=== PATIENT | female | born 1940 | race Caucasian/White ===

== ENCOUNTER 2016-11-09 00:07 | Inpatient (IN) | payer OTHER, BC ==
[2016-11-09] VITALS (7 sets, daily range): BP systolic 127–188; BP diastolic 44–70
[~2016-11-09] VITALS: Ht 154.9 cm; Wt 54.4 kg
[~2016-11-09 00:07] MED LIST: BACTRIM 400 MG-1 TA1 PO; BAYER ASPIRIN R81 MG PO; COREG3.125 MG PO; FERROUS SULFAT325 M1 PO; HYDRALAZINE HY100 M1 PO; HYDRALAZINE50 MG PO; ISORDIL10 M1 PO; LACTINEX1 TAB.CHEW PO; LANTUS INS100 UNITS/ SUBQ; LASIX20 MG PO; LEVAQUIN250 MG PO; NEURONTIN300 MG PO; NOVOLOG100 U/ML SUBQ; PHOSLO667 M1 PO; PRAVACHOL40 MG PO; PRILOSEC40 MG PO; ROCALTROL0.25 MCG PO; SIMVASTATIN10 MG PO; SYNTHROID0.088 MG PO; VITAMIN C500 M8 PO
--- NOTE | 2016-11-09 00:07 | NUR ---
76Y F BIBA C/O LOW BLOOD SUGAR OF 48 BEFORE EMS ARRIVED ON SCENE, EMS GAVE 25G D10, RECHECKED BS AND WAS 219 BEFORE ARRIVING AT [facility], ONCE PT ARRIVED WE RECHECKED BS AND IT WENT DOWN TO 98. PT DAUGHTER STATES STATES SHE WAS CONFUSED AND WEAK BEFORE EMS ARRIVED . PT DENIES N/V/D; SKIN IS PINK/WARM/DRY; AAOX2 ; LUNGS CLEAR BL; HR EVEN AND REGULAR; PT DENIES ANY FEVER, CP, SOB, OR COUGH AT THIS TIME; PATIENT STATES PAIN OF 0/10 AT THIS TIME; VSS; PATIENT POSITIONED FOR COMFORT; HOB ELEVATED; BEDRAILS UP X2; BED DOWN. ER MD MADE AWARE OF PT STATUS.
--- NOTE | 2016-11-09 00:07 | NUR ---
BIBA TO ER BED 3
--- NOTE | 2016-11-09 00:25 | NUR ---
Patient being evaluated by physician at bedside.
[2016-11-09] MEDS ORDERED: DEXTROSE 50% 50 ML SYR IVP ONE (00:40)
--- NOTE | 2016-11-09 00:48 | NUR ---
BS 48 BEFORE GIVING D50
[2016-11-09] MEDS ORDERED: DEXTROSE 10% 1,000 ML IV SCH (01:55)
[2016-11-09] MEDS ORDERED: ONDANSETRON 4 MG/2 ML VIAL IVP PRN (02:10)
[2016-11-09] MEDS ORDERED: MORPHINE SULFATE 2 MG/ML SYR IVP PRN (02:10)
[2016-11-09] MEDS ORDERED: DEXT 5% /NACL 0.9% 1,000 ML IV SCH (02:10)
[2016-11-09] MEDS ORDERED: LORazepam 2 MG/ML VIAL IVP PRN (02:10)
[2016-11-09] MEDS ORDERED: DEXTROSE 50% 50 ML SYR IVP PRN (02:10)
[2016-11-09] MEDS ORDERED: hydrALAZINE 20 MG/ML VIAL IVP PRN (02:15)
--- NOTE | 2016-11-09 02:18 | NUR ---
MED ORDER RECEIVED, CALLED HOUSE SUPER TO BRING FROM PHARMACY. BS AT LAST CHECK 99.
[2016-11-09] MEDS ORDERED: DEXTROSE 10% 1,000 ML IV ONE (02:21)
--- NOTE | 2016-11-09 02:29 | NUR ---
IVF STARTED, INFUSING WITHOUT PROBLEMS. BS AFTER START OF IVF 104.
--- NOTE | 2016-11-09 02:52 | NUR ---
Patient will be admitted to care of DR ALLEN. Admited to TELE 109B. Will go to room 109B. Belongings list completed. Report to EDINSON PETERSON.
--- NOTE | 2016-11-09 03:00 | NUR ---
PATIENT TRANSFERRED FROM ER VIA GURNEY. PATIENT ACCOMPANIED BY DAUGHTER. NO RESPIRATORY DISTRESS, SOB, OR DISCOMFORT. PATIENT IS A 76-YEAR-OLD, FEMALE, DIAGNOSIS: HYPOGLYCEMIA. INITIAL ASSESSMENT AND BODY CHECK DONE. PATIENT IS AOX3, FORGETFUL, IV ACCESS TO RIGHT WRIST 22G, PATENT. DIALYSIS ACCESS TO LEFT UPPER ARM. DISCUSSED PLAN OF CARE, MEDICATION REGIMENT, AND PAIN MANAGEMENT WITH FAMILY MEMBER AND PATIENT. PLACED PATIENT ON SAFETY/FALL PRECAUTIONS. CALL LIGHT LEFT WITHIN REACH, WILL CONTINUE TO MONITOR.
--- NOTE | 2016-11-09 06:09 | NUR ---
PATIENT IN BED, SLEEPING. NO RESPIRATORY DISTRESS, SOB, OR DISCOMFORT. CALL LIGHT LEFT WITHIN REACH, WILL CONTINUE TO MONITOR.
[2016-11-09] MEDS: BLOOD GLUCOSE MONITORING 1 DEV DEV FS SCH ×4 (06:31→21:56)
[2016-11-09] MEDS: INSULIN ASPART SLIDING SCALE 100 UNITS/ML VIAL SUBQ PRN ×3 (06:31→17:48)
--- NOTE | 2016-11-09 07:18 | NUR ---
REPORT GIVEN TO DAY NURSEMARCOS. PATIENT RESTING IN BED, STABLE. NO RESPIRATORY DISTRESS, SOB, OR DISCOMFORT. ALL NEEDS ATTENDED TO DURING SHIFT, CALL LIGHT LEFT WITHIN REACH.
--- NOTE | 2016-11-09 07:18 | NUR ---
RECEIVED REPORT FROM NIGHT NURSE, PT IS AAOX4 CZECH SPEAKING, IV TO RIGHT WRIST 22G INFUSING WELL, LEFT UPPER ARM AV SHUNT, SKIN INTACT, INITIAL ASSESSMENT COMPLETED, PLAN OF CARE REVIEWED WITH PT, PT VERBALIZED UNDERSTANDING. ALL SAFETY/ FALL PRECAUTIONS MET. ORIENTED PT TO ROOM AND ENVIRONMENT. CALL LIGHT WITHIN REACH. WILL CONTINUE TO MONITOR.
[2016-11-09] MEDS ORDERED: DEXT 5% / NACL 0.9% 500 ML IV SCH (08:00)
--- NOTE | 2016-11-09 08:12 | NUR ---
PATIENT HAS BEEN SCREENED AND CATEGORIZED HIGH NUTRITION RISK. PATIENT WILL BE SEEN WITHIN 1-2 DAYS OF ADMISSION. 11/09/16-11/10/[address]
[2016-11-09] MEDS: ASCORBIC ACID 500 MG TAB PO SCH (08:40)
[2016-11-09] MEDS: ISOSORBIDE DINITRATE 10 MG TAB PO SCH ×2 (08:41→21:00)
[2016-11-09] MEDS: FERROUS SULFATE 325 MG TABEC PO SCH ×2 (08:41→16:44)
[2016-11-09] MEDS: LEVOTHYROXINE 0.088 MG TAB PO SCH (08:41)
[2016-11-09] MEDS: PANTOPRAZOLE 40 MG TABEC PO SCH (08:41)
[2016-11-09] MEDS: CALCITRIOL 0.25 MCG CAPLF PO SCH (08:41)
[2016-11-09] MEDS: ECOTRIN 81 MG TABEC PO SCH (08:42)
[2016-11-09] MEDS: ATORVASTATIN 20 MG TAB PO SCH (08:42)
[2016-11-09] MEDS: FUROSEMIDE 20 MG TAB PO SCH (08:43)
[2016-11-09] MEDS: CALCIUM ACETATE 667 MG TAB PO SCH ×3 (08:49→16:44)
[2016-11-09] MEDS: hydrALAZINE 25 MG TAB PO SCH ×2 (08:49→21:00)
--- NOTE | 2016-11-09 08:50 | NUR ---
DUE MEDICATIONS GIVEN, PT TOLERATED WELL. PT CURRENTLY EATING BREAKFAST. CALL LIGHT WITH IN REACH. WILL CONTINUE TO MONITOR.
[2016-11-09] MEDS ORDERED: PANTOPRAZOLE 40 MG INJ VIAL IVP SCH (09:00)
--- NOTE | 2016-11-09 10:45 | NUR ---
CHECKED IN ON PT, PT CURRENTLY AWAKE RESTING IN BED, DAUGHTER AT BEDSIDE. CALL LIGHT WITHIN REACH.
[2016-11-09] MEDS ORDERED: ESCITALOPRAM 20 MG TAB PO SCH (12:00)
[2016-11-09] MEDS ORDERED: DONEPEZIL 10 MG TAB PO SCH (12:00)
--- NOTE | 2016-11-09 12:30 | NUR ---
DR VASQUEZ IN TO SEE PT
[2016-11-09] MEDS: DEXT 5% /NACL 0.9% 1,000 ML IV SCH (12:37)
--- NOTE | 2016-11-09 14:05 | NUR ---
CHECKED IN ON PT, PT CURRENTLY SLEEPING. CALL LIGHT WITHIN REACH.
[2016-11-09] MEDS ORDERED: CARVEDILOL6.25 MG PO (16:22)
[2016-11-09] MEDS ORDERED: ARICEPT5 MG PO (16:24)
[2016-11-09] MEDS ORDERED: LEXAPRO10 MG PO (16:25)
[2016-11-09] MEDS ORDERED: VITAMIN C500 M8 PO (16:25)
[2016-11-09] MEDS ORDERED: COMBIGAN 0.2%-0.5 ML BOTH EYES (16:30)
--- NOTE | 2016-11-09 16:44 | NUR ---
DUE MEDICATIONS GIVEN. PT TOLERATED WELL, DAUGHTER AT BED SIDE. CALL LIGHT WITHIN REACH.
--- NOTE | 2016-11-09 17:45 | NUR ---
HEMODIALYSIS NURSE NOTIFIED.
--- NOTE | 2016-11-09 18:15 | NUR ---
PT CURRENTLY VISITING WITH DAUGHTER. NO S/S OF DISTRESS OR DISCOMFORT NOTED. CALL LIGHT WITHIN REACH. WILL CONTINUE TO MONITOR.
--- NOTE | 2016-11-09 19:16 | NUR ---
ENDORSED PLAN OF CARE TO NIGHT NURSE, PT IN STABLE CONDITION.
--- NOTE | 2016-11-09 19:20 | NUR ---
RECEIVED PT FROM NAGA PETERSON PT IS AAOX4 MOROCCAN SPEAKER AMBULATORY ON TELEMETRY SR, ON SECOND UNITS OF BLOOD TRANSFUSION WILL BE MONITORING Addendum: 11/10/16 at 0036 by Margot Dow RN WRONG DOCUMENTATION PT IS NOT ON BLOOD TRANSFUSION
--- NOTE | 2016-11-09 19:25 | NUR ---
RECEIVED PT FROM MARCOS PETERSON PT IS MACEDONIAN SPEAKER AAOX4 AMBULATES WITH ANNUAL GIVING DIRECTOR, ON TELEMETRY SR, DIALYSIS ACCESS ON LEFT ARM IV ON RT WRIST INFUSING WELL, RELATIVES AT BED SIDE INITIAL ASSESSMENT DONE
[2016-11-09] MEDS: CARVEDILOL 6.25 MG TAB PO SCH (21:00)
[2016-11-09] MEDS: [UNRECOGNIZED DRUG - OTHER] OP SCH (21:00)
[2016-11-09] MEDS ORDERED: TIMOLOL BOTH EYES SCH (21:00)
[2016-11-09] MEDS ORDERED: SIMVASTATIN 10 MG TAB PO SCH (21:00)
[2016-11-09] MEDS: COMBIGAN OP SCH (21:00)
[2016-11-09] MEDS ORDERED: BRIMONIDINE TARTRATE BOTH EYES SCH (21:00)
--- NOTE | 2016-11-09 21:30 | NUR ---
ON BLOOD TRANSFUSION NOT DISTRESS NOTED ON TELEMETRY SR. Addendum: 11/09/16 at 2330 by Margot Dow RN WRONG DOCUMENTATION PT IS NOT ON BLOOD TRANSFUSION
--- NOTE | 2016-11-09 21:31 | NUR ---
BLOOD SUGAR TEST 119 NOT COVERAGE PT EATING HER HS SNACK
[2016-11-10] VITALS: BP 115/51
--- NOTE | 2016-11-10 | NUR ---
PT SLEEPING WELL NOT DISTRESS NOTED ON TELEMETRY SR
[2016-11-10 04:00] VITALS: BP 156/54
[2016-11-10] MEDS: DEXT 5% /NACL 0.9% 1,000 ML IV SCH (04:38)
[2016-11-10] MEDS: INSULIN ASPART SLIDING SCALE 100 UNITS/ML VIAL SUBQ PRN ×4 (06:12→21:15)
[2016-11-10] MEDS: BLOOD GLUCOSE MONITORING 1 DEV DEV FS SCH ×4 (06:20→21:14)
--- NOTE | 2016-11-10 07:15 | NUR ---
RECEIVED REPORT FROM THE PAIRER INSPECTOR NURSE AT BEDSIDE. PT IS A 76F, BELARUSIAN SPEAKING. SHE IS AWAKE AND ALERT. I INTRODUCED MYSELF AND UPDATED THE BOARD. NO COMPLAINTS AT THIS TIME. NOTED PT HAS A R WRIST 22G, D5NS INFUSING AT 40ML/HR. NOTED THE TELE BOX FOR MONITORING. SHE ALSO HAS AN AV SHUNT IN HER L ARM. SHE IS TO HAVE HD TODAY. WILL FOLLOW UP ON WHAT TIME THEY ARE COMING. SHE HAS SCD'S BUT NOT WEARING THEM. ALL SAFETY MEASURES MET. WILL CONTINUE TO MONITOR PT.
--- NOTE | 2016-11-10 07:55 | NUR ---
PT'S V/S ARE WITHIN NORMAL LIMITS. PT IS RESTING IN BED. BREAKFAST IS SERVED. WILL CONTINUE TO MONITOR PT.
[2016-11-10 08:00] VITALS: BP 148/56
[2016-11-10] MEDS: ASCORBIC ACID 500 MG TAB PO SCH (08:55)
[2016-11-10] MEDS: CALCITRIOL 0.25 MCG CAPLF PO SCH (08:55)
[2016-11-10] MEDS: FERROUS SULFATE 325 MG TABEC PO SCH ×2 (08:55→16:09)
[2016-11-10] MEDS: LEVOTHYROXINE 0.088 MG TAB PO SCH (08:55)
[2016-11-10] MEDS: ATORVASTATIN 20 MG TAB PO SCH (08:57)
[2016-11-10] MEDS: DONEPEZIL 10 MG TAB PO SCH (08:57)
[2016-11-10] MEDS: CALCIUM ACETATE 667 MG TAB PO SCH ×3 (08:58→16:09)
[2016-11-10] MEDS: PANTOPRAZOLE 40 MG TABEC PO SCH (08:58)
[2016-11-10] MEDS: ECOTRIN 81 MG TABEC PO SCH (08:58)
[2016-11-10] MEDS: FUROSEMIDE 20 MG TAB PO SCH (08:59)
[2016-11-10] MEDS: CARVEDILOL 6.25 MG TAB PO SCH ×2 (09:00→21:14)
[2016-11-10] MEDS: amLODIPine 5 MG TAB PO SCH (09:00)
[2016-11-10] MEDS: ESCITALOPRAM 20 MG TAB PO SCH (09:00)
[2016-11-10] MEDS: ISOSORBIDE DINITRATE 10 MG TAB PO SCH ×2 (09:00→21:13)
[2016-11-10] MEDS: hydrALAZINE 25 MG TAB PO SCH ×2 (09:00→21:14)
[2016-11-10] MEDS: [UNRECOGNIZED DRUG - OTHER] OP SCH ×2 (09:08→21:13)
[2016-11-10] MEDS: COMBIGAN OP SCH ×2 (09:08→21:13)
--- NOTE | 2016-11-10 09:10 | NUR ---
ADMINISTERED MORNING MEDS. HELD ALL BP MEDS (5) D/T PT HAVING DIALYSIS LATER, PER MARKETING ASSISTANT RETAIL DIVISION. PT TOLERATED ALL HER MORNING MEDS. NOTED THAT NO CONSENT FOR DIALYSIS WAS SIGNED. PRINTED ONE UP AND HAD PT SIGN. PRINTED THE LABS, AND ORDERS OF DIALYSIS NURSE. WILL GIVE TO HER WHEN SHE ARRIVES. PT REQUESTS A BED BATH. LET THE GREENSKEEPER KNOW. WILL CONTINUE TO MONITOR PT.
--- NOTE | 2016-11-10 10:20 | NUR ---
PT RESTING WITH DAUGHTER AT BEDSIDE. PT HAS NO COMPLAINTS. PT IS WAITING FOR HD TODAY. DIALYSIS NURSE NOT HERE YET. WILL CONTINUE TO MONITOR PT.
[2016-11-10 12:00] VITALS: BP 157/63
--- NOTE | 2016-11-10 12:00 | NUR ---
PT RESTING WITH DAUGHTER AT BEDSIDE. BROUGHT IN HER LUNCH TRAY. PLACED ON BEDSIDE TABLE. PT HAS NO COMPLAINTS. READY TO EAT. WILL CONTINUE TO MONITOR PT.
--- NOTE | 2016-11-10 12:25 | NUR ---
THE DIALYSIS NURSE IS HERE. SHE IS SETTING UP FOR DIALYSIS FOR PT. DAUGHTER AT BEDSIDE. DAUGHTER WILL LEAVE DURING DIALYSIS AND WILL COME BACK AFTER WARDS. WILL CONTINUE TO MONITOR PT.
--- NOTE | 2016-11-10 12:41 | NUR ---
11/10/16 RD INITIAL ASSESSMENT COMPLETED PLEASE REFER TO NUTRITION ASSESSMENT UNDER CARE ACTIVITY FOR ESTIMATED NUTRITIONAL NEEDS. RD RECOMMENDATIONS: 1. CONTINUE CCHO 60G TOLERATED 2. RECOMMEND ADD RENAL DIET TO DIET ORDER 3. PT MEETING >75% OF ESTIMATED PROTEIN AND KCAL NEEDS 4. RD WILL F/U 3-5 DAYS; MODERATE RISK. BRYAN GARG, RD
--- NOTE | 2016-11-10 13:51 | NUR ---
PT AMBULATED TO THE BATHROOM. PT TOLERATED WELL. PT HAS NO COMPLAINTS. WILL CONTINUE TO MONITOR. Addendum: 11/10/16 at 1636 by Britni Banuelos RN WRONG PT. .
--- NOTE | 2016-11-10 15:25 | NUR ---
PT COMPLETED THE DIALYSIS. PT TOLERATED WELL. PER DIALYSIS NURSE, HER LAST V/S WAS 105/41. REMOVED 2L. DAUGHTER AT BEDSIDE. WILL CONTINUE TO MONITOR.
[2016-11-10 16:00] VITALS: BP 145/96
--- NOTE | 2016-11-10 16:00 | NUR ---
V/S IS 98.3F, 145/96, 58, 98%. BP HIGH. PROBABLY WILL NEED TO RESUME BP MEDS IN THE EVENING. WILL NOTIFY THE ONCOMING NIGHT NURSE. WILL CONTINUE TO MONITOR.
--- NOTE | 2016-11-10 18:01 | NUR ---
PT ATE HER DINNER. 80%. PT APPETITE IS GOOD. NO URINE SAMPLE YET. THE DAUGHTER WILL LET ME KNOW OR THE ADMITTING COUNSELOR NURSE KNOW. WILL CONTINUE TO MONITOR PT.
--- NOTE | 2016-11-10 19:05 | NUR ---
ENDORSED PT TO THE COOK CANDY NURSE AT BEDSIDE FOR CONTINUITY OF CARE. PT IS RESTING COMFORTABLY W/ DAUGHTER AT BEDSIDE. STILL NO URINE.
--- NOTE | 2016-11-10 19:15 | NUR ---
RECEIVED REPORT FROM DAY NURSEODETTE. PATIENT RESTING IN BED, WATCHING TELEVISION, FAMILY MEMBER AT BEDSIDE. NO RESPIRATORY DISTRESS, SOB, OR DISCOMFORT. INITIAL ASSESSMENT AND BODY CHECK DONE. PATIENT IS AOX4, SKIN IS INTACT, IV ACCESS TO RIGHT WRIST 22G PATENT. PATIENT HAS DIALYSIS TO LEFT UPPER ARM. DISCUSSED PLAN OF CARE, MEDICATION REGIMENT, AND PAIN MANAGEMENT WITH PATIENT AND FAMILY MEMBER. PATIENT VERBALIZED UNDERSTANDING. PLACED PATIENT ON SAFETY/FALL PRECAUTIONS. CALL LIGHT LEFT WITHIN REACH, WILL CONTINUE TO MONITOR.
[2016-11-10 20:00] VITALS: BP 133/56
--- NOTE | 2016-11-10 20:20 | NUR ---
PATIENT TAKEN OFF UNIT VIA WHEELCHAIR FOR CT SCAN.
--- NOTE | 2016-11-10 20:36 | NUR ---
PATIENT RETURNED FROM CT VIA GURNEY. PATIENT TOLERATED WELL. NO RESPIRATORY DISTRESS, SOB, OR DISCOMFORT. CALL LIGHT LEFT WITHIN REACH, WILL CONTINUE TO MONITOR.
--- NOTE | 2016-11-10 22:06 | NUR ---
PATIENT IN BED, SLEEPING. NO RESPIRATORY DISTRESS, SOB, OR DISCOMFORT. CALL LIGHT LEFT WITHIN REACH, WILL CONTINUE TO MONITOR.
[2016-11-11] VITALS: BP 132/64
--- NOTE | 2016-11-11 00:56 | NUR ---
PATIENT ASLEEP. NO RESPIRATORY DISTRESS, SOB, OR DISCOMFORT. CALL LIGHT LEFT WITHIN REACH, WILL CONTINUE TO MONITOR.
--- NOTE | 2016-11-11 03:03 | NUR ---
PATIENT SLEEPING. NO RESPIRATORY DISTRESS, SOB, OR DISCOMFORT. CALL LIGHT LEFT WITHIN REACH, WILL CONTINUE TO MONITOR.
[2016-11-11 04:00] VITALS: BP 138/56
--- NOTE | 2016-11-11 06:06 | NUR ---
PATIENT IN BED, ASLEEP. NO RESPIRATORY DISTRESS, SOB, OR DISCOMFORT. CALL LIGHT LEFT WITHIN REACH, WILL CONTINUE TO MONITOR.
[2016-11-11] MEDS: BLOOD GLUCOSE MONITORING 1 DEV DEV FS SCH ×2 (06:18→11:46)
[2016-11-11] MEDS: INSULIN ASPART SLIDING SCALE 100 UNITS/ML VIAL SUBQ PRN ×2 (06:20→12:36)
--- NOTE | 2016-11-11 07:12 | NUR ---
REPORT GIVEN TO DAY NURSE, GERARD (FARAZ) AND MARIA ESTHER. PATIENT RESTING IN BED, STABLE. NO RESPIRATORY DISTRESS, SOB, OR DISCOMFORT. ALL NEEDS ATTENDED TO DURING SHIFT, CALL LIGHT LEFT WITHIN REACH.
--- NOTE | 2016-11-11 07:14 | NUR ---
RECEIVED PT FROM Estefany NEVES RN AWAKE LYING ON BED, AAOX4, NO S/S OF RESPIRATORY DISTRESS R DISCOMFORT. WITH IV ACCESS ON R WRIST 22G ON SALINE LOCK, PATENT AND INTACT. WITH DIALYSIS ACCESS ON LEFT UPPER ARM PATENT WITH BRUIT AND THRILLS. SKIN IS INTACT. DISCUSSED PLAN OF CARE, PT VERBALIZED UNDERSTANDING. CALL LIGHT WITHIN REACH,. WILL CONTINUE TO MONITOR.
[2016-11-11 08:00] VITALS: BP 141/53
[2016-11-11] MEDS: ISOSORBIDE DINITRATE 10 MG TAB PO SCH (08:24)
[2016-11-11] MEDS: LEVOTHYROXINE 0.088 MG TAB PO SCH (08:24)
[2016-11-11] MEDS: ATORVASTATIN 20 MG TAB PO SCH (08:24)
[2016-11-11] MEDS: hydrALAZINE 25 MG TAB PO SCH (08:24)
[2016-11-11] MEDS: FUROSEMIDE 20 MG TAB PO SCH (08:24)
[2016-11-11] MEDS: ECOTRIN 81 MG TABEC PO SCH (08:25)
[2016-11-11] MEDS: DONEPEZIL 10 MG TAB PO SCH (08:25)
[2016-11-11] MEDS: FERROUS SULFATE 325 MG TABEC PO SCH (08:25)
[2016-11-11] MEDS: ESCITALOPRAM 20 MG TAB PO SCH (08:25)
[2016-11-11] MEDS: CARVEDILOL 6.25 MG TAB PO SCH (08:25)
[2016-11-11] MEDS: PANTOPRAZOLE 40 MG TABEC PO SCH (08:25)
[2016-11-11] MEDS: ASCORBIC ACID 500 MG TAB PO SCH (08:25)
[2016-11-11] MEDS: CALCIUM ACETATE 667 MG TAB PO SCH ×2 (08:26→11:44)
[2016-11-11] MEDS: CALCITRIOL 0.25 MCG CAPLF PO SCH (08:26)
[2016-11-11] MEDS: amLODIPine 5 MG TAB PO SCH (08:26)
[2016-11-11] MEDS: [UNRECOGNIZED DRUG - OTHER] OP SCH (08:27)
[2016-11-11] MEDS: COMBIGAN OP SCH (08:27)
--- NOTE | 2016-11-11 08:30 | NUR ---
DUE MEDS GIVEN, PT TOLERATED WELL. NO S/S OF RESPIRATORY DISTRESS OR DISCOMFORT. ALL NEEDS MET AT THIS TIME. CALL LIGHT WITHIN REACH, WILL CONTINUE TO MONITOR.
[2016-11-11 12:00] VITALS: BP 125/44
--- NOTE | 2016-11-11 12:10 | NUR ---
LUNCH SERVED, PT HAS GOOD APPETITE. WITH RELATIVE AT BEDSIDE. DUE MED GIVEN, TOLERATED WELL. CALL LIGHT WITHIN REACH, WILL CONTINUE TO MONITOR.
--- NOTE | 2016-11-11 14:00 | NUR ---
DISCHARGE TEACHING GIVEN, PT VERBALIZED UNDERSTANDING. HOME MEDICATION (COMBIGAN) GIVEN. NO S/S OF RESPIRATORY DISTRESS OR DISCOMFORT. REMOVED ID WRISTBAND, TELE AND IV ACCESS, CATHETER TIP INTACT. LEFT THE UNIT ON A WHEELCHAIR ACCOMPANIED BY DAUGHTER IN STABLE CONDITION.
== END 2016-11-11 14:00 | disposition home or self-care (01) | DRG 637 ==
LOC: MED 00:07 → MTU 02:36
PROVIDERS: ADMIT Family Medicine; ATTEND Family Medicine
PROC: 5A1D00Z (ICD-10-PCS; principal; 2016-11-10)
DX: E11.649 Type 2 diabetes mellitus with hypoglycemia without coma (principal); G93.41 Metabolic encephalopathy; E43 Unspecified severe protein-calorie malnutrition; I50.43 Acute on chronic combined systolic (congestive) and diastolic (congestive) heart failure; I13.2 Hypertensive heart and chronic kidney disease with heart failure and with stage 5 chronic kidney disease, or end stage renal disease; D68.69 Other thrombophilia; N18.6 End stage renal disease; N17.0 Acute kidney failure with tubular necrosis; E11.65 Type 2 diabetes mellitus with hyperglycemia; E11.22 Type 2 diabetes mellitus with diabetic chronic kidney disease; E11.51 Type 2 diabetes mellitus with diabetic peripheral angiopathy without gangrene; E78.5 Hyperlipidemia, unspecified; D53.9 Nutritional anemia, unspecified; E03.9 Hypothyroidism, unspecified; F32.9 Major depressive disorder, single episode, unspecified; F03.90 Unspecified dementia, unspecified severity, without behavioral disturbance, psychotic disturbance, mood disturbance, and anxiety; K21.9 Gastro-esophageal reflux disease without esophagitis; E83.51 Hypocalcemia; I25.10 Atherosclerotic heart disease of native coronary artery without angina pectoris; I16.0 Hypertensive urgency; D63.8 Anemia in other chronic diseases classified elsewhere; G20 Parkinson's disease; Z99.2 Dependence on renal dialysis; Z68.22 Body mass index [BMI] 22.0-22.9, adult; Z79.899 Other long term (current) drug therapy; Z79.4 Long term (current) use of insulin; Z86.718 Personal history of other venous thrombosis and embolism; Z83.3 Family history of diabetes mellitus

== ENCOUNTER 2016-11-17 11:30 | Emergency (ER) | payer OTHER, BC ==
[~2016-11-17] VITALS: Ht 154.9 cm; Wt 54.4 kg
[~2016-11-17 11:30] MED LIST changes: +ARICEPT5 MG PO; +CARVEDILOL6.25 MG PO; +COMBIGAN 0.2%-0.5 ML BOTH EYES; +LEXAPRO10 MG PO
[2016-11-17 11:37] VITALS: BP 161/81
--- NOTE | 2016-11-17 11:44 | NUR ---
PT AMBULATED WITH ASSISTANCE TO BED 2 AT THIS TIME.
--- NOTE | 2016-11-17 11:54 | NUR ---
PATIENT PRESENTS TO ED WITH DIARRHEA X3 DAYS WITH GEN WEAKNESS. PT DAUGHTER STATES PATIENT WAS FEELING FATIGUED TO GO TO HD TODAY, HX: DM, HTN, HD MWF WITH SHERRY SHUNT HAS BRUIT AND THRILL, HIGH CHOLESTEROL, HYPOTHYROID, AND POSSIBLE CHF. DENIES N/V; SKIN IS PINK/WARM/DRY; AAOX4 WITH EVEN AND STEADY GAIT; LUNGS CLEAR BL; HR EVEN AND REGULAR; PT DENIES ANY FEVER, CP, SOB, OR COUGH AT THIS TIME; PATIENT STATES PAIN OF 0/10 AT THIS TIME; VSS; PATIENT POSITIONED FOR COMFORT; HOB ELEVATED; BEDRAILS UP X2; BED DOWN. ER MD MADE AWARE OF PT STATUS.
[2016-11-17] MEDS ORDERED: NACL 0.9% 1,000 ML IV SCH (11:56)
[2016-11-17 13:57] VITALS: BP 161/81
== END 2016-11-17 13:45 | disposition home or self-care (01) ==
LOC: MED 11:30
DX: E11.65 Type 2 diabetes mellitus with hyperglycemia (principal); R19.7 Diarrhea, unspecified; K21.9 Gastro-esophageal reflux disease without esophagitis; I12.0 Hypertensive chronic kidney disease with stage 5 chronic kidney disease or end stage renal disease; E11.22 Type 2 diabetes mellitus with diabetic chronic kidney disease; N18.6 End stage renal disease; Z79.82 Long term (current) use of aspirin; Z99.2 Dependence on renal dialysis; Z79.4 Long term (current) use of insulin
CPT/HCPCS: 36415; 80053; 83690; 85025; 96360; 99284; J7030

== ENCOUNTER 2017-07-13 20:09 | Emergency (ER) | payer OTHER, BC ==
[~2017-07-13] VITALS: Ht 154.9 cm; Wt 54.4 kg
[2017-07-13 20:18] VITALS: BP 145/71
[2017-07-13] MEDS ORDERED: NOVOLIN R100 UNITS/ SUBQ (20:39)
[2017-07-13] MEDS ORDERED: TOUJEO300 U/ML SC (20:43)
[2017-07-13] MEDS ORDERED: COREG3.125 MG PO (20:44)
[2017-07-13] MEDS ORDERED: MYSOLINE250 MG PO (20:44)
--- NOTE | 2017-07-13 22:11 | NUR ---
PATIENT LEFT WITHOUT BEING SEEN BY DR. franco. NO FURTHER CARE PROVIDED FOR PATIENT.
== END 2017-07-13 22:11 | disposition left against medical advice (07) ==
LOC: MED 20:09
DX: R73.9 Hyperglycemia, unspecified (principal); Z53.21 Procedure and treatment not carried out due to patient leaving prior to being seen by health care provider

== ENCOUNTER 2017-11-13 19:59 | Inpatient (IN) | payer OTHER, BC ==
[~2017-11-13] VITALS: Ht 160 cm; Wt 65.3 kg
[~2017-11-13 19:59] MED LIST changes: -ARICEPT5 MG PO; +ASCO500T45 PO; +ASPI81EC30 PO; -BACTRIM 400 MG-1 TA1 PO; -BAYER ASPIRIN R81 MG PO; +BRIM5SOL2 BOTH EYES; +CARV3.12 PO; -CARVEDILOL6.25 MG PO; -COMBIGAN 0.2%-0.5 ML BOTH EYES; -COREG3.125 MG PO; +DONE5TAB6 PO; +ESCI10TA PO; +FERR-193 PO; -FERROUS SULFAT325 M1 PO; -HYDRALAZINE HY100 M1 PO; -HYDRALAZINE50 MG PO; +INSU100S45 SUBQ; +INSU300S SC; -ISORDIL10 M1 PO; +ISOS10TA9 PO; -LACTINEX1 TAB.CHEW PO; -LANTUS INS100 UNITS/ SUBQ; +LANTUS SUBQ; -LASIX20 MG PO; -LEVAQUIN250 MG PO; +LEVO0.083 PO; -LEXAPRO10 MG PO; -NEURONTIN300 MG PO; -NOVOLOG100 U/ML SUBQ; +OMEP40EC1 PO; +PHO667 PO; -PHOSLO667 M1 PO; +PRAV40TA1 PO; -PRAVACHOL40 MG PO; -PRILOSEC40 MG PO; +PRIM250T70 PO; -ROCALTROL0.25 MCG PO; -SIMVASTATIN10 MG PO; +SLIDE SUBQ; -SYNTHROID0.088 MG PO; -VITAMIN C500 M8 PO
[2017-11-13 20:01] VITALS: BP 153/58
--- NOTE | 2017-11-13 20:07 | NUR ---
77/F BIBA W C/O CONFUSION. EMS REPORTS FAMILY STATES PT HAS BEEN CONFUSED WITH LETHARGY X 1900 TODAY. DAUGHTER REPORTS PT WAS DROWSY, N/V X1, DENIES SOB/CP/COUGH, DENIES ANY PAIN AT THIS TIME. PT PLACED ON ELECTRON BEAM PHOTO MASK MAKER. ACCUCHECK 79, DTR REPORTS PT TOOK INSULIN BEFORE 1830 TODAY, BUT REFUSED TO EAT. GCS 15, AOX4, NO ACUTE DISTRESS NOTED AT THIS TIME. 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
--- NOTE | 2017-11-13 20:07 | NUR ---
BIBA TO ER BED 4
[2017-11-13] MEDS ORDERED: NACL 0.9% 250 ML IV ONE (21:05)
[2017-11-13] MEDS ORDERED: ONDANSETRON 4 MG/2 ML VIAL IVP ONE (21:05)
--- NOTE | 2017-11-13 22:00 | NUR ---
Patient appears to be resting comfortably in bed. Vital Signs within normal limits. Respirations even and unlabored.
[2017-11-13 22:39] LABS: HEMATOCRIT 39.6 % (36-48); HEMOGLOBIN 13.2 g/dL (12.0-16.0); MEAN CORPUSCULAR HEMOGLOBIN 32 pg (27-31); MEAN CORPUSCULAR HGB CONC 33 g/dL (33-37); MEAN CORPUSCULAR VOLUME 96 fL (80-94); PLATELET COUNT (AUTO) 152 K/uL (140-450); RED BLOOD CELL COUNT(AUTO) 4.12 MIL/uL (4.20-5.40); RED CELL DISTRIBUTION WIDTH 14.9 % (11.6-13.7); WHITE BLOOD COUNT (AUTO) 11.9 K/uL (4.8-10.8)
[2017-11-13 22:52] LABS: ALBUMIN 3.9 g/dL (3.4-5.0); ANION GAP 16.1 (8-16); ASPARTATE AMINOTRANSFERASE 21 U/L (15-37); CARBON DIOXIDE 31.4 mmol/L (21-32); CHLORIDE 91 mmol/L (98-107); GLUCOSE 97 mg/dL (74-106); POTASSIUM 5.5 mmol/L (3.5-5.1); SODIUM SERUM 133 mmol/L (136-145); TOTAL BILIRUBIN 0.5 mg/dL (0.0-1.0); UREA NITROGEN, BLOOD 53 mg/dL (7-18)
[2017-11-13 22:54] LABS: APPEARANCE,URINE CLEAR (CLEAR); BILIRUBIN,URINE NEGATIVE (NEGATIVE); BLOOD, URINE NEGATIVE (NEGATIVE); COLOR,URINE YELLOW (YELLOW); LEUKOCYTE ESTERASE ,URINE NEGATIVE (NEGATIVE); NITRITE, URINE NEGATIVE (NEGATIVE); UGLUCOSE NEGATIVE (NEGATIVE)
--- NOTE | 2017-11-13 22:56 | NUR ---
REPORT GIVEN TO NICHOLAS JEFFERSON ON ABNORMAL CREATINE LABS.
[2017-11-13 22:58] LABS: CREATININE 5.2 mg/dL (0.6-1.3)
[2017-11-13 23:06] LABS: EOSINOPHILS % (MANUAL) 2 % (0-4); LYMPHOCYTES % (MANUAL) 18 % (20-46); MONOCYTES % (MANUAL) 2 % (5-12)
[2017-11-13 23:23] LABS: HYALINE CASTS, URINE 0-10 /LPF (None Seen); RBC,URINE 0-5 (RARE) /HPF (0-5); WBC,URINE 0-5 (RARE) /HPF (0-5)
--- NOTE | 2017-11-13 23:33 | NUR ---
Patient will be admitted to care of GARRETT. Admited to TELE. Will go to room 107A. Belongings list completed. BEDSIDE Report to NENA ARMAS.IV SL AND PATENT
[2017-11-13] MEDS ORDERED: HYDROcodone/APAP 7.5/325 MG 1 TAB PO PRN (23:50)
[2017-11-13] MEDS ORDERED: ONDANSETRON 4 MG/2 ML VIAL IVP PRN (23:50)
[2017-11-13] MEDS ORDERED: ACETAMINOPHEN 325 MG TAB PO PRN (23:50)
[2017-11-14 00:20] VITALS: BP 158/72
--- NOTE | 2017-11-14 00:20 | NUR ---
PATIENT IS AWAKE ALERT ORIENTED WITH PERIODS OF FORGETFULNESS SPEAKS GIBRALTARIAN IS ACCOMPANIED BY DAUGHTER BLUE ADMIT DX WEAKNESS.PATIENT COMPLAINS OF ABDOMINAL PAIN FOR 2 DAYS WITH NAUSEA AND VOMITING PATIENT STATES," I LAST VOMITED YESTERDAY." PATIENT DENIES ANY EPISODE OF N/V TODAY OR DIARRHEA PATIENT STATES SHE FEELS WEAK. PATIENT AND DAUGHTER BLUE INFORMED ME THAT PATIENT HAS FALLEN IN THE PAST AND PATIENT USES A WALKER OR A CANE AT HOME AND NEEDS ASSISTANCE TO WALK. SKIN CHECK DONE UPON ADMISSION AND PATIENT SKIN IS CURRENTLY INTACT. VITALS SIGNS TAKEN AND PATIENT HAS NO COMPLAINS OF PAIN AT THIS TIME PATIENT STATES,"ONLY IF I TOUCH MY STOMACH I FEEL THE PAIN." PATIENT AND DAUGHTER BLUE WERE ORIENTED HOW TO USE THE CALL LIGHT AND ORIENTED TO ROOM AND VISITING HOURS. PLAN OF CARE DISCUSSED WITH THE PATIENT AND DAUGHTER MEDICAL INFORMATION OBTAINED ALSO BY DAUGHTER.WILL CONTINUE TO MONITOR.
[2017-11-14] MEDS ORDERED: LEVOFLOXACIN 750 MG/D5W PREMIX 150 ML IV SCH (00:30)
--- NOTE | 2017-11-14 00:30 | NUR ---
Patient's Plan of Care was discussed and reviewed with PAWEL: ASHISH
[2017-11-14 00:38] LABS: CHOL/HDL RATIO 3.2 (1-4.5); FREE T4 (FREE THYROXINE) 1.17 ng/dL (0.76-1.46); MAGNESIUM 2.6 mg/dL (1.8-2.4); PHOSPHORUS 5.6 mg/dL (2.5-4.9); THYROID STIMULATING HORMONE 3.85 uIU/mL (0.34-3.74)
--- NOTE | 2017-11-14 01:00 | NUR ---
I CALLED DAUGHTER BLUE AND SHE WAS ABLE TO TELL ME PATIENT'S BARRATTE OPERATOR NAME MD DIGGS AND SHE ALSO TOLD ME THAT PATIENT GETS DIALYZED AT THE [facility] ON Tue,TUE, AND TUE. MD GAY WAS INFORMED.
[2017-11-14] MEDS: NACL 0.9% 1,000 ML IV SCH ×2 (01:15→23:48)
--- NOTE | 2017-11-14 01:25 | NUR ---
PATIENT SLEEPING ANTIBIOTIC LEVAQUIN IV CURRENTLY INFUSING WELL.WILL CONTINUE TO MONITOR THE PATIENT.
[2017-11-14] MEDS ORDERED: PRIMIDONE 250 MG TAB PO PRN (01:30)
--- NOTE | 2017-11-14 01:30 | NUR ---
MRSA HAS BEEN COLLECTED AND SEND TO THE LAB. FORKLIFT MATERIAL HANDLER DEVON BROUGHT SOME SCD'S FOR THE PATIENT PATIENT EDUCATION DONE ON THE IMPORTANCE OF WEARING SCD'S TO DVT PROPHALAXIS PATIENT VERBALIZES UNDERSTANDING WILL CONTINUE TO MONITOR.PATIENT HAS BEEN SEEN BY MD GAY.
[2017-11-14 01:47] LABS: PROTHROMBIN TIME 10.3 secs (10.8-13.4)
--- NOTE | 2017-11-14 03:30 | NUR ---
PATIENT SLEEPING WELL IN NO DISTRESS WILL CONTINUE TO MONITOR.
[2017-11-14 04:00] VITALS: BP 145/65
[2017-11-14] MEDS: metroNIDAZOLE 500 MG/NS PREMIX 100 ML IV SCH ×3 (04:32→21:35)
[2017-11-14] MEDS ORDERED: metroNIDAZOLE 500 MG/NS PREMIX 100 ML IV SCH (05:00)
--- NOTE | 2017-11-14 05:52 | NUR ---
PATIENT IS CURRENTLY RESTING IN BED SLEEPING. I ASKED MDM SR DEVON IF SHE COULD GET SYNTHROID MED FOR THIS MORNING ITS NOT AVAILABLE IN TELE OR MEDSURG. RN DEVON SAID SHE WILL ASK PHARMACY THIS MORNING WHEN THEY COME IN.
[2017-11-14] MEDS: BLOOD GLUCOSE MONITORING 1 DEV DEV FS SCH ×4 (06:23→21:35)
--- NOTE | 2017-11-14 06:24 | NUR ---
PATIENT ACCUCHECK DONE BLOOD SUGAR 167 NO INSULIN GIVEN PATIENT IS NPO AT THIS TIME AND PATIENT STATES." MY BLOOD SUGAR WILL DROP FAST IF YOU GIVE ME INSULIN AND I DON'T EAT." I WILL ENDORSE TO AM SHIFT FOR NOW PATIENT IS RESTING COMFORTABLY IN BED.CALL LIGHT WITHIN REACH WILL CONTINUE TO MONITOR.
--- NOTE | 2017-11-14 07:22 | NUR ---
PATIENT IS CURRENTLY SLEEPING REPORT ENDORSED AT BEDSIDE TO RN SHANE.
--- NOTE | 2017-11-14 07:25 | NUR ---
RECEIVED REPORT FROM UTILITY TECHNICIAN NURSE. PT IS SLEEPING IN BED BUT EASILY AWAKEN, PT IS AAOX4, AMBULATES WITH ASSIST, SKIN IS INTACT, IV IS ON THE RT AC, PATENT, INTACT, FLUSHING WELL, NO S/S OF RESPIRATORY DISTRESS OR DISCOMFORT NOTED, DISCUSSED PLAN OF CARE WITH PT, PT VERBALIZED UNDERSTANDING, SAFETY/FALL PRECAUTIONS ARE IN PLACE, CALL LIGHT IS WITHIN REACH, WILL CONTINUE TO MONITOR.
[2017-11-14 08:00] VITALS: BP 151/51
[2017-11-14] MEDS: ECOTRIN 81 MG TABEC PO SCH (08:31)
[2017-11-14] MEDS: LEVOTHYROXINE 0.088 MG TAB PO SCH (08:31)
[2017-11-14] MEDS: ESCITALOPRAM 20 MG TAB PO SCH (08:32)
[2017-11-14] MEDS: CALCIUM ACETATE 667 MG TAB PO SCH ×3 (08:33→17:30)
[2017-11-14] MEDS: PANTOPRAZOLE 40 MG TABEC PO SCH (08:33)
[2017-11-14] MEDS: DOCUSATE SODIUM 100 MG GELCAP PO SCH ×2 (08:34→21:35)
[2017-11-14] MEDS: LACTOBACILLUS RHAMNOSUS GG 1 EACH CAP PO SCH (08:34)
[2017-11-14] MEDS: FERROUS SULFATE 325 MG TABEC PO SCH ×2 (08:34→17:30)
--- NOTE | 2017-11-14 08:34 | NUR ---
DUE MEDICATIONS GIVEN, PT TOLERATED WELL, CALL LIGHT IS WITHIN REACH.
[2017-11-14] MEDS: DONEPEZIL 10 MG TAB PO SCH (08:35)
[2017-11-14] MEDS: ASCORBIC ACID 500 MG TAB PO SCH (08:36)
[2017-11-14] MEDS: CARVEDILOL 3.125 MG TAB PO SCH ×2 (08:37→21:34)
[2017-11-14] MEDS: ISOSORBIDE DINITRATE 10 MG TAB PO SCH ×2 (08:37→21:35)
[2017-11-14] MEDS ORDERED: METOCLOPRAMIDE 10 MG TAB PO PRN (08:50)
[2017-11-14] MEDS ORDERED: NON-FORMULARY ITEM (Pravastatin Sodium* (Pravachol*) 40 MG) PO SCH (09:00)
[2017-11-14] MEDS ORDERED: TIMOLOL BOTH EYES SCH (09:00)
[2017-11-14] MEDS ORDERED: BRIMONIDINE TARTRATE BOTH EYES SCH (09:00)
--- NOTE | 2017-11-14 09:02 | NUR ---
PATIENT HAS BEEN SCREENED AND CATEGORIZED MODERATE NUTRITION RISK. PATIENT WILL BE SEEN WITHIN 3-5 DAYS OF ADMISSION. 11/16/17-11/18/[address]
[2017-11-14] MEDS: SIMVASTATIN 20 MG TAB PO SCH (10:28)
--- NOTE | 2017-11-14 10:56 | NUR ---
ASSISTED PT TO RESTROOM AND BACK INTO BED, PATIENT'S DAUGHTER IS AT BEDSIDE.
[2017-11-14 12:00] VITALS: BP 144/55
--- NOTE | 2017-11-14 12:06 | NUR ---
PT TAKEN OFF UNIT AND TAKEN TO RADIOLOGY FOR CT SCAN. PT LEFT IN STABLE CONDITION.
--- NOTE | 2017-11-14 12:27 | NUR ---
NOTIFIED DIALYSIS NURSE PARKER. PT IS IN NEED OF DIALYSIS TODAY.
--- NOTE | 2017-11-14 13:05 | NUR ---
PT HAS RETURNED TO HER ROOM. PT DAUGHTER AT BEDSIDE. PT HAD A LOOSE BM THAT REQUIRED ASSISTANCE TO THE TOILET BY THE NURSE. PT WAS CLEANED UP, NEW YELLOW GOWN AND YELLOW SOCKS WERE PUT ON. PT NOW IN BED RESTING. NO S/S OF DISTRESS. IV WAS CONNECTED. MEDICATIONS ADMINISTERED AND WELL TOLERATED. CALL LIGHT WITHIN REACH. WILL CONTINUE TO MONITOR.
--- NOTE | 2017-11-14 15:51 | NUR ---
PT IN BED RESTING. DAUGHTER IN ROOM WITH HER. WAITING FOR DIALYSIS NURSE TO START. SPOKE WITH DIALYSIS NURSE AND SHE ESTIMATES BEGINNING DIALYSIS AT 1800. NO S/S OF RESPIRATORY DISTRESS OR DISCOMFORT. CALL LIGHT WITHIN REACH. BED IN LOWEST POSITION. WILL CONTINUE TO MONITOR.
[2017-11-14 16:00] VITALS: BP 140/45
--- NOTE | 2017-11-14 17:23 | NUR ---
ENDORSED TO NICHOLAS NEVES. PT STABLE AT THIS TIME.
--- NOTE | 2017-11-14 19:26 | NUR ---
PATIENT REPORT GIVEN AT BEDSIDE. PATIENT ENDORSED IN STABLE CONDITION. HEMODIALYSIS IN PROGRESS
--- NOTE | 2017-11-14 19:27 | NUR ---
RECEIVED REPORT FROM DAY SHIFT NURSE. HEMODIALYSIS ON GOING, AV FISTULA TO LEFT UPPER ARM. NO DISTRESS NOTED. DIALYSIS NURSE AT BEDSIDE. IV TO RIGHT AC #20G, NS AT 20 ML/HR. SAFETY PRECAUTION IN PLACE. CALL LIGHT WITHIN REACH. WILL CONTINUE TO MONITOR.
--- NOTE | 2017-11-14 21:10 | NUR ---
HEMODIALYSIS DONE. OUTPUT 1600 ML. V/S WITHIN NORMAL LIMITS. WILL CONTINUE TO MONITOR.
[2017-11-14] MEDS: INSULIN LISPRO SLIDING SCALE 100 UNITS/ML VIAL SUBQ PRN (21:26)
[2017-11-14] MEDS: INSULIN LANTUS 100 UNITS/ML 10 ML VIAL SUBQ SCH (21:34)
--- NOTE | 2017-11-14 21:36 | NUR ---
V/S TAKEN. BP 127/50, HR 60. DR. BURGER MADE AWARE OF V/S AND SAID IT'S OKAY TO GIVE BP MEDS.
--- NOTE | 2017-11-14 22:00 | NUR ---
PT IN BED, AWAKE. NO C/O PAIN. AV FISTULA DRESSING CLEAN DRY AND INTACT. PT KEPT CLEAN, DRY AND COMFORTABLE. SAFETY PRECAUTION IN PLACE. CALL LIGHT WITHIN REACH.
[2017-11-15] VITALS: BP 122/53
--- NOTE | 2017-11-15 00:20 | NUR ---
PT SLEEPING BUT EASILY AROUSABLE. NO DISTRESS NOTED. SAFETY PRECAUTION IN PLACE. CALL LIGHT WITHIN REACH.
--- NOTE | 2017-11-15 03:05 | NUR ---
PT SLEEPING BUT WAKES EASILY. NO S/S OF PAIN OR DISCOMFORT. CALL LIGHT WITHIN REACH.
[2017-11-15] MEDS: metroNIDAZOLE 500 MG/NS PREMIX 100 ML IV SCH ×3 (05:38→21:00)
[2017-11-15] MEDS: LEVOTHYROXINE 0.088 MG TAB PO SCH (05:39)
--- NOTE | 2017-11-15 06:00 | NUR ---
BS CHECKED 53. DEXTROSE 50% ABBOJECT IVP ADMINISTERED ORDERED. WILL CONTINUE TO MONITOR.
[2017-11-15] MEDS: DEXTROSE 50% 50 ML SYR IVP PRN ×2 (06:15→21:23)
--- NOTE | 2017-11-15 07:00 | NUR ---
RECHECKED BLOOD SUGAR 184. NO DISTRESS NOTED. CALL LIGHT WITHIN REACH.
[2017-11-15 07:09] LABS: BASOPHILS # (AUTO) 0.1 K/uL (0.00-0.22); BASOPHILS % (AUTO) 0.8 % (0.0-2.0); EOSINOPHILS # (AUTO) 0.1 K/uL (0-0.4); HEMATOCRIT 35.1 % (36-48); HEMOGLOBIN 11.7 g/dL (12.0-16.0); LYMPHOCYTES # (AUTO) 0.6 K/uL (2.5-16.5); LYMPHOCYTES % (AUTO) 8.9 % (20.5-51.1); MEAN CORPUSCULAR HEMOGLOBIN 32 pg (27-31); MEAN CORPUSCULAR HGB CONC 33 g/dL (33-37); MEAN CORPUSCULAR VOLUME 96 fL (80-94); MONOCYTES # (AUTO) 0.6 K/uL (0.8-1.0); MONOCYTES % (AUTO) 8.8 % (1.7-9.3); NEUTROPHILS # (AUTO) 4.9 K/uL (1.8-7.7); NEUTROPHILS % (AUTO) 79.5 % (42.2-75.2); PLATELET COUNT (AUTO) 157 K/uL (140-450); RED BLOOD CELL COUNT(AUTO) 3.67 MIL/uL (4.20-5.40); RED CELL DISTRIBUTION WIDTH 15.3 % (11.6-13.7); WHITE BLOOD COUNT (AUTO) 6.3 K/uL (4.8-10.8)
--- NOTE | 2017-11-15 07:15 | NUR ---
ENDORSED PT TO DAY SHIFT NURSE. PT IN STABLE CONDITION.
--- NOTE | 2017-11-15 07:20 | NUR ---
RECEIVED REPORT FROM EQUIPMENT RECORDS SUPERVISOR NURSE, PT IS SLEEPING IN BED AT THIS TIME BUT EASILY AWAKEN, PT IS AAOX4, FORGETFUL, AMBULATES WITH ASSIST, IV IS ON THE RIGHT AC, PATENT, INTACT, FLUSHING WELL, NO S/S OF RESPIRATORY DISTRESS OR DISCOMFORT NOTED, DISCUSSED PLAN OF CARE WITH PT, PT VERBALIZED UNDERSTANDING, SAFETY/FALL PRECAUTIONS ARE IN PLACE, CALL LIGHT IS WITHIN REACH, WILL CONTINUE TO MONITOR.
[2017-11-15 07:23] LABS: PHOSPHORUS 4.7 mg/dL (2.5-4.9)
[2017-11-15 07:25] LABS: ANION GAP 13.1 (8-16); CARBON DIOXIDE 29.7 mmol/L (21-32); CHLORIDE 101 mmol/L (98-107); CREATININE 3.3 mg/dL (0.6-1.3); GLUCOSE 64 mg/dL (74-106); POTASSIUM 3.8 mmol/L (3.5-5.1); SODIUM SERUM 140 mmol/L (136-145); UREA NITROGEN, BLOOD 22 mg/dL (7-18)
[2017-11-15 08:00] VITALS: BP 180/63
[2017-11-15] MEDS: DOCUSATE SODIUM 100 MG GELCAP PO SCH ×2 (08:13→21:09)
[2017-11-15] MEDS: BLOOD GLUCOSE MONITORING 1 DEV DEV FS SCH ×4 (08:23→21:13)
[2017-11-15] MEDS: CALCIUM ACETATE 667 MG TAB PO SCH ×3 (08:50→17:14)
[2017-11-15] MEDS: ISOSORBIDE DINITRATE 10 MG TAB PO SCH ×2 (08:52→21:10)
[2017-11-15] MEDS: ECOTRIN 81 MG TABEC PO SCH (08:52)
[2017-11-15] MEDS: ESCITALOPRAM 20 MG TAB PO SCH (08:53)
[2017-11-15] MEDS: PANTOPRAZOLE 40 MG TABEC PO SCH (08:54)
[2017-11-15] MEDS: SIMVASTATIN 20 MG TAB PO SCH (08:54)
[2017-11-15] MEDS: LACTOBACILLUS RHAMNOSUS GG 1 EACH CAP PO SCH (08:54)
[2017-11-15] MEDS: DONEPEZIL 10 MG TAB PO SCH (08:54)
[2017-11-15] MEDS: ASCORBIC ACID 500 MG TAB PO SCH (08:55)
[2017-11-15] MEDS: FERROUS SULFATE 325 MG TABEC PO SCH ×2 (08:55→17:14)
[2017-11-15] MEDS: CARVEDILOL 3.125 MG TAB PO SCH ×2 (08:55→21:09)
--- NOTE | 2017-11-15 09:44 | NUR ---
PATIENT HAS BEEN SCREENED AND CATEGORIZED MODERATE NUTRITION RISK. PATIENT WILL BE SEEN WITHIN 3-5 DAYS OF ADMISSION. 11/16/17-11/18/[address]
[2017-11-15] MEDS: INSULIN LISPRO SLIDING SCALE 100 UNITS/ML VIAL SUBQ PRN ×2 (12:09→17:58)
--- NOTE | 2017-11-15 14:30 | NUR ---
CALLED THE PATIENT'S DAUGHTER BULE AT [phone], I LET HER KNOW DR. MOLINA, THE GI SPECIALIST HAD CAME IN TO SEE THE PATIENT AND WAS RECOMMENDING AN EGD AND COLONOSCOPY TO BE DONE. BLUE ASKED ME TO CALL HER SISTER FERNANDA AT [phone] BECAUSE SHE WAS OUT OF TOWN TODAY.
[2017-11-15] MEDS ORDERED: MAGNESIUM CITRATE 300 ML BTL PO SCH (15:36)
[2017-11-15 16:00] VITALS: BP 156/65
--- NOTE | 2017-11-15 17:00 | NUR ---
I CALLED THE PATIENT'S DAUGHTER FERNANDA AT [phone], I LET HER KNOW THE DR. MOLINA WAS RECOMMENDING AN EGD AND COLONOSCOPY. FERNANDA SAID SHE WOULD BE COMING IN TODAY TO SEE THE PATIENT AND SIGN THE CONSENT.
[2017-11-15] MEDS: SENNA 8.6 MG TAB PO SCH (17:14)
--- NOTE | 2017-11-15 18:37 | NUR ---
CALLED DIALYSIS NURSE TO LET HER KNOW THERE WAS DIALYSIS ORDERED FOR THE PATIENT. PARKER SAID SHE WOULD BE HERE EARLY TOMORROW MORNING.
--- NOTE | 2017-11-15 19:20 | NUR ---
PT STABLE AT THIS TIME. ENDORSED PT TO MARINE CARGO SURVEYOR NURSE FOR CONTINUITY OF CARE.
--- NOTE | 2017-11-15 19:21 | NUR ---
RECD. RESTING IN BED, AWAKE A/OX3, WITH FORGETFULNESS, RESPIRATION EVEN AND UNLABORED. IV OF NS AT 20 ML/HR INFUSING, RIGHT WRIST G22. AV SHUNT AT THE LEFT ARM WITH BRUIT AND THRILL. CONVERSING WITH FAMILY AT THE BEDSIDE. PLAN OF CARE FOR THE SHIFT DISCUSSED. INSTRUCTED TO CALL NURSE BEFORE GETTING OUT OF BED. VERBALIZED UNDERSTANDING. SAFETY MEASURES ENFORCED. DENIES PAIN 0/10.
--- NOTE | 2017-11-15 19:30 | NUR ---
Patient's Plan of Care was discussed and reviewed with LINE DECORATOR: HEIDI
[2017-11-15] MEDS: INSULIN LANTUS 100 UNITS/ML 10 ML VIAL SUBQ SCH (21:00)
[2017-11-15] MEDS ORDERED: LEVOFLOXACIN 750 MG/D5W PREMIX 150 ML IV SCH (21:00)
[2017-11-15] MEDS: LACTULOSE 20 GM/30 ML UDC PO SCH (21:09)
--- NOTE | 2017-11-15 21:23 | NUR ---
BS - 42, MEDICATED WITH D50 IVP BY CHARGE NURSE CHARLES.
[2017-11-15] MEDS ORDERED: DEXT 5% / NACL 0.45% 1,000 ML IV SCH (21:40)
--- NOTE | 2017-11-15 23:00 | NUR ---
INSTRUCTED NPO PAST MIDNIGHT FOR EGD/COLONOSCOPY TOMORROW. VERBALIZED UNDERSTANDING.
[2017-11-16] VITALS: BP 142/61
--- NOTE | 2017-11-16 00:30 | NUR ---
HAD LOOSE BM IN BED, BROWNISH COLORED, MODERATE AMOUNT, NOT YET CLEAR. CLEANSED AND MADE COMFORTABLE IN BED.
--- NOTE | 2017-11-16 04:00 | NUR ---
SITTING ON THE BSC, HAVING BM. ASSISTED BACK TO BED, SAFETY MAINTAINED.
[2017-11-16] MEDS: metroNIDAZOLE 500 MG/NS PREMIX 100 ML IV SCH ×2 (06:31→12:20)
[2017-11-16] MEDS: BLOOD GLUCOSE MONITORING 1 DEV DEV FS SCH ×4 (06:49→20:38)
[2017-11-16] MEDS: LEVOTHYROXINE 0.088 MG TAB PO SCH (06:49)
[2017-11-16 06:53] LABS: BASOPHILS # (AUTO) 0.1 K/uL (0.00-0.22); BASOPHILS % (AUTO) 1.4 % (0.0-2.0); EOSINOPHILS # (AUTO) 0.1 K/uL (0-0.4); EOSINOPHILS % (AUTO) 2.5 % (0.0-4.0); HEMATOCRIT 33.3 % (36-48); HEMOGLOBIN 10.9 g/dL (12.0-16.0); LYMPHOCYTES # (AUTO) 0.7 K/uL (2.5-16.5); LYMPHOCYTES % (AUTO) 11.6 % (20.5-51.1); MEAN CORPUSCULAR HEMOGLOBIN 31 pg (27-31); MEAN CORPUSCULAR HGB CONC 33 g/dL (33-37); MEAN CORPUSCULAR VOLUME 95 fL (80-94); MONOCYTES # (AUTO) 0.6 K/uL (0.8-1.0); MONOCYTES % (AUTO) 10.3 % (1.7-9.3); NEUTROPHILS # (AUTO) 4.2 K/uL (1.8-7.7); NEUTROPHILS % (AUTO) 74.2 % (42.2-75.2); PLATELET COUNT (AUTO) 152 K/uL (140-450); RED CELL DISTRIBUTION WIDTH 15.1 % (11.6-13.7); WHITE BLOOD COUNT (AUTO) 5.7 K/uL (4.8-10.8)
[2017-11-16 07:10] LABS: ANION GAP 14.1 (8-16); CHLORIDE 98 mmol/L (98-107); GLUCOSE 180 mg/dL (74-106); POTASSIUM 4.1 mmol/L (3.5-5.1); SODIUM SERUM 135 mmol/L (136-145); UREA NITROGEN, BLOOD 36 mg/dL (7-18)
[2017-11-16 07:17] LABS: CREATININE 4.7 mg/dL (0.6-1.3)
--- NOTE | 2017-11-16 07:20 | NUR ---
CONDITION REMAIN STABLE. DIALYSIS NURSE AT THE BEDSIDE. ENDORSED TO NICHOLAS KNOTT FOR CONTINUITY OF CARE.
[2017-11-16 07:22] LABS: MAGNESIUM 2.4 mg/dL (1.8-2.4); PHOSPHORUS 4.6 mg/dL (2.5-4.9)
--- NOTE | 2017-11-16 07:50 | NUR ---
PT NOTE 730 UNABLE TO SEE Pt FOR TX DUE TO ONGOING DIALYSIS; WILL FOLLOW UP W/Pt TOMORROW.
--- NOTE | 2017-11-16 07:55 | NUR ---
CALLED PT'S DAUGHTER BLUE TO GET CONSENT FOR EGD AND COLONOSCOPY. ALSO WITNESSED BY CHARGE NURSE MICHAEL.
[2017-11-16 08:00] VITALS: BP 160/67
[2017-11-16] MEDS: CALCIUM ACETATE 667 MG TAB PO SCH ×4 (08:00→17:37)
[2017-11-16] MEDS: FERROUS SULFATE 325 MG TABEC PO SCH (08:00)
[2017-11-16] MEDS: DONEPEZIL 10 MG TAB PO SCH ×2 (08:09→09:00)
[2017-11-16] MEDS: ISOSORBIDE DINITRATE 10 MG TAB PO SCH ×2 (08:10→20:43)
--- NOTE | 2017-11-16 08:10 | NUR ---
MEDICATIONS WERE HOLD BECAUSE PT IS GETTING DIALYSIS AT THIS TIME AND WILL GO FOR EGD AND COLONOSCOPY PROCEDURE LATER. CONFIRMED HOLDING MEDICATIONS WITH CHARGE NURSE MICHAEL AND DIALYSIS NURSE KEI
[2017-11-16] MEDS: ECOTRIN 81 MG TABEC PO SCH (08:11)
[2017-11-16] MEDS: CARVEDILOL 3.125 MG TAB PO SCH ×3 (08:11→20:42)
[2017-11-16] MEDS: LACTULOSE 20 GM/30 ML UDC PO SCH ×2 (08:15→11:27)
[2017-11-16] MEDS: SENNA 8.6 MG TAB PO SCH ×2 (08:16→11:27)
[2017-11-16] MEDS: LACTOBACILLUS RHAMNOSUS GG 1 EACH CAP PO SCH (08:16)
[2017-11-16] MEDS: DOCUSATE SODIUM 100 MG GELCAP PO SCH (08:16)
[2017-11-16] MEDS: PANTOPRAZOLE 40 MG TABEC PO SCH (08:16)
[2017-11-16] MEDS: ESCITALOPRAM 20 MG TAB PO SCH (08:16)
[2017-11-16] MEDS: SIMVASTATIN 20 MG TAB PO SCH (08:17)
[2017-11-16] MEDS: ASCORBIC ACID 500 MG TAB PO SCH (08:17)
--- NOTE | 2017-11-16 11:20 | NUR ---
DIALYSIS WERE FINISHED, 1.8L TAKEN OUT. PT LAST BP WAS 165/53. BLOOD PRESSURE MED COREG GIVEN.
[2017-11-16 12:30] VITALS: BP 145/77
[2017-11-16] MEDS: INSULIN LISPRO SLIDING SCALE 100 UNITS/ML VIAL SUBQ PRN ×3 (12:40→20:39)
[2017-11-16] MEDS ORDERED: MIDAZOLAM 2 MG/2 ML VIAL ONE (14:29)
[2017-11-16] MEDS ORDERED: diphenhydrAMINE 50 MG/ML VIAL ONE (14:29)
[2017-11-16] MEDS ORDERED: fentaNYL 0.05 MG/ML VIAL ONE (14:29)
--- NOTE | 2017-11-16 14:30 | NUR ---
PT TAKEN TO OR FOR EGD AND COLONOSCOPY. TICKET TO RIDE PROVIDED. PT IS IN STABLE CONDITION.
--- NOTE | 2017-11-16 15:20 | NUR ---
PT IS BACK TO THE UNIT, VITALS TAKEN AND DOCUMENTED. NO S/S OF DISTRESS NOTED.
[2017-11-16 15:30] VITALS: BP 109/55
[2017-11-16] MEDS ORDERED: fentaNYL 0.05 MG/ML VIAL IVP ONE (15:35)
[2017-11-16] MEDS ORDERED: MIDAZOLAM 2 MG/2 ML VIAL IVP ONE (15:35)
--- NOTE | 2017-11-16 16:10 | NUR ---
CALLED DAUGHTER BLUE TO GIVE UPDATE ON THE PT. PER BLUE, SHE IS NOT AVAILABLE TOMORROW, SO SHE LEFT PHONE NUMBERS OF THE OTHER DAUGHTER AND SON IN LAW, IN CASE PT GETS DISCHARGED TOMORROW.
[2017-11-16] MEDS: NACL 0.9% 1,000 ML IV SCH (16:15)
--- NOTE | 2017-11-16 18:00 | NUR ---
PUT SCD BACK ON, PT EATING DINNER, NO S/S OF ACUTE DISTRESS.
--- NOTE | 2017-11-16 19:22 | NUR ---
ENDORSED PT TO MANAGER STAR NURSE. PT IS AWAKE AND IN STABLE CONDITION.
--- NOTE | 2017-11-16 19:23 | NUR ---
RECEIVED REPORT FROM DAY SHIFT NURSE. PT IS A/OX2, CONFUSED, [place] SPEAKING. ON ROOM AIR. LEFT AV FISTULA FOR DIALYSIS AND 22G IV TO RIGHT WRIST. PT AMBULATES WITH ASSIST, BUT OVERESTIMATES ABILITY, BED ALARM ON. PT SKIN IS INTACT. VS WNL. PT IN STABLE CPNDITION, NO SIGNS OF DISTRESS NOTED. BED IN LOWEST POSITION, CALL LIGHT WITHIN REACH. WILL CONTINUE TO MONITOR.
[2017-11-16] MEDS: INSULIN LANTUS 100 UNITS/ML 10 ML VIAL SUBQ SCH (20:38)
--- NOTE | 2017-11-16 20:45 | NUR ---
ADMINISTERED SCHEDULED MEDICATIONS, PT TOLERATED WELL. PT BLOOD SUGAR 184, COVERED WITH 2 UNITS SLIDING SCALE HUMALOG INSULIN. PT IN STABLE CONDITION, NO SIGNS OF DISTRESS NOTED. BED IN LOWEST POSITION, CALL LIGHT WITHIN REACH. WILL CONTINUE TO MONITOR.
--- NOTE | 2017-11-16 22:35 | NUR ---
PT CONFUSED, DOESN'T KNOW WHERE SHE IS OR WHAT DAY IT IS. ORIENTED PT TO SITUATION, PLACE, AND DATE/TIME. PT VERBALIZED UNDERSTANDING AND REPEATED INFORMATION BACK.
[2017-11-17] VITALS: BP_SYST 115; BP_SYST 143; BP_DIAS 58; BP_DIAS 72
--- NOTE | 2017-11-17 | NUR ---
VITAL SIGNS WNL. PT IN STABLE CONDITION, NO SIGNS OF DISTRESS NOTED. BED IN LOWEST POSITION, CALL LIGHT WITHIN REACH. WILL CONTINUE TO MONITOR.
--- NOTE | 2017-11-17 03:35 | NUR ---
PT IN STABLE CONDITION, NO SIGNS OF DISTRESS NOTED. BED IN LOWEST POSITION, CALL LIGHT WITHIN REACH. WILL CONTINUE TO MONITOR.
[2017-11-17] MEDS: BLOOD GLUCOSE MONITORING 1 DEV DEV FS SCH ×3 (06:30→16:42)
[2017-11-17 06:33] LABS: BASOPHILS # (AUTO) 0.1 K/uL (0.00-0.22); BASOPHILS % (AUTO) 1.1 % (0.0-2.0); EOSINOPHILS # (AUTO) 0.1 K/uL (0-0.4); EOSINOPHILS % (AUTO) 0.9 % (0.0-4.0); HEMATOCRIT 35.8 % (36-48); HEMOGLOBIN 12.1 g/dL (12.0-16.0); LYMPHOCYTES # (AUTO) 0.6 K/uL (2.5-16.5); LYMPHOCYTES % (AUTO) 7.1 % (20.5-51.1); MEAN CORPUSCULAR HEMOGLOBIN 32 pg (27-31); MEAN CORPUSCULAR HGB CONC 34 g/dL (33-37); MEAN CORPUSCULAR VOLUME 95 fL (80-94); MONOCYTES # (AUTO) 0.4 K/uL (0.8-1.0); MONOCYTES % (AUTO) 5.3 % (1.7-9.3); NEUTROPHILS # (AUTO) 6.7 K/uL (1.8-7.7); NEUTROPHILS % (AUTO) 85.6 % (42.2-75.2); PLATELET COUNT (AUTO) 144 K/uL (140-450); RED BLOOD CELL COUNT(AUTO) 3.77 MIL/uL (4.20-5.40); RED CELL DISTRIBUTION WIDTH 15.4 % (11.6-13.7); WHITE BLOOD COUNT (AUTO) 7.9 K/uL (4.8-10.8)
[2017-11-17] MEDS: LEVOTHYROXINE 0.088 MG TAB PO SCH (06:43)
--- NOTE | 2017-11-17 06:45 | NUR ---
ADMINISTERED SCHEDULED MEDICATION, PT TOLERATED WELL. PT IN STABLE CONDITION, NO SIGNS OF DISTRESS NOTED. BED IN LOWEST POSITION, CALL LIGHT WITHIN REACH. WILL CONTINUE TO MONITOR.
--- NOTE | 2017-11-17 07:20 | NUR ---
ENDORSED PT TO DAY SHIFT RN IN STABLE CONDITION FOR CONTINUITY OF CARE.
--- NOTE | 2017-11-17 07:25 | NUR ---
RECEIVED REPORT FROM NICHOLAS MCARTHUR, PT IS SLEEPING IN BED AT THIS TIME BUT EASILY AWAKEN, PT IS AAOX4, EPISODES OF FORGETFULNESS, PT HAS IV ON HER WRIST WRIST, PATENT, INTACT, FLUSHING WELL, NO S/S OF RESPIRATORY DISTRESS OR DISCOMFORT NOTED, DISCUSSED PLAN OF CARE WITH PT, PT VERBALIZED UNDERSTANDING, SAFETY/FALL PRECAUTIONS ARE IN PLACE, CALL LIGHT IS WITHIN REACH, WILL CONTINUE TO MONITOR.
[2017-11-17 07:27] LABS: ANION GAP 15.7 (8-16); CARBON DIOXIDE 26.4 mmol/L (21-32); CHLORIDE 100 mmol/L (98-107); GLUCOSE 114 mg/dL (74-106); POTASSIUM 4.1 mmol/L (3.5-5.1); SODIUM SERUM 138 mmol/L (136-145); UREA NITROGEN, BLOOD 22 mg/dL (7-18)
[2017-11-17 07:29] LABS: CREATININE 4.1 mg/dL (0.6-1.3)
[2017-11-17 08:00] VITALS: BP 157/71
[2017-11-17] MEDS: CALCIUM ACETATE 667 MG TAB PO SCH ×2 (08:12→12:14)
[2017-11-17] MEDS: SIMVASTATIN 20 MG TAB PO SCH (08:12)
[2017-11-17] MEDS: ISOSORBIDE DINITRATE 10 MG TAB PO SCH (08:12)
[2017-11-17] MEDS: LACTOBACILLUS RHAMNOSUS GG 1 EACH CAP PO SCH (08:12)
[2017-11-17] MEDS: ASCORBIC ACID 500 MG TAB PO SCH (08:13)
[2017-11-17] MEDS: CARVEDILOL 3.125 MG TAB PO SCH (08:13)
[2017-11-17] MEDS: ECOTRIN 81 MG TABEC PO SCH (08:13)
[2017-11-17] MEDS: ESCITALOPRAM 20 MG TAB PO SCH (08:13)
--- NOTE | 2017-11-17 08:13 | NUR ---
DUE MEDICATION GIVEN, PT TOLERATED WELL, CALL LIGHT WITHIN REACH, SAFETY/FALL PRECAUTIONS ARE IN PLACE.
[2017-11-17] MEDS: DONEPEZIL 10 MG TAB PO SCH (08:14)
[2017-11-17] MEDS ORDERED: LACTULOSE 20 GM/30 ML UDC PO SCH (09:00)
--- NOTE | 2017-11-17 10:00 | NUR ---
PATIENT AMBULATING AROUND THE NURSES STATION WITH PHYSICAL THERAPY.
[2017-11-17] MEDS ORDERED: PRAV40TA1 PO (10:31)
[2017-11-17] MEDS ORDERED: PHO667 PO (10:31)
[2017-11-17] MEDS ORDERED: CARV3.12 PO (10:31)
[2017-11-17] MEDS ORDERED: INSU100S45 SUBQ (10:31)
[2017-11-17] MEDS ORDERED: PRIM250T70 PO (10:31)
[2017-11-17] MEDS ORDERED: INSU300S SQ (10:31)
[2017-11-17] MEDS ORDERED: BRIM5SOL2 BOTH EYES (10:31)
[2017-11-17] MEDS ORDERED: DONE5TAB6 PO (10:31)
[2017-11-17] MEDS ORDERED: LEVO0.083 PO (10:31)
[2017-11-17] MEDS ORDERED: ASCO500T45 PO (10:31)
[2017-11-17] MEDS ORDERED: ASPI81EC30 PO (10:31)
[2017-11-17] MEDS ORDERED: SLIDE SUBQ (10:31)
[2017-11-17] MEDS ORDERED: ISOS10TA9 PO (10:31)
[2017-11-17] MEDS ORDERED: LANTUS SUBQ (10:31)
[2017-11-17] MEDS ORDERED: FERR-193 PO (10:31)
[2017-11-17] MEDS ORDERED: ESCI10TA PO (10:31)
[2017-11-17] MEDS: INSULIN LISPRO SLIDING SCALE 100 UNITS/ML VIAL SUBQ PRN (12:16)
--- NOTE | 2017-11-17 12:27 | NUR ---
I CALLED THE PATIENT'S DAUGHTER FERNANDA AT [phone], I LET HER KNOW I HAD RECEIVED A PHONE CALL FROM HER SISTER BLUE TODAY AND BLUE ASKED ME TO NOTIFY HER WHEN SHE WAS READY TO BE DISCHARGED. FERNANDA SAID SHE WOULD COME AND PICK HER UP AROUND 1630, ONCE SHE GOT OFF WORK.
--- NOTE | 2017-11-17 13:37 | NUR ---
PT SITTING UP IN BED, HIGH FOWLERS POSITION, WATCHING TV AND EATING LUNCH. CALL LIGHT WITHIN REACH.
--- NOTE | 2017-11-17 15:09 | NUR ---
CALLED THE PATIENT'S DAUGHTER, FERNANDA, I LET HER KNOW THE PATIENT DID NOT HAVE ANY CLOTHES WITH HER. FERNANDA SAID SHE WOULD HAVE HER DROP CLOTHES OFF OR SHE WOULD BRING THEM WITH HER ONCE SHE PICKED UP THE PATIENT.
[2017-11-17 16:00] VITALS: BP 145/69
[2017-11-17] MEDS: NACL 0.9% 1,000 ML IV SCH (16:15)
--- NOTE | 2017-11-17 16:44 | NUR ---
PT SITTING ON CHAIR AT BEDSIDE WATCHING TV, CALL LIGHT WITHIN REACH.
--- NOTE | 2017-11-17 17:31 | NUR ---
DISCHARGE INSTRUCTIONS GIVEN TO PATIENT AND PATIENT'S DAUGHTER FERNANDA. IV REMOVED, CATHETER TIP INTACT, ID WRIST BAND REMOVED, PT STABLE UPON DISCHARGE, ACCOMPANIED BY HER DAUGHTER.
== END 2017-11-17 17:33 | disposition home or self-care (01) | DRG 438 ==
LOC: MED 20:43 → MTU 23:58
PROVIDERS: ADMIT Family Medicine; ATTEND Family Medicine
PROC: 5A1D70Z Performance of Urinary Filtration, Intermittent, Less than 6 Hours Per Day (ICD-10-PCS; principal; 2017-11-14)
PROC: 0DBG8ZZ Excision of Left Large Intestine, Via Natural or Artificial Opening Endoscopic (ICD-10-PCS; 2017-11-16)
PROC: 5A1D70Z Performance of Urinary Filtration, Intermittent, Less than 6 Hours Per Day (ICD-10-PCS; 2017-11-16)
PROC: 0DB68ZX Excision of Stomach, Via Natural or Artificial Opening Endoscopic, Diagnostic (ICD-10-PCS; 2017-11-16 14:00)
DX: K86.2 Cyst of pancreas (principal); I50.43 Acute on chronic combined systolic (congestive) and diastolic (congestive) heart failure; N17.0 Acute kidney failure with tubular necrosis; G93.41 Metabolic encephalopathy; I13.2 Hypertensive heart and chronic kidney disease with heart failure and with stage 5 chronic kidney disease, or end stage renal disease; K31.84 Gastroparesis; D68.59 Other primary thrombophilia; E11.22 Type 2 diabetes mellitus with diabetic chronic kidney disease; E11.43 Type 2 diabetes mellitus with diabetic autonomic (poly)neuropathy; N18.6 End stage renal disease; E11.51 Type 2 diabetes mellitus with diabetic peripheral angiopathy without gangrene; F02.81 Dementia in other diseases classified elsewhere, unspecified severity, with behavioral disturbance; E87.1 Hypo-osmolality and hyponatremia; E11.65 Type 2 diabetes mellitus with hyperglycemia; K57.90 Diverticulosis of intestine, part unspecified, without perforation or abscess without bleeding; E83.39 Other disorders of phosphorus metabolism; E83.41 Hypermagnesemia; G30.9 Alzheimer's disease, unspecified; E87.5 Hyperkalemia; E03.9 Hypothyroidism, unspecified; Z96.642 Presence of left artificial hip joint; K21.9 Gastro-esophageal reflux disease without esophagitis; K63.5 Polyp of colon; E87.8 Other disorders of electrolyte and fluid balance, not elsewhere classified; E78.2 Mixed hyperlipidemia; F32.9 Major depressive disorder, single episode, unspecified; D63.8 Anemia in other chronic diseases classified elsewhere; K44.9 Diaphragmatic hernia without obstruction or gangrene; K29.70 Gastritis, unspecified, without bleeding; K59.00 Constipation, unspecified; Z99.2 Dependence on renal dialysis; Z79.4 Long term (current) use of insulin; Z79.899 Other long term (current) drug therapy; Z90.710 Acquired absence of both cervix and uterus; Z79.82 Long term (current) use of aspirin; Z83.3 Family history of diabetes mellitus; Z82.49 Family history of ischemic heart disease and other diseases of the circulatory system; Z84.1 Family history of disorders of kidney and ureter
CPT/HCPCS: 36415; 71045; 76770; 80048; 80053; 81001; 82150; 82948; 83036; 83605; 83690; 83735; 83880; 84100; 84439; 84443; 84484; 85025; 85610; 85730; 86301; 86677; 87040; 87081; 87086; 88305; 90935; 93925; 93970; 96361; 96374; 97110; 97116; 97140; 97530; 99285; C1758; J1200; J1815; J1956; J2250; J2405; J3010; J3490; J7030; Q0092; Q9967

== ENCOUNTER 2018-01-09 20:48 | Emergency (ER) | payer OTHER, BC ==
[~2018-01-09] VITALS: Ht 154.9 cm; Wt 51.7 kg
[~2018-01-09 20:48] MED LIST changes: +FERR-15 PO; -FERR-193 PO; -INSU300S SC; +INSU300S SQ
[2018-01-09 21:05] VITALS: BP 122/60
--- NOTE | 2018-01-09 21:11 | NUR ---
to lobby a/w bed, amb, stable , ermd noted
--- NOTE | 2018-01-09 22:04 | NUR ---
PT W/C ASSISTED TO BED 3
--- NOTE | 2018-01-09 22:07 | NUR ---
77 y/o f bib daughter w/c/o lower back pain x 3 days. pt denies any n/v, pain/frequent urination. or fever. med hx on chronic renal failure, htn, high cholesterol, and dementia. denies any chest pain or sob. states took tramadol 50 mg at 1700 today. no other s/s of distress noted. er md made aware.
--- NOTE | 2018-01-09 23:07 | NUR ---
X-Ray at bedside.
[2018-01-09 23:28] LABS: BASOPHILS # (AUTO) 0.1 K/uL (0.00-0.22); BASOPHILS % (AUTO) 1.7 % (0.0-2.0); EOSINOPHILS # (AUTO) 0.2 K/uL (0-0.4); HEMATOCRIT 35.1 % (36-48); HEMOGLOBIN 11.4 g/dL (12.0-16.0); LYMPHOCYTES # (AUTO) 0.8 K/uL (2.5-16.5); LYMPHOCYTES % (AUTO) 15.3 % (20.5-51.1); MEAN CORPUSCULAR HEMOGLOBIN 31 pg (27-31); MEAN CORPUSCULAR HGB CONC 33 g/dL (33-37); MEAN CORPUSCULAR VOLUME 96.3 fL (80-94); MONOCYTES # (AUTO) 0.6 K/uL (0.8-1.0); MONOCYTES % (AUTO) 10.7 % (1.7-9.3); NEUTROPHILS # (AUTO) 3.6 K/uL (1.8-7.7); NEUTROPHILS % (AUTO) 69.3 % (42.2-75.2); PLATELET COUNT (AUTO) 174 K/uL (140-450); RED BLOOD CELL COUNT(AUTO) 3.65 MIL/uL (4.20-5.40); RED CELL DISTRIBUTION WIDTH 14.3 % (11.6-13.7); WHITE BLOOD COUNT (AUTO) 5.3 K/uL (4.8-10.8)
[2018-01-09 23:34] LABS: CARBON DIOXIDE 37.2 mmol/L (21-32); CHLORIDE 98 mmol/L (98-107); CREATININE 3.2 mg/dL (0.6-1.3); GLUCOSE 174 mg/dL (74-106); POTASSIUM 4.2 mmol/L (3.5-5.1); SODIUM SERUM 142 mmol/L (136-145); UREA NITROGEN, BLOOD 32 mg/dL (7-18)
--- NOTE | 2018-01-09 23:35 | NUR ---
Pelvic exam performed by DR NO with ME at bedside for entire examination. Patient tolerated procedure WELL. Patient assisted to position of comfort after examination.
[2018-01-09 23:37] LABS: LIPASE 206 U/L (73-393)
[2018-01-09] MEDS ORDERED: MORPHINE SULFATE 4 MG/ML SYR IVP ONE (23:40)
[2018-01-09 23:44] LABS: APPEARANCE,URINE CLEAR (CLEAR); BILIRUBIN,URINE NEGATIVE (NEGATIVE); BLOOD, URINE NEGATIVE (NEGATIVE); COLOR,URINE YELLOW (YELLOW); LEUKOCYTE ESTERASE ,URINE NEGATIVE (NEGATIVE); NITRITE, URINE NEGATIVE (NEGATIVE); PH,URINE 7.5 (5.0-9.0); UGLUCOSE NEGATIVE (NEGATIVE)
[2018-01-09 23:45] LABS: PROTHROMBIN TIME 11.3 secs (10.8-13.4)
[2018-01-09 23:47] LABS: ALBUMIN 3.3 g/dL (3.4-5.0); ASPARTATE AMINOTRANSFERASE 13 U/L (15-37); TOTAL BILIRUBIN 0.3 mg/dL (0.0-1.0)
[2018-01-10] MEDS ORDERED: POTASSIUM CHLORIDE 10 MEQ TABER PO ONE (00:25)
[2018-01-10 01:29] LABS: RBC,URINE 0-5 (RARE) /HPF (0-5); WBC,URINE 0-5 (RARE) /HPF (0-5)
--- NOTE | 2018-01-10 02:15 | NUR ---
PT TAKEN TO CT
--- NOTE | 2018-01-10 02:56 | NUR ---
PT RESTING IN BED, DAUGHTER REMAINS AT BEDSIDE. VSS, STATES HER PAIN IS COMING BACK. ER MD MADE AWARE.
[2018-01-10 04:41] VITALS: BP 153/99
--- NOTE | 2018-01-11 15:08 | NUR ---
URINE CLULTURE RESULTS RETURNED NEGATIVE NO FURTHER FOLLOW UP NEEDED.
== END 2018-01-10 04:41 | disposition home or self-care (01) ==
LOC: MED 20:58
DX: S32.059A Unspecified fracture of fifth lumbar vertebra, initial encounter for closed fracture (principal); E11.9 Type 2 diabetes mellitus without complications; K21.9 Gastro-esophageal reflux disease without esophagitis; I10 Essential (primary) hypertension; F03.90 Unspecified dementia, unspecified severity, without behavioral disturbance, psychotic disturbance, mood disturbance, and anxiety; R94.31 Abnormal electrocardiogram [ECG] [EKG]; Z79.4 Long term (current) use of insulin; Z79.899 Other long term (current) drug therapy; W19.XXXA Unspecified fall, initial encounter; Y93.89 Activity, other specified; Y92.89 Other specified places as the place of occurrence of the external cause; Y99.8 Other external cause status
CPT/HCPCS: 36415; 71045; 71250; 74176; 80053; 81001; 82550; 83605; 83690; 83880; 84484; 85025; 85610; 85730; 87040; 87086; 93005; 96374; 99285; C1758; J2270; 82553

== ENCOUNTER 2018-04-09 12:35 | Emergency (ER) | payer OTHER, BC ==
[~2018-04-09] VITALS: Ht 152.4 cm; Wt 59.0 kg
[2018-04-09 12:39] VITALS: BP 156/50
[2018-04-09] MEDS ORDERED: ALBUTEROL SULFATE/IPRATROPIU 3 ML SOL IH ONE (13:15)
[2018-04-09] MEDS ORDERED: FUROSEMIDE 20 MG/2 ML VIAL IVP ONE (13:15)
[2018-04-09 14:01] LABS: BASOPHILS % (AUTO) 0.3 % (0.0-2.0); EOSINOPHILS # (AUTO) 0.1 K/uL (0-0.4); EOSINOPHILS % (AUTO) 1.6 % (0.0-4.0); HEMATOCRIT 30.4 % (36-48); LYMPHOCYTES # (AUTO) 0.4 K/uL (2.5-16.5); LYMPHOCYTES % (AUTO) 5.3 % (20.5-51.1); MEAN CORPUSCULAR HEMOGLOBIN 31 pg (27-31); MEAN CORPUSCULAR HGB CONC 33 g/dL (33-37); MEAN CORPUSCULAR VOLUME 94.6 fL (80-94); MONOCYTES # (AUTO) 0.5 K/uL (0.8-1.0); MONOCYTES % (AUTO) 6.9 % (1.7-9.3); NEUTROPHILS # (AUTO) 6.8 K/uL (1.8-7.7); NEUTROPHILS % (AUTO) 85.9 % (42.2-75.2); PLATELET COUNT (AUTO) 124 K/uL (140-450); RED BLOOD CELL COUNT(AUTO) 3.22 MIL/uL (4.20-5.40); RED CELL DISTRIBUTION WIDTH 17.6 % (11.6-13.7)
[2018-04-09 14:24] LABS: PROTHROMBIN TIME 11.6 secs (10.8-13.4)
[2018-04-09 14:29] LABS: ANION GAP 11.1 (8-16); CARBON DIOXIDE 30.8 mmol/L (21-32); CHLORIDE 95 mmol/L (98-107); GLUCOSE 304 mg/dL (74-106); POTASSIUM 3.9 mmol/L (3.5-5.1); SODIUM SERUM 133 mmol/L (136-145); UREA NITROGEN, BLOOD 36 mg/dL (7-18)
[2018-04-09 14:34] LABS: ASPARTATE AMINOTRANSFERASE 6 U/L (15-37); TOTAL BILIRUBIN 0.5 mg/dL (0.0-1.0)
[2018-04-09 14:35] LABS: CREATININE 5.2 mg/dL (0.6-1.3)
[2018-04-09 15:47] VITALS: BP 159/61
== END 2018-04-09 15:48 | disposition home or self-care (01) ==
LOC: MED 12:35
DX: R07.89 Other chest pain (principal); J90 Pleural effusion, not elsewhere classified; K21.9 Gastro-esophageal reflux disease without esophagitis; I50.9 Heart failure, unspecified; E11.9 Type 2 diabetes mellitus without complications; F03.90 Unspecified dementia, unspecified severity, without behavioral disturbance, psychotic disturbance, mood disturbance, and anxiety; I10 Essential (primary) hypertension; Z99.2 Dependence on renal dialysis; Z79.899 Other long term (current) drug therapy
CPT/HCPCS: 36415; 71045; 80053; 83880; 84484; 85025; 85610; 85730; 93005; 94640; 94760; 96374; 99285; J1940; J7620

== ENCOUNTER 2018-07-04 12:56 | Inpatient (IN) | payer OTHER, BC ==
[~2018-07-04] VITALS: Ht 160 cm; Wt 51.7 kg
[2018-07-04 12:59] VITALS: BP 142/71
[2018-07-04] MEDS ORDERED: LORazepam 2 MG/ML VIAL IVP ONE (13:50)
[2018-07-04 14:19] LABS: BASOPHILS # (AUTO) 0.1 K/uL (0.00-0.22); BASOPHILS % (AUTO) 0.8 % (0.0-2.0); EOSINOPHILS # (AUTO) 0.1 K/uL (0-0.4); EOSINOPHILS % (AUTO) 1.8 % (0.0-4.0); HEMATOCRIT 37.7 % (36-48); HEMOGLOBIN 12.4 g/dL (12.0-16.0); LYMPHOCYTES # (AUTO) 0.9 K/uL (2.5-16.5); LYMPHOCYTES % (AUTO) 11.8 % (20.5-51.1); MEAN CORPUSCULAR HEMOGLOBIN 30 pg (27-31); MEAN CORPUSCULAR HGB CONC 33 g/dL (33-37); MEAN CORPUSCULAR VOLUME 92.5 fL (80-94); MONOCYTES # (AUTO) 0.6 K/uL (0.8-1.0); MONOCYTES % (AUTO) 8.8 % (1.7-9.3); NEUTROPHILS # (AUTO) 5.6 K/uL (1.8-7.7); NEUTROPHILS % (AUTO) 76.8 % (42.2-75.2); PLATELET COUNT (AUTO) 176 K/uL (140-450); RED BLOOD CELL COUNT(AUTO) 4.08 MIL/uL (4.20-5.40); RED CELL DISTRIBUTION WIDTH 16.3 % (11.6-13.7); WHITE BLOOD COUNT (AUTO) 7.4 K/uL (4.8-10.8)
[2018-07-04 14:31] LABS: PROTHROMBIN TIME 10.5 secs (10.8-13.4)
[2018-07-04 14:32] LABS: ANION GAP 8.3 (8-16); CARBON DIOXIDE 35.3 mmol/L (21-32); CHLORIDE 101 mmol/L (98-107); CREATININE 2.8 mg/dL (0.6-1.3); GLUCOSE 97 mg/dL (74-106); POTASSIUM 3.6 mmol/L (3.5-5.1); SODIUM SERUM 141 mmol/L (136-145); UREA NITROGEN, BLOOD 17 mg/dL (7-18)
[2018-07-04 14:36] LABS: ALBUMIN 3.6 g/dL (3.4-5.0); ASPARTATE AMINOTRANSFERASE 10 U/L (15-37); TOTAL BILIRUBIN 0.7 mg/dL (0.0-1.0)
[2018-07-04 15:44] LABS: BILIRUBIN,URINE NEGATIVE (NEGATIVE); BLOOD, URINE NEGATIVE (NEGATIVE); COLOR,URINE YELLOW (YELLOW); LEUKOCYTE ESTERASE ,URINE NEGATIVE (NEGATIVE); NITRITE, URINE NEGATIVE (NEGATIVE); PH,URINE 8.5 (5.0-9.0); UGLUCOSE NEGATIVE (NEGATIVE)
[2018-07-04 15:45] LABS: APPEARANCE,URINE HAZY (CLEAR)
[2018-07-04 16:05] LABS: RBC,URINE 3-10 (FEW) /HPF (0-5); URINE AMORPHOUS URATE 1+ /HPF (None Seen); WBC,URINE 6-15 (FEW) /HPF (0-5)
[2018-07-04] MEDS ORDERED: cefTRIAXone 1,000 MG VIAL ONE (16:46)
[2018-07-04] MEDS ORDERED: DEXTROSE 50% 50 ML SYR IVP ONE (16:55)
[2018-07-04] MEDS ORDERED: traMADol 50 MG TAB PO PRN (17:25)
[2018-07-04] MEDS ORDERED: DOCUSATE SODIUM 100 MG GELCAP PO PRN (17:25)
[2018-07-04] MEDS ORDERED: ONDANSETRON 4 MG/2 ML VIAL IM/IVP PRN (17:25)
[2018-07-04] MEDS ORDERED: BISACODYL 5 MG TABEC PO PRN (17:25)
[2018-07-04] MEDS ORDERED: LORazepam 2 MG/ML VIAL IM/IVP PRN (17:25)
[2018-07-04] MEDS ORDERED: ACETAMINOPHEN 325 MG TAB PO PRN (17:25)
[2018-07-04] MEDS ORDERED: ZOLPIDEM 5 MG TAB PO PRN (17:25)
[2018-07-04 17:35] VITALS: BP 165/76
[2018-07-04] MEDS ORDERED: DEXTROSE 50% 50 ML SYR IVP PRN (17:35)
[2018-07-04] MEDS ORDERED: hydrALAZINE 20 MG/ML VIAL IVP PRN (17:35)
[2018-07-04] MEDS ORDERED: PRIMIDONE 250 MG TAB PO PRN (17:35)
[2018-07-04] MEDS ORDERED: AMLO-27 PO (17:37)
[2018-07-04 18:05] LABS: CHOL/HDL RATIO 3.6 (1-4.5); MAGNESIUM 1.9 mg/dL (1.8-2.4); PHOSPHORUS 1.9 mg/dL (2.5-4.9); THYROID STIMULATING HORMONE 2.24 uIU/mL (0.34-3.74)
[2018-07-04 20:00] VITALS: BP 169/74
[2018-07-04] MEDS ORDERED: TIMOLOL BOTH EYES SCH (21:00)
[2018-07-04] MEDS ORDERED: BRIMONIDINE TARTRATE BOTH EYES SCH (21:00)
[2018-07-04] MEDS: BLOOD GLUCOSE MONITORING 1 DEV DEV FS SCH (21:22)
[2018-07-04] MEDS: ISOSORBIDE DINITRATE 10 MG TAB PO SCH (21:24)
[2018-07-05] VITALS: BP 150/61
[2018-07-05] MEDS ORDERED: BLOOD GLUCOSE MONITORING 1 DEV DEV FS SCH ×2 (00:20→07:30)
[2018-07-05 04:00] VITALS: BP 160/52
[2018-07-05] MEDS: PANTOPRAZOLE 40 MG TABEC PO SCH (06:54)
[2018-07-05] MEDS: LEVOTHYROXINE 0.088 MG TAB PO SCH (06:54)
[2018-07-05] MEDS: BLOOD GLUCOSE MONITORING 1 DEV DEV FS SCH ×4 (06:56→19:57)
[2018-07-05] MEDS: FERROUS SULFATE 325 MG TABEC PO SCH ×2 (07:55→08:39)
[2018-07-05 07:57] LABS: ANION GAP 8.8 (8-16); CARBON DIOXIDE 33.7 mmol/L (21-32); CHLORIDE 102 mmol/L (98-107); CREATININE 3.6 mg/dL (0.6-1.3); GLUCOSE 86 mg/dL (74-106); POTASSIUM 3.5 mmol/L (3.5-5.1); SODIUM SERUM 141 mmol/L (136-145); UREA NITROGEN, BLOOD 24 mg/dL (7-18)
[2018-07-05 08:00] VITALS: BP 144/61
[2018-07-05] MEDS ORDERED: CALCIUM ACETATE 667 MG TAB PO SCH (08:00)
[2018-07-05 08:02] LABS: PHOSPHORUS 3.1 mg/dL (2.5-4.9)
[2018-07-05 08:03] LABS: BASOPHILS % (AUTO) 0.4 % (0.0-2.0); EOSINOPHILS # (AUTO) 0.1 K/uL (0-0.4); EOSINOPHILS % (AUTO) 1.9 % (0.0-4.0); HEMATOCRIT 35.7 % (36-48); HEMOGLOBIN 11.6 g/dL (12.0-16.0); LYMPHOCYTES # (AUTO) 0.8 K/uL (2.5-16.5); LYMPHOCYTES % (AUTO) 14.9 % (20.5-51.1); MEAN CORPUSCULAR HEMOGLOBIN 30 pg (27-31); MEAN CORPUSCULAR HGB CONC 32 g/dL (33-37); MEAN CORPUSCULAR VOLUME 93.3 fL (80-94); MONOCYTES # (AUTO) 0.6 K/uL (0.8-1.0); MONOCYTES % (AUTO) 10.6 % (1.7-9.3); NEUTROPHILS # (AUTO) 4.1 K/uL (1.8-7.7); NEUTROPHILS % (AUTO) 72.2 % (42.2-75.2); PLATELET COUNT (AUTO) 152 K/uL (140-450); RED BLOOD CELL COUNT(AUTO) 3.83 MIL/uL (4.20-5.40); RED CELL DISTRIBUTION WIDTH 16.3 % (11.6-13.7); WHITE BLOOD COUNT (AUTO) 5.7 K/uL (4.8-10.8)
[2018-07-05] MEDS: DONEPEZIL 10 MG TAB PO SCH (08:39)
[2018-07-05] MEDS: LACTOBACILLUS RHAMNOSUS GG 1 EACH CAP PO SCH (08:39)
[2018-07-05] MEDS: PRIMIDONE 50 MG TAB PO SCH (08:40)
[2018-07-05] MEDS: ISOSORBIDE DINITRATE 10 MG TAB PO SCH ×3 (08:40→20:22)
[2018-07-05] MEDS: VIT-B COMP/VIT-C/FOLIC ACID 1 TAB PO SCH (08:40)
[2018-07-05] MEDS: amLODIPine 5 MG TAB PO SCH (08:41)
[2018-07-05] MEDS: ASPIRIN 81 MG TAB.CHEW PO SCH (08:41)
[2018-07-05] MEDS: ASCORBIC ACID 500 MG TAB PO SCH (08:41)
[2018-07-05] MEDS: ATORVASTATIN 20 MG TAB PO SCH (08:41)
[2018-07-05] MEDS: ESCITALOPRAM 20 MG TAB PO SCH (08:41)
[2018-07-05] MEDS: BRIMONIDINE TARTRATE 0.2% OP 5 ML BTL BOTH EYES SCH ×2 (10:04→20:14)
[2018-07-05] MEDS: TIMOLOL OP 0.5% 5 ML BTL BOTH EYES SCH ×2 (10:04→20:14)
[2018-07-05] MEDS: INSULIN LISPRO SLIDING SCALE 100 UNITS/ML VIAL SUBQ PRN ×3 (11:51→20:15)
[2018-07-05 12:00] VITALS: BP 125/68
[2018-07-05] MEDS ORDERED: HEPARIN PER PHARMACY MC PRN (13:30)
[2018-07-05] MEDS ORDERED: hePARIN / DEXT 5% PREMIX 250 ML IV SCH (13:30)
[2018-07-05] MEDS: hePARIN / DEXT 5% PREMIX 250 ML IV SCH (15:27)
[2018-07-05 16:00] VITALS: BP 125/57
[2018-07-05 20:00] VITALS: BP 111/42
[2018-07-06] VITALS (7 sets, daily range): BP systolic 117–139; BP diastolic 34–54
[2018-07-06] MEDS: hePARIN / DEXT 5% PREMIX 250 ML IV SCH ×2 (00:45→09:43)
[2018-07-06] MEDS: LEVOTHYROXINE 0.088 MG TAB PO SCH (05:44)
[2018-07-06] MEDS: BLOOD GLUCOSE MONITORING 1 DEV DEV FS SCH ×4 (05:46→20:33)
[2018-07-06] MEDS: PANTOPRAZOLE 40 MG TABEC PO SCH (06:46)
[2018-07-06 07:29] LABS: BASOPHILS # (AUTO) 0.1 K/uL (0.00-0.22); BASOPHILS % (AUTO) 0.9 % (0.0-2.0); EOSINOPHILS # (AUTO) 0.1 K/uL (0-0.4); EOSINOPHILS % (AUTO) 2.5 % (0.0-4.0); HEMATOCRIT 36.7 % (36-48); HEMOGLOBIN 11.9 g/dL (12.0-16.0); LYMPHOCYTES % (AUTO) 18.5 % (20.5-51.1); MEAN CORPUSCULAR HEMOGLOBIN 30 pg (27-31); MEAN CORPUSCULAR HGB CONC 32 g/dL (33-37); MEAN CORPUSCULAR VOLUME 93.5 fL (80-94); MONOCYTES # (AUTO) 0.4 K/uL (0.8-1.0); MONOCYTES % (AUTO) 7.3 % (1.7-9.3); NEUTROPHILS % (AUTO) 70.8 % (42.2-75.2); PLATELET COUNT (AUTO) 180 K/uL (140-450); RED BLOOD CELL COUNT(AUTO) 3.92 MIL/uL (4.20-5.40); RED CELL DISTRIBUTION WIDTH 16.2 % (11.6-13.7); WHITE BLOOD COUNT (AUTO) 5.6 K/uL (4.8-10.8)
[2018-07-06 07:48] LABS: ANION GAP 10.8 (8-16); CARBON DIOXIDE 31.6 mmol/L (21-32); CHLORIDE 95 mmol/L (98-107); GLUCOSE 145 mg/dL (74-106); POTASSIUM 4.4 mmol/L (3.5-5.1); SODIUM SERUM 133 mmol/L (136-145); UREA NITROGEN, BLOOD 36 mg/dL (7-18)
[2018-07-06 07:54] LABS: CREATININE 4.8 mg/dL (0.6-1.3)
[2018-07-06 08:03] LABS: PHOSPHORUS 4.2 mg/dL (2.5-4.9)
[2018-07-06] MEDS: FERROUS SULFATE 325 MG TABEC PO SCH ×2 (08:51→17:20)
[2018-07-06] MEDS: BRIMONIDINE TARTRATE 0.2% OP 5 ML BTL BOTH EYES SCH ×2 (08:51→20:21)
[2018-07-06] MEDS: TIMOLOL OP 0.5% 5 ML BTL BOTH EYES SCH ×2 (08:51→20:21)
[2018-07-06] MEDS: VIT-B COMP/VIT-C/FOLIC ACID 1 TAB PO SCH (08:52)
[2018-07-06] MEDS: PRIMIDONE 50 MG TAB PO SCH (08:52)
[2018-07-06] MEDS: DONEPEZIL 10 MG TAB PO SCH (08:53)
[2018-07-06] MEDS: ASCORBIC ACID 500 MG TAB PO SCH (08:54)
[2018-07-06] MEDS: LACTOBACILLUS RHAMNOSUS GG 1 EACH CAP PO SCH (08:54)
[2018-07-06] MEDS: ATORVASTATIN 20 MG TAB PO SCH (08:54)
[2018-07-06] MEDS: ESCITALOPRAM 20 MG TAB PO SCH (08:54)
[2018-07-06] MEDS: amLODIPine 5 MG TAB PO SCH (08:55)
[2018-07-06] MEDS: ISOSORBIDE DINITRATE 10 MG TAB PO SCH ×2 (08:55→20:29)
[2018-07-06] MEDS: ASPIRIN 81 MG TAB.CHEW PO SCH (08:55)
[2018-07-06] MEDS: INSULIN LANTUS 100 UNITS/ML 10 ML VIAL SUBQ SCH (08:56)
[2018-07-06] MEDS: INSULIN LISPRO SLIDING SCALE 100 UNITS/ML VIAL SUBQ PRN ×3 (11:48→20:28)
[2018-07-07] VITALS: BP 131/40
[2018-07-07 04:00] VITALS: BP 136/50
[2018-07-07] MEDS: LEVOTHYROXINE 0.088 MG TAB PO SCH (05:42)
[2018-07-07] MEDS: PANTOPRAZOLE 40 MG TABEC PO SCH (06:37)
[2018-07-07] MEDS: BLOOD GLUCOSE MONITORING 1 DEV DEV FS SCH ×4 (06:39→21:33)
[2018-07-07 07:26] LABS: BASOPHILS # (AUTO) 0.1 K/uL (0.00-0.22); EOSINOPHILS # (AUTO) 0.2 K/uL (0-0.4); EOSINOPHILS % (AUTO) 3.6 % (0.0-4.0); HEMATOCRIT 30.9 % (36-48); LYMPHOCYTES # (AUTO) 0.8 K/uL (2.5-16.5); LYMPHOCYTES % (AUTO) 15.1 % (20.5-51.1); MEAN CORPUSCULAR HEMOGLOBIN 31 pg (27-31); MEAN CORPUSCULAR HGB CONC 32 g/dL (33-37); MEAN CORPUSCULAR VOLUME 93.9 fL (80-94); MONOCYTES # (AUTO) 0.6 K/uL (0.8-1.0); MONOCYTES % (AUTO) 11.1 % (1.7-9.3); NEUTROPHILS # (AUTO) 3.7 K/uL (1.8-7.7); NEUTROPHILS % (AUTO) 69.2 % (42.2-75.2); PLATELET COUNT (AUTO) 154 K/uL (140-450); RED BLOOD CELL COUNT(AUTO) 3.29 MIL/uL (4.20-5.40); WHITE BLOOD COUNT (AUTO) 5.3 K/uL (4.8-10.8)
[2018-07-07 07:37] LABS: ANION GAP 10.2 (8-16); CARBON DIOXIDE 31.2 mmol/L (21-32); CHLORIDE 98 mmol/L (98-107); CREATININE 3.3 mg/dL (0.6-1.3); GLUCOSE 112 mg/dL (74-106); POTASSIUM 4.4 mmol/L (3.5-5.1); SODIUM SERUM 135 mmol/L (136-145); UREA NITROGEN, BLOOD 20 mg/dL (7-18)
[2018-07-07 07:44] LABS: MAGNESIUM 1.7 mg/dL (1.8-2.4); PHOSPHORUS 3.9 mg/dL (2.5-4.9)
[2018-07-07 08:00] VITALS: BP 151/47
[2018-07-07] MEDS: PRIMIDONE 50 MG TAB PO SCH (08:18)
[2018-07-07] MEDS: ATORVASTATIN 20 MG TAB PO SCH (08:18)
[2018-07-07] MEDS: LACTOBACILLUS RHAMNOSUS GG 1 EACH CAP PO SCH (08:18)
[2018-07-07] MEDS: FERROUS SULFATE 325 MG TABEC PO SCH ×2 (08:18→17:24)
[2018-07-07] MEDS: DONEPEZIL 10 MG TAB PO SCH (08:19)
[2018-07-07] MEDS: VIT-B COMP/VIT-C/FOLIC ACID 1 TAB PO SCH (08:19)
[2018-07-07] MEDS: ESCITALOPRAM 20 MG TAB PO SCH (08:19)
[2018-07-07] MEDS: ASCORBIC ACID 500 MG TAB PO SCH (08:19)
[2018-07-07] MEDS: BRIMONIDINE TARTRATE 0.2% OP 5 ML BTL BOTH EYES SCH ×2 (08:20→20:26)
[2018-07-07] MEDS: ASPIRIN 81 MG TAB.CHEW PO SCH (08:20)
[2018-07-07] MEDS: amLODIPine 5 MG TAB PO SCH (08:20)
[2018-07-07] MEDS: TIMOLOL OP 0.5% 5 ML BTL BOTH EYES SCH ×2 (08:21→20:30)
[2018-07-07] MEDS: ISOSORBIDE DINITRATE 10 MG TAB PO SCH ×2 (08:21→20:31)
[2018-07-07] MEDS: INSULIN LANTUS 100 UNITS/ML 10 ML VIAL SUBQ SCH (08:35)
[2018-07-07] MEDS ORDERED: METOPROLOL SUCCINATE 50 MG TABER PO SCH (09:00)
[2018-07-07] MEDS ORDERED: MAG SULF 2000 MG/WATER PREMIX 50 ML IV SCH (11:30)
[2018-07-07 12:00] VITALS: BP 129/39
[2018-07-07] MEDS: INSULIN LISPRO SLIDING SCALE 100 UNITS/ML VIAL SUBQ PRN ×3 (12:13→21:35)
[2018-07-07 16:00] VITALS: BP 138/46
[2018-07-07 20:00] VITALS: BP 139/49
[2018-07-08] VITALS: BP 142/49
[2018-07-08 04:00] VITALS: BP 137/59
[2018-07-08] MEDS: PANTOPRAZOLE 40 MG TABEC PO SCH (06:02)
[2018-07-08] MEDS: LEVOTHYROXINE 0.088 MG TAB PO SCH (06:03)
[2018-07-08] MEDS: BLOOD GLUCOSE MONITORING 1 DEV DEV FS SCH ×2 (06:13→12:26)
[2018-07-08 07:04] LABS: BASOPHILS # (AUTO) 0.1 K/uL (0.00-0.22); BASOPHILS % (AUTO) 0.9 % (0.0-2.0); EOSINOPHILS # (AUTO) 0.2 K/uL (0-0.4); HEMATOCRIT 32.3 % (36-48); HEMOGLOBIN 10.6 g/dL (12.0-16.0); LYMPHOCYTES # (AUTO) 0.8 K/uL (2.5-16.5); MEAN CORPUSCULAR HEMOGLOBIN 31 pg (27-31); MEAN CORPUSCULAR HGB CONC 33 g/dL (33-37); MEAN CORPUSCULAR VOLUME 93.2 fL (80-94); MONOCYTES # (AUTO) 0.7 K/uL (0.8-1.0); MONOCYTES % (AUTO) 10.3 % (1.7-9.3); NEUTROPHILS # (AUTO) 4.6 K/uL (1.8-7.7); NEUTROPHILS % (AUTO) 72.8 % (42.2-75.2); PLATELET COUNT (AUTO) 173 K/uL (140-450); RED BLOOD CELL COUNT(AUTO) 3.46 MIL/uL (4.20-5.40); RED CELL DISTRIBUTION WIDTH 15.8 % (11.6-13.7); WHITE BLOOD COUNT (AUTO) 6.3 K/uL (4.8-10.8)
[2018-07-08 07:25] LABS: ANION GAP 11.6 (8-16); CARBON DIOXIDE 29.2 mmol/L (21-32); CHLORIDE 92 mmol/L (98-107); GLUCOSE 110 mg/dL (74-106); POTASSIUM 4.8 mmol/L (3.5-5.1); SODIUM SERUM 128 mmol/L (136-145)
[2018-07-08 07:29] LABS: MAGNESIUM 2.3 mg/dL (1.8-2.4); PHOSPHORUS 3.4 mg/dL (2.5-4.9)
[2018-07-08 07:55] LABS: UREA NITROGEN, BLOOD 37 mg/dL (7-18)
[2018-07-08 08:00] VITALS: BP 154/70
[2018-07-08] MEDS: amLODIPine 5 MG TAB PO SCH (09:00)
[2018-07-08 09:01] LABS: CREATININE 4.2 mg/dL (0.6-1.3)
[2018-07-08] MEDS ORDERED: cefTRIAXone 1,000 MG VIAL ONE (09:01)
[2018-07-08] MEDS: VIT-B COMP/VIT-C/FOLIC ACID 1 TAB PO SCH (09:05)
[2018-07-08] MEDS: PRIMIDONE 50 MG TAB PO SCH (09:05)
[2018-07-08] MEDS: FERROUS SULFATE 325 MG TABEC PO SCH (09:06)
[2018-07-08] MEDS: ATORVASTATIN 20 MG TAB PO SCH (09:06)
[2018-07-08] MEDS: DONEPEZIL 10 MG TAB PO SCH (09:06)
[2018-07-08] MEDS: ASCORBIC ACID 500 MG TAB PO SCH (09:06)
[2018-07-08] MEDS: LACTOBACILLUS RHAMNOSUS GG 1 EACH CAP PO SCH (09:06)
[2018-07-08] MEDS: ISOSORBIDE DINITRATE 10 MG TAB PO SCH (09:07)
[2018-07-08] MEDS: ESCITALOPRAM 20 MG TAB PO SCH (09:07)
[2018-07-08] MEDS: ASPIRIN 81 MG TAB.CHEW PO SCH (09:07)
[2018-07-08] MEDS: BRIMONIDINE TARTRATE 0.2% OP 5 ML BTL BOTH EYES SCH (09:08)
[2018-07-08] MEDS: TIMOLOL OP 0.5% 5 ML BTL BOTH EYES SCH (09:08)
[2018-07-08] MEDS: INSULIN LANTUS 100 UNITS/ML 10 ML VIAL SUBQ SCH (09:28)
[2018-07-08] MEDS ORDERED: LANTUS SUBQ (11:02)
[2018-07-08] MEDS ORDERED: NEP PO (11:02)
[2018-07-08] MEDS ORDERED: SULF-58 PO (11:02)
[2018-07-08] MEDS ORDERED: LACT10CA PO (11:02)
[2018-07-08] MEDS ORDERED: NACL 0.9% 1,000 ML IV SCH (11:40)
[2018-07-08 12:00] VITALS: BP 135/40
[2018-07-08 15:37] LABS: ANION GAP 6.9 (8-16); CARBON DIOXIDE 30.9 mmol/L (21-32); CHLORIDE 99 mmol/L (98-107); CREATININE 2.4 mg/dL (0.6-1.3); GLUCOSE 151 mg/dL (74-106); POTASSIUM 3.8 mmol/L (3.5-5.1); SODIUM SERUM 133 mmol/L (136-145); UREA NITROGEN, BLOOD 14 mg/dL (7-18)
== END 2018-07-08 16:50 | disposition home or self-care (01) | DRG 280 ==
LOC: MED 12:56 → MTU 16:44
PROVIDERS: ADMIT General Practice; ATTEND General Practice
PROC: 5A1D70Z Performance of Urinary Filtration, Intermittent, Less than 6 Hours Per Day (ICD-10-PCS; principal; 2018-07-06)
PROC: 5A1D70Z Performance of Urinary Filtration, Intermittent, Less than 6 Hours Per Day (ICD-10-PCS; 2018-07-08)
DX: I21.A1 Myocardial infarction type 2 (principal); N17.0 Acute kidney failure with tubular necrosis; G93.41 Metabolic encephalopathy; I50.43 Acute on chronic combined systolic (congestive) and diastolic (congestive) heart failure; N18.6 End stage renal disease; I13.2 Hypertensive heart and chronic kidney disease with heart failure and with stage 5 chronic kidney disease, or end stage renal disease; N39.0 Urinary tract infection, site not specified; I42.2 Other hypertrophic cardiomyopathy; N25.81 Secondary hyperparathyroidism of renal origin; G30.9 Alzheimer's disease, unspecified; F02.80 Dementia in other diseases classified elsewhere, unspecified severity, without behavioral disturbance, psychotic disturbance, mood disturbance, and anxiety; E11.65 Type 2 diabetes mellitus with hyperglycemia; E78.5 Hyperlipidemia, unspecified; E03.9 Hypothyroidism, unspecified; I16.0 Hypertensive urgency; G90.9 Disorder of the autonomic nervous system, unspecified; E83.52 Hypercalcemia; Z96.642 Presence of left artificial hip joint; M80.08XD Age-related osteoporosis with current pathological fracture, vertebra(e), subsequent encounter for fracture with routine healing; K21.9 Gastro-esophageal reflux disease without esophagitis; Z99.2 Dependence on renal dialysis; Z79.899 Other long term (current) drug therapy; Z79.4 Long term (current) use of insulin; Z90.710 Acquired absence of both cervix and uterus; Z83.3 Family history of diabetes mellitus; Z82.49 Family history of ischemic heart disease and other diseases of the circulatory system; Z84.1 Family history of disorders of kidney and ureter
CPT/HCPCS: 36415; 70450; 71045; 80048; 80053; 81001; 82140; 82948; 83036; 83605; 83690; 83735; 83880; 84100; 84134; 84443; 84484; 85025; 85610; 85730; 87040; 87081; 87086; 93005; 93880; 96374; 96375; 97110; 97116; 97530; 99285; J0696; J1644; J1815; J2060; J3475; J7030; J7060; Q0092

== ENCOUNTER 2018-11-21 12:22 | Inpatient (IN) | payer OTHER, BC ==
[~2018-11-21] VITALS: Ht 157.5 cm; Wt 54.4 kg
[2018-11-21 12:22] VITALS: BP 149/74
[~2018-11-21 12:22] MED LIST changes: +AMLO10TA4 PO; -CARV3.12 PO; -INSU300S SQ; +NEP PO; -SLIDE SUBQ
--- NOTE | 2018-11-21 12:32 | NUR ---
PT PLACED IN E AT THIS TIME TO BE CLOSE TO THE NURSES STATION TO BE MONITORED UNTIL A BED IS AVAILABLE. NOTIFIED. VSS.
--- NOTE | 2018-11-21 12:57 | NUR ---
PT TO BED 5 VIA WHEELCHAIR
--- NOTE | 2018-11-21 13:13 | NUR ---
78/ F BIB FAMILY W/ C/O WEAKNESS. PT RECEIVED DIALYSIS TODAY. AAOX4 AT THIS TIME, EVEN W/ HX DEMENTIA. PT RECEIVES DIALYSIS TUES, THURS, SAT. SHERRY SHUNT. PRODUCES SMALL AMOUNTS OF URINE. INTERMITTENT INCONTINENCE/ADULT BREIFS. PERRLA. HX DM, HTN, ESRD WITH HEMODIALYSIS
[2018-11-21 14:06] LABS: BASOPHILS % (AUTO) 0.7 % (0.0-2.0); EOSINOPHILS # (AUTO) 0.1 K/uL (0-0.4); EOSINOPHILS % (AUTO) 1.8 % (0.0-4.0); HEMATOCRIT 38.8 % (36-48); HEMOGLOBIN 12.3 g/dL (12.0-16.0); LYMPHOCYTES # (AUTO) 0.8 K/uL (2.5-16.5); LYMPHOCYTES % (AUTO) 15.2 % (20.5-51.1); MEAN CORPUSCULAR HEMOGLOBIN 29 pg (27-31); MEAN CORPUSCULAR HGB CONC 32 g/dL (33-37); MEAN CORPUSCULAR VOLUME 92.6 fL (80-94); MONOCYTES # (AUTO) 0.4 K/uL (0.8-1.0); MONOCYTES % (AUTO) 8.3 % (1.7-9.3); NEUTROPHILS # (AUTO) 3.8 K/uL (1.8-7.7); PLATELET COUNT (AUTO) 141 K/uL (140-450); RED BLOOD CELL COUNT(AUTO) 4.19 MIL/uL (4.20-5.40); RED CELL DISTRIBUTION WIDTH 15.5 % (11.6-13.7); WHITE BLOOD COUNT (AUTO) 5.2 K/uL (4.8-10.8)
[2018-11-21 14:13] LABS: ANION GAP 4.7 (8-16); CARBON DIOXIDE 37.5 mmol/L (21-32); CHLORIDE 102 mmol/L (98-107); CREATININE 2.8 mg/dL (0.6-1.3); GLUCOSE 148 mg/dL (74-106); POTASSIUM 3.2 mmol/L (3.5-5.1); SODIUM SERUM 141 mmol/L (136-145); UREA NITROGEN, BLOOD 22 mg/dL (7-18)
[2018-11-21 14:21] LABS: ALBUMIN 3.2 g/dL (3.4-5.0); ASPARTATE AMINOTRANSFERASE 12 U/L (15-37); TOTAL BILIRUBIN 0.5 mg/dL (0.0-1.0)
[2018-11-21] MEDS ORDERED: ASPIRIN 81 MG TAB.CHEW PO ONE (14:40)
[2018-11-21] MEDS ORDERED: HYDROcodone/APAP 7.5/325 MG 1 TAB PO PRN (14:55)
[2018-11-21] MEDS: NACL 0.9% 1,000 ML IV SCH (14:55)
[2018-11-21] MEDS ORDERED: ACETAMINOPHEN 325 MG TAB PO PRN (14:55)
[2018-11-21] MEDS ORDERED: ONDANSETRON 4 MG/2 ML VIAL IVP PRN (14:55)
[2018-11-21] MEDS ORDERED: MECLIZINE 25 MG TAB PO PRN (15:30)
[2018-11-21] MEDS ORDERED: DEXTROSE 50% 50 ML SYR IVP PRN (15:35)
--- NOTE | 2018-11-21 15:36 | NUR ---
LAB AT BEDSIDE.
--- NOTE | 2018-11-21 15:38 | NUR ---
DAUGHTER AT BEDSIDE
[2018-11-21 15:47] LABS: CHOL/HDL RATIO 3.6 (1-4.5); FREE T4 (FREE THYROXINE) 1.15 ng/dL (0.76-1.46); MAGNESIUM 2.4 mg/dL (1.8-2.4); PHOSPHORUS 3.3 mg/dL (2.5-4.9); THYROID STIMULATING HORMONE 1.42 uIU/mL (0.34-3.74)
--- NOTE | 2018-11-21 15:55 | NUR ---
PT TAKEN TO TELE FLOOR BY NICHOLAS AVENDAÑO AND EMT TYRONE
[2018-11-21] MEDS ORDERED: POTASSIUM CHLORIDE 10 MEQ TABER PO SCH (16:02)
--- NOTE | 2018-11-21 16:07 | NUR ---
Patient will be admitted to care of DR BOWDEN. Admited to TELE. Will go to room 119A. Belongings list completed. Report to RAMA PETERSON.
[2018-11-21 16:30] VITALS: BP 149/76
[2018-11-21] MEDS: BLOOD GLUCOSE MONITORING 1 DEV DEV FS SCH ×2 (16:30→20:31)
--- NOTE | 2018-11-21 16:30 | NUR ---
PT ARRIVED FROM ER IN [facility], REPORT RECIEVED FROM SPREADING MACHINE OPERATOR, PT PLACED ON BATTERY TESTER FIELD, AWAKE, ALERT, RESP EVEN UNLABORED, SKIN WARM DRY COLOR WNL, PT ORIENTED TO ROOM AND FLOOR,, ALL SAFETY MEASURES ACTIVATED, POC REVIEWED, WILL COTNINUE TO MONITOR.
--- NOTE | 2018-11-21 17:00 | NUR ---
US AT BEDSIDE, DAUGHTER FERNANDA AT BEDSIDE.
[2018-11-21] MEDS ORDERED: KCL 20 MEQ/WATER INJ PREMIX 100 ML IV SCH (17:45)
--- NOTE | 2018-11-21 17:50 | NUR ---
PER TELE MONITOR, PT WITH DECREASED HR DOWN TO 40 WHEN AT REST WITHOUT STIMULATION, DR MO NOTIFIED.
--- NOTE | 2018-11-21 18:05 | NUR ---
DR MATHEWS AND DR MO AT BEDSIDE.
--- NOTE | 2018-11-21 18:20 | NUR ---
BEDSIDE GLUCOSE 114, NO INSULIN NEEDED PER SLIDING SCALE, PT SITTING UP EATING DINNER WITH ASSISTANCE BY DAUGHTER NURY.
--- NOTE | 2018-11-21 18:20 | NUR ---
PT C/O PAIN AT IV SITE WITH POTASSIUM INFUSION, RATE DECREASED, WILL CONTINUE TO MONITOR.
--- NOTE | 2018-11-21 19:30 | NUR ---
REPORT GIVEN TO OVERHEAD IRRIGATOR NURSE, PT INSTABLE CONDITION.
--- NOTE | 2018-11-21 19:31 | NUR ---
RECEIVED REPORT FROM NICHOLAS ONTIVEROS FOR CONTINUITY OF CARE. PT A/OX1 TO SELF ONLY, ON ROOM AIR, PALESTINIAN SPEAKING. PT IS ABLE TO MAKE NEEDS KNOWN, ABLE TO FOLLOW COMMANDS. PT AMBULATES WITH STEADY GAIT AND SKIN IS INTACT. PT HAS A 22G IV TO RIGHT HAND, ASYMPTOMATIC AND INTACT. VITAL SIGNS WITHIN NORMAL LIMITS. PT STABLE, DENIES HAVING ANY PAIN, NO SIGNS OF DISTRESS NOTED AT THIS TIME. PT POSITIONED FOR COMFORT. BED IN LOWEST POSITION, BED ALARM ON. WILL CONTINUE TO MONITOR. Addendum: 11/21/18 at 2147 by Gracie Crabtree RN DISREGARD.
--- NOTE | 2018-11-21 19:32 | NUR ---
RECEIVED REPORT FROM NICHOLAS ONTIVEROS FOR CONTINUITY OF CARE. PT A/OX1 TO SELF ONLY, ON ROOM AIR, TRISTANIAN SPEAKING. PT IS ABLE TO MAKE NEEDS KNOWN, ABLE TO FOLLOW COMMANDS. PT IS ON BEDREST AND SKIN IS INTACT. PT HAS A 22G IV TO RIGHT HAND, ASYMPTOMATIC AND INTACT. PT HAS A LEFT UPPER ARM SHUNT FOR DIALYSIS. VITAL SIGNS WITHIN NORMAL LIMITS. PT STABLE, DENIES HAVING ANY PAIN, NO SIGNS OF DISTRESS NOTED AT THIS TIME. PT POSITIONED FOR COMFORT. BED IN LOWEST POSITION, BED ALARM ON. WILL CONTINUE TO MONITOR.
[2018-11-21 19:57] LABS: BILIRUBIN,URINE NEGATIVE (NEGATIVE); BLOOD, URINE TRACE-I (NEGATIVE); COLOR,URINE YELLOW (YELLOW); LEUKOCYTE ESTERASE ,URINE NEGATIVE (NEGATIVE); NITRITE, URINE NEGATIVE (NEGATIVE); UGLUCOSE 2+ (NEGATIVE)
[2018-11-21 19:58] LABS: APPEARANCE,URINE HAZY (CLEAR)
[2018-11-21 20:00] VITALS: BP 176/61
[2018-11-21 20:03] LABS: RBC,URINE 0-5 (RARE) /HPF (0-5); WBC,URINE 16-25 (MOD) /HPF (0-5)
[2018-11-21 20:10] LABS: BARBITURATE, URINE NEG. ng/ml (NEG <=200); BENZODIAZEPINE, URINE NEG. ng/mL (NEG <=200); CANNABINOID, URINE NEG. ng/mL (NEG <=50); COCAINE, URINE NEG. ng/mL (NEG <=300); OPIATE, URINE NEG. ng/mL (NEG <=2000); PHENCYCLIDINE SCREEN,URINE NEG. ng/mL (NEG <=25)
[2018-11-21] MEDS ORDERED: AMLO10TA4 PO (20:12)
[2018-11-21] MEDS ORDERED: ISOS10TA9 PO (20:20)
[2018-11-21] MEDS: DOCUSATE SODIUM 100 MG GELCAP PO SCH (20:29)
[2018-11-21] MEDS: INSULIN LANTUS 100 UNITS/ML 10 ML VIAL SUBQ SCH (20:31)
[2018-11-21] MEDS: INSULIN LISPRO SLIDING SCALE 100 UNITS/ML VIAL SUBQ PRN (20:32)
[2018-11-21] MEDS: BRIMONIDINE TARTRATE 0.2% OP 5 ML BTL OP SCH (21:00)
[2018-11-21] MEDS ORDERED: BRIMONIDINE TARTRATE BOTH EYES SCH (21:00)
[2018-11-21] MEDS ORDERED: TIMOLOL BOTH EYES SCH (21:00)
[2018-11-21] MEDS ORDERED: ISOSORBIDE DINITRATE 10 MG TAB PO SCH (21:00)
[2018-11-21] MEDS: TIMOLOL OP 0.5% 5 ML BTL OP SCH (21:00)
[2018-11-21] MEDS: ISOSORBIDE DINITRATE 10 MG TAB PO SCH (21:08)
--- NOTE | 2018-11-21 21:10 | NUR ---
ADMINISTERED SCHEDULED MEDICATIONS, PT TOLERATED WELL. EYE DROPS NOT AVAILABLE AT THE MOMENT.
[2018-11-21] MEDS ORDERED: cefTRIAXone 1,000 MG VIAL ONE (21:13)
[2018-11-21] MEDS ORDERED: PNEUMOCOCCAL VACCINE 23 MCG/0.5 ML VIAL IMVAC PRN (23:20)
[2018-11-21] MEDS ORDERED: INFLUENZA VIRUS VACCINE QUAD 0.5 ML SYR IMVAC PRN (23:20)
[2018-11-22] VITALS: BP 167/71
--- NOTE | 2018-11-22 | NUR ---
BP IS 167/71. OTHER VITAL SIGNS WITHIN NORMAL LIMITS. PT STABLE, DENIES HAVING ANY PAIN, NO SIGNS OF DISTRESS NOTED AT THIS TIME. PT POSITIONED FOR COMFORT. BED IN LOWEST POSITION, BED ALARM ON. WILL CONTINUE TO MONITOR.
[2018-11-22] MEDS ORDERED: amLODIPine 5 MG TAB PO SCH ×2 (00:15→09:00)
--- NOTE | 2018-11-22 00:45 | NUR ---
SPOKE WITH DR WHITE ABOUT PT BP, SAID TO GIVE NEXT MORNING'S NORVASC. CALLED PHARMACY BECAUSE I WAS NOT ABLE TO GET IT OUT OF [facility]. THEY TOLD ME WE NEEDED A ONE TIME ORDER. I ASKED DR WHITE TO PLACE ORDER.
--- NOTE | 2018-11-22 01:20 | NUR ---
BP NOW 175/65. ADMINISTERED NORVASC ORDERED. PT TOLERATED WELL. WILL REASSESS BP.
--- NOTE | 2018-11-22 02:10 | NUR ---
PT BP NOW 148/49 WITH PULSE 104. WILL CONTINUE TO MONITOR PT.
[2018-11-22 04:00] VITALS: BP 111/43
--- NOTE | 2018-11-22 04:00 | NUR ---
VITAL SIGNS WITHIN NORMAL LIMITS. PT STABLE, DENIES HAVING ANY PAIN, NO SIGNS OF DISTRESS NOTED AT THIS TIME. PT POSITIONED FOR COMFORT. BED IN LOWEST POSITION, BED ALARM ON. WILL CONTINUE TO MONITOR.
[2018-11-22] MEDS: BLOOD GLUCOSE MONITORING 1 DEV DEV FS SCH ×4 (06:27→21:23)
[2018-11-22 07:09] LABS: BASOPHILS # (AUTO) 0.1 K/uL (0.00-0.22); BASOPHILS % (AUTO) 1.2 % (0.0-2.0); EOSINOPHILS # (AUTO) 0.2 K/uL (0-0.4); EOSINOPHILS % (AUTO) 2.9 % (0.0-4.0); HEMATOCRIT 38.2 % (36-48); HEMOGLOBIN 12.2 g/dL (12.0-16.0); LYMPHOCYTES # (AUTO) 1.1 K/uL (2.5-16.5); LYMPHOCYTES % (AUTO) 19.3 % (20.5-51.1); MEAN CORPUSCULAR HEMOGLOBIN 29 pg (27-31); MEAN CORPUSCULAR HGB CONC 32 g/dL (33-37); MEAN CORPUSCULAR VOLUME 92.1 fL (80-94); MONOCYTES # (AUTO) 0.5 K/uL (0.8-1.0); MONOCYTES % (AUTO) 9.5 % (1.7-9.3); NEUTROPHILS # (AUTO) 3.7 K/uL (1.8-7.7); NEUTROPHILS % (AUTO) 67.1 % (42.2-75.2); PLATELET COUNT (AUTO) 146 K/uL (140-450); RED BLOOD CELL COUNT(AUTO) 4.15 MIL/uL (4.20-5.40); RED CELL DISTRIBUTION WIDTH 15.5 % (11.6-13.7); WHITE BLOOD COUNT (AUTO) 5.6 K/uL (4.8-10.8)
--- NOTE | 2018-11-22 07:10 | NUR ---
RECEIVED BEDSIDE REPORT FROM ACOUSTICAL ENGINEER NURSE. PATIENT AAOX1. PATIENT ON ROOM AIR, NO DISTRESS NOTED. SKIN INTACT. ONE IV ON R FA 20 G SALINE LOCK, CLEAN DRY AND INTACT. R HAND 20 G CLEAN DRY AND INTACT SALINE LOCK. PATIENT ON TELE MONITOR AND STANDARD PRECAUTIONS. L AV FISTULA, WRIST BAND ON FOR NO BP/VENIPUNCTURE ON L ARM. FALL RISK PROTOCOL IN PLACE. BED IN LOW POSITION, CALL LIGHT WITHIN REACH. WILL CONTINUE TO MONITOR.
[2018-11-22 07:14] LABS: ANION GAP 8.9 (8-16); CARBON DIOXIDE 34.7 mmol/L (21-32); CHLORIDE 101 mmol/L (98-107); GLUCOSE 73 mg/dL (74-106); POTASSIUM 3.6 mmol/L (3.5-5.1); SODIUM SERUM 141 mmol/L (136-145); UREA NITROGEN, BLOOD 38 mg/dL (7-18)
[2018-11-22 07:19] LABS: MAGNESIUM 2.5 mg/dL (1.8-2.4); PHOSPHORUS 4.4 mg/dL (2.5-4.9)
--- NOTE | 2018-11-22 07:37 | NUR ---
PATIENT BACK FROM CT. PATIENT LAYING IN BED. NO DISTRESS NOTED, ON ROOM AIR.
--- NOTE | 2018-11-22 07:49 | NUR ---
ENDORSED PT TO DAY SHIFT NICHOLAS MOHAMUD FOR CONTINUITY OF CARE. PT IN STABLE CONDITION.
[2018-11-22 08:01] VITALS: BP 155/58
--- NOTE | 2018-11-22 08:21 | NUR ---
PATIENT HAS BEEN SCREENED AND CATEGORIZED HIGH NUTRITION RISK. PATIENT WILL BE SEEN WITHIN 1-2 DAYS OF ADMISSION. 11/22/18-11/23/[address]
[2018-11-22] MEDS: ISOSORBIDE DINITRATE 10 MG TAB PO SCH ×2 (08:32→21:20)
[2018-11-22] MEDS: LEVOTHYROXINE 0.088 MG TAB PO SCH (08:33)
[2018-11-22] MEDS: ATORVASTATIN 20 MG TAB PO SCH (08:34)
[2018-11-22] MEDS: ESCITALOPRAM 20 MG TAB PO SCH (08:35)
[2018-11-22] MEDS: PRIMIDONE 50 MG TAB PO SCH (08:35)
[2018-11-22] MEDS: amLODIPine 5 MG TAB PO SCH (08:36)
[2018-11-22] MEDS: DOCUSATE SODIUM 100 MG GELCAP PO SCH ×2 (08:36→21:19)
[2018-11-22] MEDS: PANTOPRAZOLE 40 MG INJ VIAL IVP SCH (08:37)
[2018-11-22] MEDS: TIMOLOL OP 0.5% 5 ML BTL OP SCH ×2 (08:38→21:21)
[2018-11-22] MEDS: BRIMONIDINE TARTRATE 0.2% OP 5 ML BTL OP SCH ×2 (08:38→21:23)
[2018-11-22] MEDS: ASPIRIN 81 MG TAB.CHEW PO SCH (08:42)
--- NOTE | 2018-11-22 08:53 | NUR ---
ADMINISTERED SCHEDULED MEDS. PATIENT TOLERATED WELL. WILL CONTINUE TO MONITOR.
--- NOTE | 2018-11-22 12:09 | NUR ---
BLOOD SUGAR 132. NO COVERAGE NEEDED. PATIENT WATCHING TV, ON ROOM AIR NO DISTRESS NOTED. PATIENT NOW OFF TELE MONITOR. WILL CONTINUE TO MONITOR.
--- NOTE | 2018-11-22 15:35 | NUR ---
11/22/18 RD INITIAL ASSESSMENT COMPLETED PLEASE REFER TO NUTRITION ASSESSMENT UNDER CARE ACTIVITY FOR ESTIMATED NUTRITIONAL NEEDS. RD RECOMMENDATIONS: 1. RECOMMEND RENAL AND CCHO 60 GM DIET TOLERATED 2. RECOMMEND NEPRO BID 3. RD PROVIDED NUTRITION EDUCATION ON ESRD AND DIABETES 4. RD TO FOLLOW-UP 2-3 DAYS, HIGH RISK SHAKA TRUJILLO RD
--- NOTE | 2018-11-22 15:39 | NUR ---
PATIENT WATCHING TV. NO DISTRESS NOTED, ON ROOM AIR. WILL CONTINUE TO MONITOR.
--- NOTE | 2018-11-22 15:55 | NUR ---
SPOKE WITH PARKER AT [facility] AND NOTIFIED HER WITH THE [facility] ORDER FOR TOMORROW 11/10/[address] CHEST/ABD/PELVIS IS DONE.
[2018-11-22 16:00] VITALS: BP 139/66
--- NOTE | 2018-11-22 16:46 | NUR ---
FAMILY AT BEDSIDE. ON ROOM AIR, NO DISTRESS NOTED. BLOOD SUGAR OF 170. WILL ADMINISTER INSULIN PER SLIDING SCALE. WILL CONTINUE TO MONITOR PATIENT.
[2018-11-22] MEDS: INSULIN LISPRO SLIDING SCALE 100 UNITS/ML VIAL SUBQ PRN (17:21)
[2018-11-22] MEDS: NACL 0.9% 1,000 ML IV SCH (17:22)
--- NOTE | 2018-11-22 17:31 | NUR ---
PATIENT WATCHING TV. OVER HAULER HELPER AND I LIFTED PATIENT UP IN BED. ON ROOM AIR, NO DISTRESS NOTED. WILL CONTINUE TO MONITOR.
--- NOTE | 2018-11-22 18:00 | NUR ---
MADE COPY OF CONSENT FOR CT W CONTRAST IN PATIENTS CHART.
--- NOTE | 2018-11-22 19:21 | NUR ---
GAVE REORT TO RIDING TEACHER NURSE JOHAN. PATIENT ENDORSED IN STABLE CONDITION.
--- NOTE | 2018-11-22 19:22 | NUR ---
RECD. RESTING IN BED, AWAKE, A/OX2. RESPIRATION EVEN AND UNLABORED. IV NS AT TKO INFUSING AT 10 ML/HR.RIGHT FOREARM G20. AV SHUNT AT THE LEFT FOREARM WITH BRUIT AND THRILL. REORIENTED TO HOSPITAL SETTING. PLAN OF CARE FOR THE SHIFT DISCUSSED. NEEDS REINFORCEMENT. PUT BED ON ALARM. DENIES PAIN 0/10.
[2018-11-22] MEDS: INSULIN LANTUS 100 UNITS/ML 10 ML VIAL SUBQ SCH (21:00)
--- NOTE | 2018-11-22 21:25 | NUR ---
DUE PO MEDICATIONS GIVEN. BS 105, LANTUS 10 UNITS NOT GIVEN, DR. ARVIZU AND DR. ROMERO AWARE. PATIENT IS NPO FOR CT OF ABD/PELVIS WITH IV CONTRAST AT 0500.
--- NOTE | 2018-11-22 21:37 | NUR ---
PT GIVEN ROCEPHIN ORDERED. PT TOLERATED IT WELL. SLEEPING AT THIS TIME. NO ADVERSE REACTIONS NOTED
--- NOTE | 2018-11-22 21:40 | NUR ---
TRYING TO GET OUT OF BED TO VOID IN THE BR. PUT BEDSIDE COMMODE FOR PATIENT TO VOID, BUT UNABLE TO PASSED URINE.
[2018-11-23] VITALS: BP 130/82
--- NOTE | 2018-11-23 | NUR ---
SLEEPING COMFORTABLY IN BED.
--- NOTE | 2018-11-23 05:30 | NUR ---
WAKEN UP, ASSISTED TO W/C TO GO TO RADIOLOGY FOR CT ACCOMPANIED BY FILOMENA.
[2018-11-23] MEDS: LEVOTHYROXINE 0.088 MG TAB PO SCH (07:05)
[2018-11-23 07:12] LABS: BASOPHILS % (AUTO) 1.2 % (0.0-2.0); EOSINOPHILS # (AUTO) 0.2 K/uL (0-0.4); EOSINOPHILS % (AUTO) 4.3 % (0.0-4.0); HEMATOCRIT 36.6 % (36-48); HEMOGLOBIN 11.6 g/dL (12.0-16.0); LYMPHOCYTES # (AUTO) 1.1 K/uL (2.5-16.5); LYMPHOCYTES % (AUTO) 26.6 % (20.5-51.1); MEAN CORPUSCULAR HEMOGLOBIN 30 pg (27-31); MEAN CORPUSCULAR HGB CONC 32 g/dL (33-37); MEAN CORPUSCULAR VOLUME 92.6 fL (80-94); MONOCYTES # (AUTO) 0.4 K/uL (0.8-1.0); MONOCYTES % (AUTO) 9.3 % (1.7-9.3); NEUTROPHILS # (AUTO) 2.4 K/uL (1.8-7.7); NEUTROPHILS % (AUTO) 58.6 % (42.2-75.2); PLATELET COUNT (AUTO) 146 K/uL (140-450); RED BLOOD CELL COUNT(AUTO) 3.95 MIL/uL (4.20-5.40); RED CELL DISTRIBUTION WIDTH 15.4 % (11.6-13.7); WHITE BLOOD COUNT (AUTO) 4.2 K/uL (4.8-10.8)
[2018-11-23] MEDS: BLOOD GLUCOSE MONITORING 1 DEV DEV FS SCH ×4 (07:15→19:59)
--- NOTE | 2018-11-23 07:15 | NUR ---
TAKEN BS BY NURSE IN CHARGE, JOHAN AND RESULT HYPOGLYCEMIA AT 55MG/DL. GIVEN D50 50 ML IV PUSH.
[2018-11-23 07:22] LABS: ANION GAP 7.3 (8-16); CARBON DIOXIDE 31.8 mmol/L (21-32); CHLORIDE 101 mmol/L (98-107); GLUCOSE 66 mg/dL (74-106); POTASSIUM 4.1 mmol/L (3.5-5.1); SODIUM SERUM 136 mmol/L (136-145); UREA NITROGEN, BLOOD 55 mg/dL (7-18)
[2018-11-23 07:28] LABS: MAGNESIUM 2.6 mg/dL (1.8-2.4); PHOSPHORUS 5.7 mg/dL (2.5-4.9)
--- NOTE | 2018-11-23 07:30 | NUR ---
ENDORSED TO AM NURSE FOR CONTINUITY OF CARE.
[2018-11-23 08:00] VITALS: BP 159/48
[2018-11-23 08:10] LABS: CREATININE 5.3 mg/dL (0.6-1.3)
--- NOTE | 2018-11-23 08:10 | NUR ---
PATIENT WAS SLEEPING COMFORTABLY, RESPONSIVE TO TOUCH. RESPIRATION EVEN, UNLABOR ON ROOM AIR. SKIN DRY AND WARM. IV PATENT AND INTACT. FLACC 0. BED AT LOW POSITION, SIDE RAILS UP. BED ALARM ACTIVE. CALL LIGHT WITHIN REACH
[2018-11-23] MEDS: amLODIPine 5 MG TAB PO SCH (09:00)
[2018-11-23] MEDS: ISOSORBIDE DINITRATE 10 MG TAB PO SCH ×2 (09:00→20:28)
[2018-11-23] MEDS: BRIMONIDINE TARTRATE 0.2% OP 5 ML BTL OP SCH ×3 (09:20→20:08)
[2018-11-23] MEDS: PRIMIDONE 50 MG TAB PO SCH (09:20)
[2018-11-23] MEDS: TIMOLOL OP 0.5% 5 ML BTL OP SCH ×2 (09:20→20:04)
[2018-11-23] MEDS: PANTOPRAZOLE 40 MG INJ VIAL IVP SCH (09:21)
[2018-11-23] MEDS: ATORVASTATIN 20 MG TAB PO SCH (09:21)
[2018-11-23] MEDS: DOCUSATE SODIUM 100 MG GELCAP PO SCH ×2 (09:21→20:27)
[2018-11-23] MEDS: ASPIRIN 81 MG TAB.CHEW PO SCH (09:21)
[2018-11-23] MEDS: ESCITALOPRAM 20 MG TAB PO SCH (09:21)
--- NOTE | 2018-11-23 09:30 | NUR ---
HEMODIALYSIS CONSENT WAS OBTAINED OVER TELEPHONE WITH DAUGHTER NURY
--- NOTE | 2018-11-23 09:45 | NUR ---
P.T. NOTES PATIENT UNABLE TO BE SEEN FOR P.T. SERVICES DUE TO SHE'S CURRENTLY UNDERGOING HEMODIALYSIS. PLAN: WE'LL CONTINUE P.T. SERVICES PER PLAN OF CARE TOMORROW IF SHE REMAINS IN THIS HOSPITAL.
--- NOTE | 2018-11-23 11:44 | NUR ---
PATIENT WAS RESTING COMFORTABLY. RESPIRATION EVEN, UNLABOR ON ROOM AIR. DIALYSIS IS AT BEDSIDE. NO DISTRESS NOTED AT THIS TIME. CALL LIGHT WITHIN REACH
[2018-11-23] MEDS: INSULIN LISPRO SLIDING SCALE 100 UNITS/ML VIAL SUBQ PRN ×2 (12:35→19:59)
--- NOTE | 2018-11-23 14:15 | NUR ---
PATIENT WAS RESTING COMFORTABLY. RESPIRATION EVEN, UNLABOR ON ROOM AIR. NO DISTRESS NOTED AT THIS TIME
[2018-11-23] MEDS: NACL 0.9% 1,000 ML IV SCH (14:55)
[2018-11-23 16:00] VITALS: BP 145/45
--- NOTE | 2018-11-23 16:10 | NUR ---
PATIENT WAS AWAKE. RESPIRATION EVEN, UNLABOR ON ROOM AIR. DENIED PAIN, DIZZINESS. FAMILY AT BEDSIDE. CALL LIGHT WITHIN REACH
--- NOTE | 2018-11-23 17:45 | NUR ---
PATIENT WAS AWAKE. RESPIRATION EVEN, UNLABOR NO ROOM AIR. IV PATENT AND INTACT. FAMILY AT BEDSIDE. NO DISTRESS NOTED AT THIS TIME. CALL LIGHT WITHIN REACH
--- NOTE | 2018-11-23 19:25 | NUR ---
ENDORSEMENT GIVEN TO DRY LUMBER GRADER NURSE. PATIENT IS STABLE AT THIS TIME.
--- NOTE | 2018-11-23 19:30 | NUR ---
RECEIVED PATIENT AWAKE LYING COMFORTABLY WITH HOB ELEVATED. RESPIRATION EVEN AND UNLABORED IN ROOM AIR. FALL PRECAUTION APPLIED.AV SHUNT AT LEFT UPPER ARM FOR HD. IVF INFUSING WELL. EXPLAINED PLAN OF CARE. EXPLAINED PLAN OF CARE. CALL LIGHT WITHIN REACH. WILL CONTINUE TO MONITOR.
[2018-11-23] MEDS: INSULIN LANTUS 100 UNITS/ML 10 ML VIAL SUBQ SCH (19:56)
--- NOTE | 2018-11-23 21:00 | NUR ---
V/S TAKEN AND RECORDED. SCHEDULE MEDICATION GIVEN TOLERATED WELL. REPOSITIONED PATIENT AND PLACE IN COMFORTABLE POSITION. CALL LIGHT WITHIN REACH. WILL CONTINUE TO MONITOR.
[2018-11-24] VITALS: BP 145/61
--- NOTE | 2018-11-24 | NUR ---
SEEN PATIENT ASLEEP COMFORTABLY ON BED BUT EASILY AROUSABLE. RESPIRATION EVEN AND UNLABORED IN ROOM AIR. PLACED PATIENT IN COMFORTABLE POSITION AND KEEP PATIENT WARM . NO SIGN OF DISTRESS NOTED. CALL LIGHT WITHIN REACH. FALL PRECAUTION IN PLACE. WILL CONTINUE TO MONITOR.
--- NOTE | 2018-11-24 02:00 | NUR ---
SEEN PATIENT ASLEEP ON BED BUT EASILY AROUSABLE. . LEFT ARM SHUNT WITH PALPABLE THRILL AND BRUIT.NO SIGN OF DISTRESS NOTED. HOURLY ROUNDING DONE. CALL LIGHT WITHIN REACH.
--- NOTE | 2018-11-24 04:30 | NUR ---
AM CARE DONE BY CONSTRUCTION WORKER. PLACED PATIENT IN COMFORTABLE AND RELAXED POSITION .MAINTAIN QUIET ENVIRONMENT AND AVOID DESTRUCTION FOR WELLNESS AND RECOVERY.SAFETY MEASURES IMPLEMENTED. ALL NEEDS ATTENDED. NO SIGN OF DISTRESS NOTED AT THIS TIME. CALL LIGHT WITHIN REACH. WILL CONTINUE TO MONITOR.
--- NOTE | 2018-11-24 06:05 | NUR ---
BS TAKEN 162 WITH COVERAGE. INSULIN GIVEN 2 UNITS PER SLIDING SCALE.
[2018-11-24] MEDS: INSULIN LISPRO SLIDING SCALE 100 UNITS/ML VIAL SUBQ PRN ×4 (06:07→20:40)
[2018-11-24] MEDS: BLOOD GLUCOSE MONITORING 1 DEV DEV FS SCH ×4 (06:07→20:23)
--- NOTE | 2018-11-24 06:17 | NUR ---
SYNTHROID NOT AVAILABLE IN [facility] BOTH TELE AND MED-SURG. FERNANDO PATTERSON.
[2018-11-24 06:48] LABS: BASOPHILS # (AUTO) 0.1 K/uL (0.00-0.22); BASOPHILS % (AUTO) 1.3 % (0.0-2.0); EOSINOPHILS # (AUTO) 0.2 K/uL (0-0.4); EOSINOPHILS % (AUTO) 3.7 % (0.0-4.0); HEMATOCRIT 34.3 % (36-48); HEMOGLOBIN 10.9 g/dL (12.0-16.0); LYMPHOCYTES % (AUTO) 20.8 % (20.5-51.1); MEAN CORPUSCULAR HEMOGLOBIN 30 pg (27-31); MEAN CORPUSCULAR HGB CONC 32 g/dL (33-37); MEAN CORPUSCULAR VOLUME 93.6 fL (80-94); MONOCYTES # (AUTO) 0.5 K/uL (0.8-1.0); MONOCYTES % (AUTO) 9.1 % (1.7-9.3); NEUTROPHILS # (AUTO) 3.2 K/uL (1.8-7.7); NEUTROPHILS % (AUTO) 65.1 % (42.2-75.2); PLATELET COUNT (AUTO) 127 K/uL (140-450); RED BLOOD CELL COUNT(AUTO) 3.67 MIL/uL (4.20-5.40); RED CELL DISTRIBUTION WIDTH 15.4 % (11.6-13.7); WHITE BLOOD COUNT (AUTO) 4.9 K/uL (4.8-10.8)
[2018-11-24 07:06] LABS: ANION GAP 10.7 (8-16); CARBON DIOXIDE 28.1 mmol/L (21-32); CHLORIDE 102 mmol/L (98-107); GLUCOSE 159 mg/dL (74-106); POTASSIUM 4.8 mmol/L (3.5-5.1); SODIUM SERUM 136 mmol/L (136-145); UREA NITROGEN, BLOOD 34 mg/dL (7-18)
[2018-11-24 07:08] LABS: MAGNESIUM 2.2 mg/dL (1.8-2.4); PHOSPHORUS 4.6 mg/dL (2.5-4.9)
--- NOTE | 2018-11-24 07:08 | NUR ---
ENDORSEMENT GIVEN TO AM SHIFT RN AT BEDSIDE FOR CONTINUITY OF CARE. CALL LIGHT WITHIN REACH. ALL NEEDS ATTENDED. PATIENT IN STABLE CONDITION.
--- NOTE | 2018-11-24 07:45 | NUR ---
PATIENT WAS SLEEPING COMFORTABLY, ABLE TO FOLLOW COMMAND. RESPIRATION EVEN, UNLABOR ON ROOM AIR. SKIN DRY AND WARM. IVS PATENT AND INTACT. FLACC 0. PLAN OF CARE WAS DISCUSSED WITH PATIENT. BED AT LOW POSITION, SIDE RAILS WITHIN REACH. BED ALARM ACTIVE
[2018-11-24 08:00] VITALS: BP 138/45
[2018-11-24] MEDS: TIMOLOL OP 0.5% 5 ML BTL OP SCH ×2 (08:39→20:34)
[2018-11-24] MEDS: BRIMONIDINE TARTRATE 0.2% OP 5 ML BTL OP SCH ×2 (08:39→20:35)
[2018-11-24] MEDS: LEVOTHYROXINE 0.088 MG TAB PO SCH (08:40)
[2018-11-24] MEDS: PANTOPRAZOLE 40 MG INJ VIAL IVP SCH (08:40)
[2018-11-24] MEDS: ATORVASTATIN 20 MG TAB PO SCH (08:40)
[2018-11-24] MEDS: amLODIPine 5 MG TAB PO SCH (08:40)
[2018-11-24] MEDS: ESCITALOPRAM 20 MG TAB PO SCH (08:40)
[2018-11-24] MEDS: ASPIRIN 81 MG TAB.CHEW PO SCH (08:41)
[2018-11-24] MEDS: DOCUSATE SODIUM 100 MG GELCAP PO SCH ×2 (08:41→20:35)
[2018-11-24] MEDS: ISOSORBIDE DINITRATE 10 MG TAB PO SCH ×2 (08:41→20:35)
[2018-11-24] MEDS: PRIMIDONE 50 MG TAB PO SCH (08:41)
--- NOTE | 2018-11-24 10:30 | NUR ---
CT ABDOMEN CONSENT WAS OBTAINED WITH DAUGHTER NURY VIA TELEPHONE
--- NOTE | 2018-11-24 10:40 | NUR ---
Carbon Brusher Assembler Note: Note for 11/22/18: I called and spoke with patient's daughter Joleen, patient lives with her and her Celio. Joleen stated her sister Bianca and Celio assist patient with ADLs at home. She reported she is in the process of hiring a private caregiver to assist patient with ADLs on Mondays, Wednesdays, and Fridays. She requested information on community resources for home care at no cost. I provided her with education on community resources for home care ([facility], [facility] [phone], and [facility] [phone]. I will leave printed community resources in patient's room. Marsha told me she and her sister Bianca are patient's health care decision makers. She reported they don't have any difficulty filling patient's prescriptions. Jacquard Lace Weaver and/or Labor Relations Analyst will follow up as needed.
--- NOTE | 2018-11-24 10:53 | NUR ---
11/24/18 RD FOLLOW UP COMPLETED PLEASE REFER TO NUTRITION ASSESSMENT UNDER CARE ACTIVITY FOR ESTIMATED NUTRITIONAL NEEDS. RD RECOMMENDATIONS: 1. RECOMMEND ADDING RENAL DIET TO CCHO 60 GM DIET TOLERATED 2. CONTINUE NEPRO BID 3. RECOMMEND NEPROVITE QD 4. RD TO FOLLOW-UP 2-3 DAYS, HIGH RISK SHAKA TRUJILLO, RD
--- NOTE | 2018-11-24 11:48 | NUR ---
SPOKE WITH PARKER ([facility]), AND NOTIFIED HER WITH HEMODIALYSIS ORDER FOR TOMORROW.
--- NOTE | 2018-11-24 11:57 | NUR ---
PATIENT WAS AWAKE, SITTING ON THE CHAIR COMFORTABLY. RESPIRATION EVEN, UNLABOR ON ROOM AIR. NO DISTRESS NOTED AT THIS TIME
--- NOTE | 2018-11-24 14:10 | NUR ---
PATIENT WAS SLEEPING COMFORTABLY. RESPIRATION EVEN, UNLABOR ON ROOM AIR. NO DISTRESS NOTED AT THIS TIME
[2018-11-24] MEDS: NACL 0.9% 1,000 ML IV SCH (14:55)
[2018-11-24 16:00] VITALS: BP 115/49
--- NOTE | 2018-11-24 16:33 | NUR ---
PATIENT WAS SLEEPING COMFORTABLY, EASILY AROUSABLE BY TOUCH. NO DISTRESS NOTED AT THIS TIME. CALL LIGHT WITHIN REACH
--- NOTE | 2018-11-24 18:26 | NUR ---
PATIENT WAS AWAKE, EATING DINNER COMFORTABLY. RESPIRATION EVEN, UNLABOR ON ROOM AIR. IV PATENT AND INTACT. NO DISTRESS NOTED AT THIS TIME
--- NOTE | 2018-11-24 19:09 | NUR ---
IV ON RIGHT AC WAS LEAKING. IV WAS REMOVED, CATHETER INTACT. NO ACTIVE BLEEDING SEEN
--- NOTE | 2018-11-24 19:29 | NUR ---
ENDORSEMENT GIVEN TO HARPOONER NURSE. PATIENT IS STABLE AT THIS TIME
--- NOTE | 2018-11-24 19:30 | NUR ---
RECEIVED PATIENT AWAKE LYING COMFORTABLY ON BED. REPOSITIONED PATIENT FOR COMFORT AND ELEVATE HOB. EXPLAINED TO PATIENT PLAN OF CARE . NO IV ACCESS AT THIS TIME WILL REINSERTED LATER. (+)LEFT ARM AV SHUNT WITH PALPABLE THRILL AND BRUIT.PATIENT FOLLOW COMMAND AND ABLE TO EXPRESS HER NEEDS. FALL PRECAUTION APPLIED. CALL LIGHT WITHIN REACH. WILL CONTINUE TO MONITOR.
[2018-11-24] MEDS: INSULIN LANTUS 100 UNITS/ML 10 ML VIAL SUBQ SCH (20:29)
--- NOTE | 2018-11-24 21:00 | NUR ---
V/S TAKEN WNL. SCHEDULE MEDICATION GIVEN TOLERATED WELL. ALL NEEDS ATTENDED. NO S/S OF DISTRESS. FALL PRECAUTION APPLIED. CALL LIGHT WITHIN REACH. EXPLAINED TO USE CALL LIGHT FOR ASSISTANCE AND VERBALIZED UNDERSTANDING. WILL CONTINUE TO MONITOR.
--- NOTE | 2018-11-24 21:20 | NUR ---
RECEIVED A CALL FROM [employer]EE PRODUCT SUPPORT REPRESENTATIVE TO CONFIRMED THE DIALYSIS ORDER AND AWARE ABOUT THE DIALYSIS SCHEDULE TOMORROW TUESDAY.
--- NOTE | 2018-11-24 21:30 | NUR ---
IV REINSERTED BY CN AT RIGHT FA 22 G. PATIENT TOLERATED WELL. ANTIBIOTIC MEDICATION GIVEN.
[2018-11-24 23:52] VITALS: BP 149/54
--- NOTE | 2018-11-25 | NUR ---
CHECKED PATIENT AWAKE ON BED. HOB ELEVATED. WARM BLANKET FOR COMFORT. NO SIGN OF DISTRESS NOTED. FALL PRECAUTION IMPLEMENTED. CALL LIGHT WITHIN REACH. WILL CONTINUE TO MONITOR.
--- NOTE | 2018-11-25 01:30 | NUR ---
PATIENT TRANSPORTED TO IMAGING DEPARTMENT VIA WC BY IMAGING STAFF FOR CT OF ABDOMEN. PATIENT IN STABLE CONDITION.
--- NOTE | 2018-11-25 01:50 | NUR ---
PATIENT RETURNED FROM CT.PLACED PATIENT BACK TO BED AND PLACE IN COMFORTABLE POSITION. MAINTAIN QUIET ENVIRONMENT. WILL CONTINUE TO MONITOR.
--- NOTE | 2018-11-25 04:30 | NUR ---
AM CARE DONE. PATIENT HAD BM CHANGED LINEN AND PADS. PLACED PATIENT IN COMFORTABLE POSITION HOB ELEVATED.CALL LIGHT WITHIN REACH.
[2018-11-25] MEDS: BLOOD GLUCOSE MONITORING 1 DEV DEV FS SCH ×2 (06:05→12:08)
[2018-11-25] MEDS: INSULIN LISPRO SLIDING SCALE 100 UNITS/ML VIAL SUBQ PRN (06:06)
[2018-11-25] MEDS: LEVOTHYROXINE 0.088 MG TAB PO SCH (06:09)
--- NOTE | 2018-11-25 07:15 | NUR ---
GAVE REPORT TO AM SHIFT RN AT BEDSIDE FOR CONTINUITY OF CARE. CALL LIGHT WITHIN REACH. ALL NEEDS ATTENDED. PATIENT IN STABLE CONDITION.
[2018-11-25 07:16] LABS: BASOPHILS % (AUTO) 0.8 % (0.0-2.0); EOSINOPHILS # (AUTO) 0.1 K/uL (0-0.4); EOSINOPHILS % (AUTO) 2.9 % (0.0-4.0); HEMATOCRIT 33.1 % (36-48); HEMOGLOBIN 10.6 g/dL (12.0-16.0); LYMPHOCYTES % (AUTO) 20.5 % (20.5-51.1); MEAN CORPUSCULAR HEMOGLOBIN 30 pg (27-31); MEAN CORPUSCULAR HGB CONC 32 g/dL (33-37); MEAN CORPUSCULAR VOLUME 92.8 fL (80-94); MONOCYTES # (AUTO) 0.5 K/uL (0.8-1.0); MONOCYTES % (AUTO) 9.9 % (1.7-9.3); NEUTROPHILS # (AUTO) 3.2 K/uL (1.8-7.7); NEUTROPHILS % (AUTO) 65.9 % (42.2-75.2); PLATELET COUNT (AUTO) 116 K/uL (140-450); RED BLOOD CELL COUNT(AUTO) 3.57 MIL/uL (4.20-5.40); RED CELL DISTRIBUTION WIDTH 15.3 % (11.6-13.7); WHITE BLOOD COUNT (AUTO) 4.9 K/uL (4.8-10.8)
--- NOTE | 2018-11-25 07:21 | NUR ---
RECEIVED RE[ORT FROM KILN FURNITURE CASTER. PT IS ASLEEP LYING COMFORTABLY ON BED. WILL EXPLAIN PLAN OF CARE TO PATIENT. PT HAS RIGHT 22G ON THE WRIST AND RIGHT 20G ON THE FA. KVO FLUIDS RUNNING AT 10ML/HR. (+)LEFT ARM AV SHUNT WITH PALPABLE THRILL AND BRUIT. PER KILN FURNITURE CASTER PT IS AAOX3. WILL ASSESS WHEN PT IS AWAKE. FALL PRECAUTION APPLIED. CALL LIGHT WITHIN REACH. WILL CONTINUE TO MONITOR.
[2018-11-25 07:35] LABS: ANION GAP 10.8 (8-16); CARBON DIOXIDE 26.5 mmol/L (21-32); CHLORIDE 95 mmol/L (98-107); GLUCOSE 230 mg/dL (74-106); POTASSIUM 5.3 mmol/L (3.5-5.1); SODIUM SERUM 127 mmol/L (136-145); UREA NITROGEN, BLOOD 52 mg/dL (7-18)
[2018-11-25 07:39] LABS: CREATININE 4.7 mg/dL (0.6-1.3)
[2018-11-25 07:56] LABS: MAGNESIUM 2.2 mg/dL (1.8-2.4); PHOSPHORUS 6.2 mg/dL (2.5-4.9)
[2018-11-25 08:00] VITALS: BP 102/62
[2018-11-25] MEDS: ISOSORBIDE DINITRATE 10 MG TAB PO SCH (09:00)
[2018-11-25] MEDS: ATORVASTATIN 20 MG TAB PO SCH (09:00)
[2018-11-25] MEDS: amLODIPine 5 MG TAB PO SCH (09:00)
[2018-11-25] MEDS: PANTOPRAZOLE 40 MG INJ VIAL IVP SCH (09:00)
--- NOTE | 2018-11-25 09:00 | NUR ---
PT DIALYSIS STARTING NOW. PT IN STABLE CONDITION AT THIS TIME. PER DIALYSIS NURSE, ALL BP MEDS BEING HELD AT THIS TIME.
[2018-11-25] MEDS: PRIMIDONE 50 MG TAB PO SCH (10:40)
[2018-11-25] MEDS: ASPIRIN 81 MG TAB.CHEW PO SCH (10:40)
[2018-11-25] MEDS: TIMOLOL OP 0.5% 5 ML BTL OP SCH (10:41)
[2018-11-25] MEDS: DOCUSATE SODIUM 100 MG GELCAP PO SCH (10:41)
[2018-11-25] MEDS: ESCITALOPRAM 20 MG TAB PO SCH (10:41)
[2018-11-25] MEDS: BRIMONIDINE TARTRATE 0.2% OP 5 ML BTL OP SCH (10:42)
--- NOTE | 2018-11-25 12:00 | NUR ---
PT'S DIALYSIS IS COMPLETE AT THIS TIME. 250ML WERE REMOVED. PT IS IN STABLE CONDITION. NO BLEEDING NOTED AT AV SHUNT SITE. WILL CONTINUE TO MONITOR CLOSELY.
[2018-11-25] MEDS ORDERED: CIPR500T4 PO (12:52)
--- NOTE | 2018-11-25 13:26 | NUR ---
CALLED PT'S DAUGHTER MEGHAN TO NOTIFY HER THAT THE PT HAS BEEN DISCHARGED. PER MEGHAN, THE PT WILL BE PICKED UP AT 15:00-15:30.
[2018-11-25] MEDS: NACL 0.9% 1,000 ML IV SCH (14:55)
--- NOTE | 2018-11-25 16:50 | NUR ---
PT DISCHARGED HOME FOR SELF CARE. PT DISCHARGE PAPERWORK SIGNED. ALL PAPERWORK TAKEN WITH PT. PT TOOK ALL PERSONAL BELONGINGS WITH HER. IV REMOVED WITH TIP INTACT. PT AND FAMILY INSTRUCTED ON DISCHARGE INSTRUCTIONS PT AND FAMILY VERBALIZED UNDERSTANDING. VITAL SIGNS STABLE. PT STABLE AT THIS TIME. WRIST BAND REMOVED. INSTRUCTED TO FOLLOW-UP WITH APPT SCHEDULED ON THE AT 1515. ALL BELONGINGS TAKEN WITH PT.
== END 2018-11-25 16:50 | disposition home or self-care (01) | DRG 682 ==
LOC: MED 12:22 → MTU 15:00
PROVIDERS: ADMIT General Practice; ATTEND General Practice
PROC: 5A1D70Z Performance of Urinary Filtration, Intermittent, Less than 6 Hours Per Day (ICD-10-PCS; principal; 2018-11-23)
PROC: 5A1D70Z Performance of Urinary Filtration, Intermittent, Less than 6 Hours Per Day (ICD-10-PCS; 2018-11-25)
DX: N17.0 Acute kidney failure with tubular necrosis (principal); G93.41 Metabolic encephalopathy; I50.43 Acute on chronic combined systolic (congestive) and diastolic (congestive) heart failure; N39.0 Urinary tract infection, site not specified; E44.0 Moderate protein-calorie malnutrition; I13.2 Hypertensive heart and chronic kidney disease with heart failure and with stage 5 chronic kidney disease, or end stage renal disease; I42.2 Other hypertrophic cardiomyopathy; M80.08XA Age-related osteoporosis with current pathological fracture, vertebra(e), initial encounter for fracture; N18.6 End stage renal disease; E87.6 Hypokalemia; G90.8 Other disorders of autonomic nervous system; E11.22 Type 2 diabetes mellitus with diabetic chronic kidney disease; K21.9 Gastro-esophageal reflux disease without esophagitis; E78.5 Hyperlipidemia, unspecified; E03.9 Hypothyroidism, unspecified; G30.9 Alzheimer's disease, unspecified; F02.80 Dementia in other diseases classified elsewhere, unspecified severity, without behavioral disturbance, psychotic disturbance, mood disturbance, and anxiety; K31.9 Disease of stomach and duodenum, unspecified; Z68.21 Body mass index [BMI] 21.0-21.9, adult; Z99.2 Dependence on renal dialysis; Z90.710 Acquired absence of both cervix and uterus; Z96.649 Presence of unspecified artificial hip joint; Z86.73 Personal history of transient ischemic attack (TIA), and cerebral infarction without residual deficits; Z84.1 Family history of disorders of kidney and ureter; Z82.49 Family history of ischemic heart disease and other diseases of the circulatory system; Z83.2 Family history of diseases of the blood and blood-forming organs and certain disorders involving the immune mechanism
CPT/HCPCS: 36415; 70450; 71045; 71270; 74170; 80048; 80053; 80305; 81001; 82140; 82150; 82948; 83036; 83605; 83690; 83735; 83880; 84100; 84439; 84443; 84484; 85025; 85610; 85730; 87081; 87086; 90935; 93005; 93880; 97110; 97116; 97530; 99285; C1758; C9113; J0696; J1644; J1815; J3480; J7030; J7060; Q0092; Q9967

== ENCOUNTER 2019-07-22 12:27 | Inpatient (IN) | payer OTHER, BC ==
[~2019-07-22] VITALS: Ht 149.9 cm; Wt 47.2 kg
[~2019-07-22 12:27] MED LIST changes: +CIPR500T4 PO; -OMEP40EC1 PO; +OMEP40EC24 PO
[2019-07-22 12:30] VITALS: BP 150/78
[2019-07-22 14:15] LABS: HEMOGLOBIN 11.3 g/dL (12.0-16.0); MEAN CORPUSCULAR HEMOGLOBIN 32 pg (27-31); MEAN CORPUSCULAR HGB CONC 32 g/dL (33-37); MEAN CORPUSCULAR VOLUME 99.9 fL (80-94); PLATELET COUNT (AUTO) 106 K/uL (140-450); RED CELL DISTRIBUTION WIDTH 17.4 % (11.6-13.7); WHITE BLOOD COUNT (AUTO) 5.2 K/uL (4.8-10.8)
[2019-07-22 14:29] LABS: ANION GAP 17.9 (8-16); CARBON DIOXIDE 29.3 mmol/L (21-32); CHLORIDE 96 mmol/L (98-107); CREATININE 2.5 mg/dL (0.6-1.3); GLUCOSE 307 mg/dL (74-106); POTASSIUM 3.2 mmol/L (3.5-5.1); SODIUM SERUM 140 mmol/L (136-145); UREA NITROGEN, BLOOD 14 mg/dL (7-18)
[2019-07-22 14:35] LABS: ALBUMIN 3.1 g/dL (3.4-5.0); ASPARTATE AMINOTRANSFERASE 21 U/L (15-37); TOTAL BILIRUBIN 1.2 mg/dL (0.0-1.0)
[2019-07-22 14:42] LABS: LYMPHOCYTES % (MANUAL) 14 % (20-46); MONOCYTES % (MANUAL) 3 % (5-12)
[2019-07-22] MEDS ORDERED: ACETAMINOPHEN 325 MG TAB PO PRN (15:55)
[2019-07-22] MEDS ORDERED: ONDANSETRON 4 MG/2 ML VIAL IM/IVP PRN (15:55)
[2019-07-22] MEDS ORDERED: HYDROcodone/APAP 7.5/325 MG 1 TAB PO PRN (15:55)
[2019-07-22] MEDS ORDERED: DOCUSATE SODIUM 100 MG GELCAP PO PRN (15:55)
[2019-07-22] MEDS ORDERED: MEDICATION REC. PHARMACY CONS. 1 EA MISC MC PRN (16:10)
[2019-07-22 16:25] VITALS: BP 148/62
[2019-07-22] MEDS ORDERED: CARV3.122 PO (16:50)
[2019-07-22] MEDS ORDERED: INSU100S22 SUBQ (16:50)
[2019-07-22] MEDS ORDERED: HUM SUBQ (16:50)
[2019-07-22 16:51] LABS: CHOL/HDL RATIO 3.3 (1-4.5); FREE T4 (FREE THYROXINE) 1.13 ng/dL (0.76-1.46); MAGNESIUM 1.9 mg/dL (1.8-2.4); PHOSPHORUS 2.5 mg/dL (2.5-4.9); THYROID STIMULATING HORMONE 12.74 uIU/mL (0.34-3.74)
[2019-07-22] MEDS ORDERED: CALCIUM (16:51)
[2019-07-22] MEDS ORDERED: TRAM50TA1 PO (16:51)
[2019-07-22 16:53] LABS: PROTHROMBIN TIME 12.1 secs (10.8-13.4)
[2019-07-22] MEDS ORDERED: MECLIZINE 25 MG TAB PO PRN (17:15)
[2019-07-22 20:05] VITALS: BP_SYST 128; BP_SYST 148; BP_DIAS 68; BP_DIAS 73
[2019-07-22] MEDS: CARVEDILOL 3.125 MG TAB PO SCH (21:00)
[2019-07-22] MEDS: INSULIN LANTUS 100 UNITS/ML 10 ML VIAL SUBQ SCH (22:18)
[2019-07-23 00:10] VITALS: BP 128/73
[2019-07-23 04:20] VITALS: BP 140/70
[2019-07-23] MEDS: LEVOTHYROXINE 0.075 MG TAB PO SCH (07:06)
[2019-07-23 07:46] LABS: HEMOGLOBIN 11.1 g/dL (12.0-16.0); MEAN CORPUSCULAR HEMOGLOBIN 32 pg (27-31); MEAN CORPUSCULAR HGB CONC 33 g/dL (33-37); MEAN CORPUSCULAR VOLUME 98.8 fL (80-94); PLATELET COUNT (AUTO) 89 K/uL (140-450); RED BLOOD CELL COUNT(AUTO) 3.44 MIL/uL (4.20-5.40); RED CELL DISTRIBUTION WIDTH 17.1 % (11.6-13.7); WHITE BLOOD COUNT (AUTO) 4.5 K/uL (4.8-10.8)
[2019-07-23 08:00] VITALS: BP 141/70
[2019-07-23 08:32] LABS: SODIUM SERUM 143 mmol/L (136-145)
[2019-07-23 08:34] LABS: ANION GAP 13.8 (8-16); CHLORIDE 99 mmol/L (98-107); GLUCOSE 118 mg/dL (74-106); POTASSIUM 2.8 mmol/L (3.5-5.1)
[2019-07-23 08:35] LABS: UREA NITROGEN, BLOOD 16 mg/dL (7-18)
[2019-07-23 09:08] LABS: T4 (THYROXINE) 6.3 ug/dL (4.5-12.0)
[2019-07-23] MEDS ORDERED: POTASSIUM CHLORIDE 40 MEQ, LIDOCAINE MPF 1% 25 MG in NACL 0.9% 250 ML IV ONE (09:25)
[2019-07-23] MEDS: amLODIPine 5 MG TAB PO SCH (09:39)
[2019-07-23] MEDS: ATORVASTATIN 20 MG TAB PO SCH (09:39)
[2019-07-23] MEDS: POTASSIUM CHLORIDE 10 MEQ TABER PO SCH ×2 (09:39→09:47)
[2019-07-23] MEDS: CARVEDILOL 3.125 MG TAB PO SCH (09:39)
[2019-07-23 09:40] LABS: MONOCYTES % (MANUAL) 10 % (5-12)
[2019-07-23 12:00] VITALS: BP 115/50
[2019-07-23] MEDS ORDERED: GLUCAGON 1 MG VIAL IVP PRN (15:45)
[2019-07-23 16:00] VITALS: BP 124/86
[2019-07-23 16:13] LABS: LYMPHOCYTES % (MANUAL) 15 % (20-46)
[2019-07-23 16:24] LABS: CARBON DIOXIDE 32.7 mmol/L (21-32); CHLORIDE 98 mmol/L (98-107); CREATININE 3.2 mg/dL (0.6-1.3); GLUCOSE 229 mg/dL (74-106); POTASSIUM 3.7 mmol/L (3.5-5.1); SODIUM SERUM 137 mmol/L (136-145); UREA NITROGEN, BLOOD 20 mg/dL (7-18)
[2019-07-23] MEDS: BLOOD GLUCOSE MONITORING 1 DEV DEV FS SCH ×2 (17:20→21:00)
[2019-07-23] MEDS: INSULIN LISPRO SLIDING SCALE 100 UNITS/ML VIAL SUBQ PRN (17:32)
[2019-07-23] MEDS: INSULIN LANTUS 100 UNITS/ML 10 ML VIAL SUBQ SCH (21:00)
[2019-07-23] MEDS ORDERED: PIPERACILLIN/TAZOBACTAM 2.25 GM in DEXTROSE 5% 50 ML IV SCH (21:00)
[2019-07-24] MEDS: CARVEDILOL 3.125 MG TAB PO SCH ×3 (03:48→22:17)
[2019-07-24] MEDS: DEXTROSE 50% 50 ML SYR IVP PRN (07:15)
[2019-07-24] MEDS: LEVOTHYROXINE 0.075 MG TAB PO SCH (07:16)
[2019-07-24] MEDS: BLOOD GLUCOSE MONITORING 1 DEV DEV FS SCH ×4 (07:40→22:15)
[2019-07-24 08:00] VITALS: BP 125/48
[2019-07-24 08:19] LABS: BASOPHILS % (AUTO) 0.8 % (0.0-2.0); EOSINOPHILS # (AUTO) 0.1 K/uL (0-0.4); EOSINOPHILS % (AUTO) 1.3 % (0.0-4.0); HEMATOCRIT 32.3 % (36-48); HEMOGLOBIN 10.5 g/dL (12.0-16.0); LYMPHOCYTES # (AUTO) 0.6 K/uL (2.5-16.5); LYMPHOCYTES % (AUTO) 14.2 % (20.5-51.1); MEAN CORPUSCULAR HEMOGLOBIN 32 pg (27-31); MEAN CORPUSCULAR HGB CONC 32 g/dL (33-37); MEAN CORPUSCULAR VOLUME 98.8 fL (80-94); MONOCYTES # (AUTO) 0.4 K/uL (0.8-1.0); MONOCYTES % (AUTO) 10.5 % (1.7-9.3); NEUTROPHILS % (AUTO) 73.2 % (42.2-75.2); PLATELET COUNT (AUTO) 93 K/uL (140-450); RED BLOOD CELL COUNT(AUTO) 3.27 MIL/uL (4.20-5.40); RED CELL DISTRIBUTION WIDTH 17.3 % (11.6-13.7); WHITE BLOOD COUNT (AUTO) 4.2 K/uL (4.8-10.8)
[2019-07-24 08:21] LABS: MAGNESIUM 1.7 mg/dL (1.8-2.4); PHOSPHORUS 1.9 mg/dL (2.5-4.9)
[2019-07-24 08:27] LABS: UREA NITROGEN, BLOOD 10 mg/dL (7-18)
[2019-07-24 08:40] LABS: ANION GAP 8.3 (8-16); CARBON DIOXIDE 33.1 mmol/L (21-32); CHLORIDE 103 mmol/L (98-107); POTASSIUM 3.4 mmol/L (3.5-5.1); SODIUM SERUM 141 mmol/L (136-145)
[2019-07-24] MEDS: amLODIPine 5 MG TAB PO SCH (08:41)
[2019-07-24] MEDS: LACTOBACILLUS RHAMNOSUS GG 1 EACH CAP PO SCH (08:41)
[2019-07-24] MEDS: ATORVASTATIN 20 MG TAB PO SCH (08:41)
[2019-07-24] MEDS: PIPERACILLIN/TAZOBACTAM 2.25 GM in DEXTROSE 5% 50 ML IV SCH ×2 (08:42→22:16)
[2019-07-24 08:49] LABS: GLUCOSE 49 mg/dL (74-106)
[2019-07-24] MEDS ORDERED: LACTOBACILLUS RHAMNOSUS GG 1 EACH CAP PO SCH (09:00)
[2019-07-24] MEDS ORDERED: MAGNESIUM OXIDE 400 MG TAB PO SCH (10:30)
[2019-07-24 12:00] VITALS: BP 120/51
[2019-07-24] MEDS ORDERED: PIPERACILLIN/TAZOBACTAM 3.375 GM in DEXTROSE 5% 50 ML IV SCH (13:00)
[2019-07-24 16:00] VITALS: BP 122/49
[2019-07-24 20:00] VITALS: BP 114/40
[2019-07-24] MEDS ORDERED: INSULIN LANTUS 100 UNITS/ML 10 ML VIAL SUBQ SCH (21:00)
[2019-07-24] MEDS: INSULIN LISPRO SLIDING SCALE 100 UNITS/ML VIAL SUBQ PRN (22:23)
[2019-07-25] VITALS: BP 104/38
[2019-07-25 04:00] VITALS: BP 117/46
[2019-07-25] MEDS: DEXTROSE 50% 50 ML SYR IVP PRN (06:50)
[2019-07-25] MEDS: BLOOD GLUCOSE MONITORING 1 DEV DEV FS SCH ×4 (06:50→20:46)
[2019-07-25] MEDS: LEVOTHYROXINE 0.075 MG TAB PO SCH (06:52)
[2019-07-25 07:34] LABS: BASOPHILS % (AUTO) 0.9 % (0.0-2.0); EOSINOPHILS # (AUTO) 0.1 K/uL (0-0.4); EOSINOPHILS % (AUTO) 0.9 % (0.0-4.0); HEMATOCRIT 37.2 % (36-48); HEMOGLOBIN 11.8 g/dL (12.0-16.0); LYMPHOCYTES # (AUTO) 0.5 K/uL (2.5-16.5); LYMPHOCYTES % (AUTO) 9.9 % (20.5-51.1); MEAN CORPUSCULAR HEMOGLOBIN 32 pg (27-31); MEAN CORPUSCULAR HGB CONC 32 g/dL (33-37); MEAN CORPUSCULAR VOLUME 99.9 fL (80-94); MONOCYTES # (AUTO) 0.4 K/uL (0.8-1.0); MONOCYTES % (AUTO) 7.8 % (1.7-9.3); NEUTROPHILS # (AUTO) 4.3 K/uL (1.8-7.7); NEUTROPHILS % (AUTO) 80.5 % (42.2-75.2); PLATELET COUNT (AUTO) 117 K/uL (140-450); RED BLOOD CELL COUNT(AUTO) 3.72 MIL/uL (4.20-5.40); RED CELL DISTRIBUTION WIDTH 17.3 % (11.6-13.7); WHITE BLOOD COUNT (AUTO) 5.4 K/uL (4.8-10.8)
[2019-07-25 08:00] VITALS: BP 133/51
[2019-07-25] MEDS: amLODIPine 5 MG TAB PO SCH (09:00)
[2019-07-25] MEDS: CARVEDILOL 3.125 MG TAB PO SCH ×2 (09:00→20:43)
[2019-07-25 10:32] LABS: ANION GAP 10.6 (8-16); CARBON DIOXIDE 32.2 mmol/L (21-32); CHLORIDE 101 mmol/L (98-107); CREATININE 2.8 mg/dL (0.6-1.3); GLUCOSE 59 mg/dL (74-106); POTASSIUM 3.8 mmol/L (3.5-5.1); SODIUM SERUM 140 mmol/L (136-145); UREA NITROGEN, BLOOD 19 mg/dL (7-18)
[2019-07-25 10:40] LABS: MAGNESIUM 1.9 mg/dL (1.8-2.4); PHOSPHORUS 2.3 mg/dL (2.5-4.9)
[2019-07-25] MEDS: LACTOBACILLUS RHAMNOSUS GG 1 EACH CAP PO SCH (11:03)
[2019-07-25] MEDS: ATORVASTATIN 20 MG TAB PO SCH (11:03)
[2019-07-25] MEDS: PIPERACILLIN/TAZOBACTAM 2.25 GM in DEXTROSE 5% 50 ML IV SCH ×2 (11:03→20:38)
[2019-07-25 12:00] VITALS: BP 127/51
[2019-07-25 16:00] VITALS: BP 126/43
[2019-07-25] MEDS: INSULIN LISPRO SLIDING SCALE 100 UNITS/ML VIAL SUBQ PRN ×2 (17:43→20:53)
[2019-07-25 20:00] VITALS: BP 112/38
[2019-07-26] VITALS: BP 127/44
[2019-07-26 04:00] VITALS: BP 173/76
[2019-07-26] MEDS: LEVOTHYROXINE 0.075 MG TAB PO SCH (05:56)
[2019-07-26] MEDS: BLOOD GLUCOSE MONITORING 1 DEV DEV FS SCH ×4 (06:01→21:58)
[2019-07-26] MEDS: INSULIN LISPRO SLIDING SCALE 100 UNITS/ML VIAL SUBQ PRN ×4 (06:13→22:46)
[2019-07-26 07:10] LABS: BASOPHILS # (AUTO) 0.1 K/uL (0.00-0.22); BASOPHILS % (AUTO) 1.2 % (0.0-2.0); EOSINOPHILS % (AUTO) 0.7 % (0.0-4.0); HEMATOCRIT 33.8 % (36-48); HEMOGLOBIN 10.9 g/dL (12.0-16.0); LYMPHOCYTES # (AUTO) 0.6 K/uL (2.5-16.5); LYMPHOCYTES % (AUTO) 11.4 % (20.5-51.1); MEAN CORPUSCULAR HEMOGLOBIN 32 pg (27-31); MEAN CORPUSCULAR HGB CONC 32 g/dL (33-37); MEAN CORPUSCULAR VOLUME 99.7 fL (80-94); MONOCYTES # (AUTO) 0.5 K/uL (0.8-1.0); MONOCYTES % (AUTO) 10.3 % (1.7-9.3); NEUTROPHILS # (AUTO) 3.9 K/uL (1.8-7.7); NEUTROPHILS % (AUTO) 76.4 % (42.2-75.2); PLATELET COUNT (AUTO) 116 K/uL (140-450); RED BLOOD CELL COUNT(AUTO) 3.39 MIL/uL (4.20-5.40); RED CELL DISTRIBUTION WIDTH 17.4 % (11.6-13.7); WHITE BLOOD COUNT (AUTO) 5.1 K/uL (4.8-10.8)
[2019-07-26 07:29] LABS: ANION GAP 11.3 (8-16); CARBON DIOXIDE 30.7 mmol/L (21-32); CHLORIDE 97 mmol/L (98-107); CREATININE 2.4 mg/dL (0.6-1.3); GLUCOSE 263 mg/dL (74-106); SODIUM SERUM 135 mmol/L (136-145); UREA NITROGEN, BLOOD 27 mg/dL (7-18)
[2019-07-26 07:36] LABS: MAGNESIUM 1.7 mg/dL (1.8-2.4); PHOSPHORUS 1.6 mg/dL (2.5-4.9)
[2019-07-26 08:00] VITALS: BP 117/39
[2019-07-26] MEDS: CARVEDILOL 3.125 MG TAB PO SCH ×2 (08:48→22:01)
[2019-07-26] MEDS: PIPERACILLIN/TAZOBACTAM 2.25 GM in DEXTROSE 5% 50 ML IV SCH ×2 (08:49→22:08)
[2019-07-26] MEDS: ATORVASTATIN 20 MG TAB PO SCH (08:49)
[2019-07-26] MEDS: amLODIPine 5 MG TAB PO SCH (08:49)
[2019-07-26] MEDS: LACTOBACILLUS RHAMNOSUS GG 1 EACH CAP PO SCH (08:49)
[2019-07-26] MEDS ORDERED: GLUC-805 FS (08:54)
[2019-07-26] MEDS ORDERED: PIPE50SO5 IV (08:54)
[2019-07-26] MEDS ORDERED: LACT10CA PO (08:54)
[2019-07-26] MEDS ORDERED: SODIUM PHOS / POTASSIUM PHOS 1 PKT PDR PO SCH (09:19)
[2019-07-26] MEDS ORDERED: MAGNESIUM OXIDE 400 MG TAB PO SCH (09:30)
[2019-07-26 12:00] VITALS: BP 115/41
[2019-07-26 16:00] VITALS: BP 117/61
[2019-07-26] MEDS: SODIUM PHOS / POTASSIUM PHOS 1 PKT PDR PO SCH (22:02)
[2019-07-27 06:00] VITALS: BP 139/52
[2019-07-27] MEDS: LEVOTHYROXINE 0.075 MG TAB PO SCH (06:35)
[2019-07-27] MEDS: BLOOD GLUCOSE MONITORING 1 DEV DEV FS SCH ×4 (06:42→19:37)
[2019-07-27] MEDS: INSULIN LISPRO SLIDING SCALE 100 UNITS/ML VIAL SUBQ PRN ×4 (06:50→19:33)
[2019-07-27 07:42] LABS: BASOPHILS % (AUTO) 1.1 % (0.0-2.0); EOSINOPHILS # (AUTO) 0.1 K/uL (0-0.4); EOSINOPHILS % (AUTO) 1.8 % (0.0-4.0); HEMATOCRIT 29.9 % (36-48); HEMOGLOBIN 9.8 g/dL (12.0-16.0); LYMPHOCYTES # (AUTO) 0.7 K/uL (2.5-16.5); LYMPHOCYTES % (AUTO) 17.2 % (20.5-51.1); MEAN CORPUSCULAR HEMOGLOBIN 32 pg (27-31); MEAN CORPUSCULAR HGB CONC 33 g/dL (33-37); MEAN CORPUSCULAR VOLUME 98.6 fL (80-94); MONOCYTES # (AUTO) 0.5 K/uL (0.8-1.0); MONOCYTES % (AUTO) 11.9 % (1.7-9.3); NEUTROPHILS # (AUTO) 2.8 K/uL (1.8-7.7); PLATELET COUNT (AUTO) 118 K/uL (140-450); RED BLOOD CELL COUNT(AUTO) 3.03 MIL/uL (4.20-5.40); RED CELL DISTRIBUTION WIDTH 17.2 % (11.6-13.7); WHITE BLOOD COUNT (AUTO) 4.1 K/uL (4.8-10.8)
[2019-07-27 08:00] VITALS: BP 109/43
[2019-07-27 08:05] LABS: ANION GAP 11.3 (8-16); CARBON DIOXIDE 30.7 mmol/L (21-32); CHLORIDE 98 mmol/L (98-107); GLUCOSE 183 mg/dL (74-106); SODIUM SERUM 136 mmol/L (136-145); UREA NITROGEN, BLOOD 35 mg/dL (7-18)
[2019-07-27 08:18] LABS: MAGNESIUM 1.8 mg/dL (1.8-2.4)
[2019-07-27] MEDS: CARVEDILOL 3.125 MG TAB PO SCH ×2 (09:00→19:31)
[2019-07-27] MEDS: amLODIPine 5 MG TAB PO SCH (09:00)
[2019-07-27] MEDS: ATORVASTATIN 20 MG TAB PO SCH (09:20)
[2019-07-27] MEDS ORDERED: NACL 0.9% 250 ML IV SCH (09:20)
[2019-07-27] MEDS: LACTOBACILLUS RHAMNOSUS GG 1 EACH CAP PO SCH (09:20)
[2019-07-27] MEDS: PIPERACILLIN/TAZOBACTAM 2.25 GM in DEXTROSE 5% 50 ML IV SCH (09:21)
[2019-07-27] MEDS: SODIUM PHOS / POTASSIUM PHOS 1 PKT PDR PO SCH ×2 (09:21→19:30)
[2019-07-27 16:00] VITALS: BP 118/43
[2019-07-27] MEDS ORDERED: LEVO0.083 PO (17:36)
== END 2019-07-27 18:50 | DRG 177 ==
LOC: MED 12:27 → MTU 15:53
PROVIDERS: ADMIT General Practice; ATTEND General Practice
PROC: 5A1D70Z Performance of Urinary Filtration, Intermittent, Less than 6 Hours Per Day (ICD-10-PCS; 2019-07-23)
PROC: 5A1D70Z Performance of Urinary Filtration, Intermittent, Less than 6 Hours Per Day (ICD-10-PCS; 2019-07-25)
PROC: 5A1D70Z Performance of Urinary Filtration, Intermittent, Less than 6 Hours Per Day (ICD-10-PCS; principal; 2019-07-27)
DX: J69.0 Pneumonitis due to inhalation of food and vomit (principal); N17.0 Acute kidney failure with tubular necrosis; I50.43 Acute on chronic combined systolic (congestive) and diastolic (congestive) heart failure; G93.41 Metabolic encephalopathy; N18.6 End stage renal disease; I21.A1 Myocardial infarction type 2; E43 Unspecified severe protein-calorie malnutrition; I13.2 Hypertensive heart and chronic kidney disease with heart failure and with stage 5 chronic kidney disease, or end stage renal disease; I42.0 Dilated cardiomyopathy; E87.6 Hypokalemia; Z99.2 Dependence on renal dialysis; E03.9 Hypothyroidism, unspecified; E11.22 Type 2 diabetes mellitus with diabetic chronic kidney disease; E11.649 Type 2 diabetes mellitus with hypoglycemia without coma; E78.5 Hyperlipidemia, unspecified; E83.39 Other disorders of phosphorus metabolism; E83.42 Hypomagnesemia; G30.9 Alzheimer's disease, unspecified; F02.80 Dementia in other diseases classified elsewhere, unspecified severity, without behavioral disturbance, psychotic disturbance, mood disturbance, and anxiety; I25.10 Atherosclerotic heart disease of native coronary artery without angina pectoris; M81.0 Age-related osteoporosis without current pathological fracture; W01.0XXA Fall on same level from slipping, tripping and stumbling without subsequent striking against object, initial encounter; Z96.649 Presence of unspecified artificial hip joint; D63.1 Anemia in chronic kidney disease; D69.6 Thrombocytopenia, unspecified; F01.50 Vascular dementia, unspecified severity, without behavioral disturbance, psychotic disturbance, mood disturbance, and anxiety; Y93.01 Activity, walking, marching and hiking; Z82.49 Family history of ischemic heart disease and other diseases of the circulatory system; Z83.3 Family history of diabetes mellitus; Z86.73 Personal history of transient ischemic attack (TIA), and cerebral infarction without residual deficits; Z90.710 Acquired absence of both cervix and uterus; Z79.82 Long term (current) use of aspirin; Z79.4 Long term (current) use of insulin; Z79.899 Other long term (current) drug therapy; Z68.21 Body mass index [BMI] 21.0-21.9, adult; Y92.89 Other specified places as the place of occurrence of the external cause; Y99.8 Other external cause status
CPT/HCPCS: 36415; 70450; 71045; 72125; 80048; 80053; 82140; 82150; 82948; 83036; 83690; 83735; 83880; 84100; 84436; 84439; 84443; 84479; 84484; 85025; 85610; 85730; 87081; 90935; 92610; 93005; 93880; 97110; 97116; 97530; 99291; J1815; J2543; J7030; J7060; Q0092

== ENCOUNTER 2019-08-09 12:24 | Inpatient (IN) | payer OTHER, BC ==
[~2019-08-09] VITALS: Ht 165.1 cm; Wt 46.3 kg
[~2019-08-09 12:24] MED LIST changes: -BRIM5SOL2 BOTH EYES; +CALCIUM; +CARV3.122 PO; -CIPR500T4 PO; -DONE5TAB6 PO; -ESCI10TA PO; -FERR-15 PO; +GLUC-805 FS; +HUM SUBQ; -INSU100S45 SUBQ; -ISOS10TA9 PO; +LACT10CA PO; -LANTUS SUBQ; -NEP PO; -OMEP40EC24 PO; -PHO667 PO; +PIPE50SO5 IV; -PRIM250T70 PO; +TRAM50TA1 PO
--- NOTE | 2019-08-09 12:24 | NUR ---
Patient BIBA ALS, transferred to bed 1. RN evaluating patient at bedside.
[2019-08-09 12:25] VITALS: BP 110/46
[2019-08-09] MEDS ORDERED: VITA1TAB44 PO (12:50)
[2019-08-09] MEDS ORDERED: PHO667 PO (12:50)
[2019-08-09] MEDS ORDERED: AMLO10TA PO (12:50)
[2019-08-09] MEDS ORDERED: FOLI1TAB90 PO (12:50)
[2019-08-09] MEDS ORDERED: ESCI10TA PO (12:50)
[2019-08-09] MEDS ORDERED: DONE10TA10 PO (12:50)
--- NOTE | 2019-08-09 13:14 | NUR ---
PT BIB EMS FOR C/O LEFT HAND PAIN X 1 DAY. PT STATES PAIN 4/10 AT THIS TIME AND SAYS HER HAND IS "SORE". SWELLING NOTED TO LEFT HAND. FAMILY DENIES INJURY TO HAND. PT HAS A SHUNT IN L ARM. FAMILY STATES PT FELL EARLIER IN THE WEEK BUT DENIES INJURY. PT DENIES CP AND SOB. ER MD TO SEE PT. SON IN LAW AND GRANDDAUGHTER AT [facility]. HX: DEMENTIA, HTN, DM, DIALYSIS RX: FAMILY CANNOT RECALL MEDICATION AT THIS TIME MY
[2019-08-09 13:31] LABS: BASOPHILS # (AUTO) 0.1 K/uL (0.00-0.22); BASOPHILS % (AUTO) 0.8 % (0.0-2.0); EOSINOPHILS # (AUTO) 0.1 K/uL (0-0.4); EOSINOPHILS % (AUTO) 0.8 % (0.0-4.0); HEMATOCRIT 25.5 % (36-48); HEMOGLOBIN 8.5 g/dL (12.0-16.0); LYMPHOCYTES # (AUTO) 0.4 K/uL (2.5-16.5); LYMPHOCYTES % (AUTO) 7.3 % (20.5-51.1); MEAN CORPUSCULAR HEMOGLOBIN 33 pg (27-31); MEAN CORPUSCULAR HGB CONC 33 g/dL (33-37); MEAN CORPUSCULAR VOLUME 99.5 fL (80-94); MONOCYTES # (AUTO) 0.4 K/uL (0.8-1.0); MONOCYTES % (AUTO) 7.2 % (1.7-9.3); NEUTROPHILS # (AUTO) 5.2 K/uL (1.8-7.7); NEUTROPHILS % (AUTO) 83.9 % (42.2-75.2); PLATELET COUNT (AUTO) 130 K/uL (140-450); RED BLOOD CELL COUNT(AUTO) 2.57 MIL/uL (4.20-5.40); RED CELL DISTRIBUTION WIDTH 16.9 % (11.6-13.7); WHITE BLOOD COUNT (AUTO) 6.2 K/uL (4.8-10.8)
[2019-08-09 13:50] LABS: PROTHROMBIN TIME 10.6 secs (10.8-13.4)
[2019-08-09 13:52] LABS: ANION GAP 10.5 (8-16); CARBON DIOXIDE 35.9 mmol/L (21-32); CHLORIDE 100 mmol/L (98-107); CREATININE 1.5 mg/dL (0.6-1.3); GLUCOSE 111 mg/dL (74-106); POTASSIUM 3.4 mmol/L (3.5-5.1); SODIUM SERUM 143 mmol/L (136-145); UREA NITROGEN, BLOOD 13 mg/dL (7-18)
[2019-08-09 13:53] LABS: ALBUMIN 2.7 g/dL (3.4-5.0); ASPARTATE AMINOTRANSFERASE 20 U/L (15-37); TOTAL BILIRUBIN 0.7 mg/dL (0.0-1.0)
--- NOTE | 2019-08-09 14:58 | NUR ---
Dr. Elias Mooney agreed to serve as the orthopaedic consult.
[2019-08-09] MEDS ORDERED: ONDANSETRON 4 MG/2 ML VIAL IM/IVP PRN (15:40)
[2019-08-09] MEDS ORDERED: LORazepam 2 MG/ML VIAL IM/IVP PRN (15:40)
[2019-08-09] MEDS ORDERED: HYDROcodone/APAP 5/325 MG 1 TAB TAB PO PRN (15:40)
[2019-08-09] MEDS ORDERED: DOCUSATE SODIUM 100 MG GELCAP PO PRN (15:40)
[2019-08-09] MEDS ORDERED: MORPHINE SULFATE 2 MG/ML SYR IVP PRN (15:40)
[2019-08-09] MEDS ORDERED: ACETAMINOPHEN 325 MG TAB PO PRN (15:40)
--- NOTE | 2019-08-09 16:31 | NUR ---
PT SLEEPING IN BED, ABLE TO VISUALIZE RISE AND FALL OF CHEST. WILL CONTINUE TO MONITOR.
[2019-08-09 17:00] VITALS: BP 144/39
--- NOTE | 2019-08-09 17:00 | NUR ---
PT ARRIVED ON THE UNIT WITH 2 ER NURSES. PT IS AWAKE AND ORIENTED X 2. UNABLE TO RECALL WHAT HAPPENED AND WHERE SHE IS. IV ON R WRIST 22G SL. NO MEDS GIVEN IN ER. L SHOULDER XRAY DONE, SHOWING FRACTURE. SKIN INTACT. NC 2L O2. WILL CONTINUE TO MONITOR PT. Addendum: 08/09/19 at 1918 by Britni Banuelos RN MRSA SWABBING DONE.
--- NOTE | 2019-08-09 17:04 | NUR ---
Patient will be admitted to care of DR CALIXTO. Admited to TELE. Will go to room 124A. Belongings list completed. Report to ODETTE PETERSON.
[2019-08-09 17:06] LABS: PHOSPHORUS 2.7 mg/dL (2.5-4.9)
[2019-08-09 17:07] LABS: THYROID STIMULATING HORMONE 3.45 uIU/mL (0.34-3.74)
[2019-08-09] MEDS ORDERED: DEXTROSE 50% 50 ML SYR IVP PRN (17:40)
--- NOTE | 2019-08-09 17:50 | NUR ---
CT IS HERE TO TAKE PT FOR CT HEAD. PT WHEELED IN A WHEELCHAIR. WILL AWAIT HER RETURN.
--- NOTE | 2019-08-09 18:10 | NUR ---
REFUSED DINNER. RESTING COMFORTABLY.
--- NOTE | 2019-08-09 18:30 | NUR ---
BLE DOPPLER BEING DONE.
--- NOTE | 2019-08-09 19:38 | NUR ---
ENDORSED PT AND ADMISSION TO THE ORGAN PIPE FINISHER NURSE. PT IN STABLE CONDITION.
--- NOTE | 2019-08-09 19:39 | NUR ---
RECEIVED BEDSIDE REPORT FROM DAY RN. [place] SPEAKING ONLY. AAO X1-2. PT IS ON NC 2L O2. RESPIRATIONS ARE EQUAL AND UNLABORED. LUNG SOUNDS ARE CLEAR. CC S/P MECH FALL. PT REPORT CANNOT EXPLOSIVES WORKER L ARM AGAINST GRAVITY. SENSATION IS INTACT. CAP REFILL< 3 SKIN IS WARM TO THE TOUCH. PT ABLE TO MOVE FINGERS ON L HAND. PT WITH SHERRY AV FISTULA. IV ON R WRIST 22 IVF TKO. ON FLUID RESTRICTION OF 1500ML/DAILY. ON FALL PRECAUTION. CALL LIGHT IS WITHIN. WILL CONTINUE TO MONITOR.
[2019-08-09] MEDS: NACL 0.9% 1,000 ML IV SCH (20:10)
--- NOTE | 2019-08-09 20:30 | NUR ---
VSS ARE STABLE. BLOOD SUGAR IS 119. PT IS EATING DINNER. NO DISCOMFORT AT THIS TIME.
[2019-08-09] MEDS: BLOOD GLUCOSE MONITORING 1 DEV DEV FS SCH (20:59)
[2019-08-09 21:57] VITALS: BP 136/35
--- NOTE | 2019-08-09 22:45 | NUR ---
PT IS SLEEPING COMFORTABLY IN BED. ALL SAFETY MEASURES ARE IN PLACE. CALL LIGHT IS WITHIN REACH
[2019-08-10] VITALS: BP 112/34
--- NOTE | 2019-08-10 | NUR ---
VITAL SIGNS ARE WITHIN NORMAL LIMITS. ALL NEEDS MET AT THIS TIME. CALL LIGHT IS WITHIN REACH.
--- NOTE | 2019-08-10 02:14 | NUR ---
PATIENT IS RESTING COMFORTABLY IN BED WATCHING TV. DENIES PAIN. NO S/S OF DISTRESS. SAFETY MEASURES ARE IN PLACE. CALL LIGHT IS WITHIN REACH.
[2019-08-10 04:00] VITALS: BP 126/38
--- NOTE | 2019-08-10 04:15 | NUR ---
VITAL SIGNS ARE WITHIN NORMAL LIMITS. ALL NEEDS MET AT THIS TIME. CALL LIGHT IS WITHIN REACH.
[2019-08-10 05:59] LABS: BASOPHILS # (AUTO) 0.1 K/uL (0.00-0.22); BASOPHILS % (AUTO) 1.1 % (0.0-2.0); EOSINOPHILS % (AUTO) 0.9 % (0.0-4.0); HEMATOCRIT 23.5 % (36-48); HEMOGLOBIN 7.7 g/dL (12.0-16.0); LYMPHOCYTES # (AUTO) 0.5 K/uL (2.5-16.5); LYMPHOCYTES % (AUTO) 11.2 % (20.5-51.1); MEAN CORPUSCULAR HEMOGLOBIN 33 pg (27-31); MEAN CORPUSCULAR HGB CONC 33 g/dL (33-37); MEAN CORPUSCULAR VOLUME 100.5 fL (80-94); MONOCYTES # (AUTO) 0.5 K/uL (0.8-1.0); MONOCYTES % (AUTO) 11.3 % (1.7-9.3); NEUTROPHILS # (AUTO) 3.6 K/uL (1.8-7.7); NEUTROPHILS % (AUTO) 75.5 % (42.2-75.2); PLATELET COUNT (AUTO) 125 K/uL (140-450); RED BLOOD CELL COUNT(AUTO) 2.33 MIL/uL (4.20-5.40); RED CELL DISTRIBUTION WIDTH 16.8 % (11.6-13.7); WHITE BLOOD COUNT (AUTO) 4.8 K/uL (4.8-10.8)
[2019-08-10 06:40] LABS: ANION GAP 12.2 (8-16); CARBON DIOXIDE 32.4 mmol/L (21-32); CHLORIDE 101 mmol/L (98-107); CREATININE 2.2 mg/dL (0.6-1.3); GLUCOSE 179 mg/dL (74-106); POTASSIUM 3.6 mmol/L (3.5-5.1); SODIUM SERUM 142 mmol/L (136-145); UREA NITROGEN, BLOOD 18 mg/dL (7-18)
[2019-08-10] MEDS: LEVOTHYROXINE 0.075 MG TAB PO SCH (06:43)
[2019-08-10 06:46] LABS: CHOL/HDL RATIO 3.7 (1-4.5); PHOSPHORUS 3.7 mg/dL (2.5-4.9)
[2019-08-10] MEDS: BLOOD GLUCOSE MONITORING 1 DEV DEV FS SCH ×4 (06:48→21:48)
[2019-08-10] MEDS: INSULIN LISPRO SLIDING SCALE 100 UNITS/ML VIAL SUBQ PRN ×3 (06:48→21:50)
[2019-08-10 07:07] LABS: FOLIC ACID 5.7 ng/mL (>3.0)
--- NOTE | 2019-08-10 07:23 | NUR ---
GAVE BEDSIDE REPORT. PT ENDORSED IN STABLE CONDITION
--- NOTE | 2019-08-10 07:28 | NUR ---
RECEIVED PT FROM TEA TREE FARMER NURSE, PT IS AWAKE AND LYING ON THE BED WITH SIDE RAILS UP AND CALL LIGHT WITHIN, BED ALARM ACTIVATED REACH, PERIPHERAL LINE ON THE RT WRIST G. 22 NS INFUSING AT 10ML/HR, PT HAS A LEFT UA AV SHUNT IN PLACE, AND SLING IS IN PLACE ON THE LEFT ARM, PT DENIES PAIN AND NO SIGN OF DISTRESS NOTED. WILL CONTINUE TO MONITOR PT.
[2019-08-10 08:00] VITALS: BP 121/74
[2019-08-10] MEDS ORDERED: amLODIPine 5 MG TAB PO SCH (09:00)
[2019-08-10] MEDS ORDERED: ASPIRIN 81 MG TAB.CHEW PO SCH ×2 (09:00→10:25)
--- NOTE | 2019-08-10 09:01 | NUR ---
PATIENT HAS BEEN SCREENED AND CATEGORIZED HIGH NUTRITION RISK. PATIENT WILL BE SEEN WITHIN 1-2 DAYS OF ADMISSION. 08/11/19 08/12/[address]
--- NOTE | 2019-08-10 09:30 | NUR ---
DR. DIGGS CALLED AND MADE TELEPHONE ORDER FOR A DIALYSIS FOR PT. READ BACK AND ACKNOWLEDGED.
[2019-08-10] MEDS: ESCITALOPRAM 20 MG TAB PO SCH (09:35)
[2019-08-10] MEDS: VIT-B COMP/VIT-C/FOLIC ACID 1 TAB PO SCH (09:35)
[2019-08-10] MEDS: DONEPEZIL 10 MG TAB PO SCH (09:38)
[2019-08-10] MEDS: FERROUS SULFATE 325 MG TABEC PO SCH ×2 (09:38→16:30)
[2019-08-10] MEDS: FOLIC ACID 1 MG TAB PO SCH (09:38)
[2019-08-10] MEDS: CALCIUM ACETATE 667 MG TAB PO SCH ×3 (09:38→16:30)
[2019-08-10] MEDS: traMADol 50 MG TAB PO SCH ×3 (09:39→16:30)
--- NOTE | 2019-08-10 09:39 | NUR ---
PT IS AWAKE AND ORAL MEDICATIONS WERE GIVEN TO PT AND TOLERATED, NO SWALLOWING DIFFICULTY, WILL MONITOR PT.
--- NOTE | 2019-08-10 11:34 | NUR ---
PT IS AWAKE AND V/S SIGNS TAKEN AND IS WITHIN NORMAL LIMIT, BLOOD GLUCOSE CHECK DONE AND RESULT IS 212, INSULIN 4 UNITS WAS GIVEN ON THE ABDOMEN. NO SIGN OF DISTRESS NOTED AND WILL MONITOR PT
[2019-08-10 12:00] VITALS: BP 126/42
--- NOTE | 2019-08-10 13:28 | NUR ---
PT IS AWAKE AND DAUGHTER ON THE BEDSIDE, ORAL MEDICATIONS WERE GIVEN, BP IS 101/38, PULSE IS 71, TOLERATED IT. NO SIGN OF DISTRESS NOTED, AND WILL CONTINUE TO BE MONITORED.
--- NOTE | 2019-08-10 14:01 | NUR ---
08/10/19 RD INITIAL ASSESSMENT COMPLETED PLEASE REFER TO NUTRITION ASSESSMENT UNDER CARE ACTIVITY FOR ESTIMATED NUTRITIONAL NEEDS. 1. CONTINUE RENAL,CCHO DIET TOLERATED 2. RECOMMEND NEPRO BID 3. RD TO FOLLOW-UP 2-3 DAYS, HIGH RISK SHAKA TRUJILLO, RD
[2019-08-10] MEDS: NACL 0.9% 1,000 ML IV SCH (15:39)
--- NOTE | 2019-08-10 15:50 | NUR ---
DIALYSIS WAS STARTED TO PT NOW.
[2019-08-10 16:00] VITALS: BP 120/84
[2019-08-10] MEDS ORDERED: EPOETIN ALFA 10,000 UNITS/ML VIAL IV SCH (16:00)
--- NOTE | 2019-08-10 16:32 | NUR ---
PT WAS GIVEN ORAL MEDICATIONS NOW, BP IS 107/44, PULSE IS 65. WILL MONITOR PT.
--- NOTE | 2019-08-10 19:00 | NUR ---
DIALYSIS IS FINISHED NOW.
--- NOTE | 2019-08-10 19:30 | NUR ---
ENDORSED PT TO TACK DRILLER NURSECLINT FOR CONTINUITY OF CARE.
--- NOTE | 2019-08-10 19:34 | NUR ---
REPORT RECIEVED FOR ISHMAEL PETERSON. IPT IS BURKINAN SPEAKING AAOX3 R WRIST IV INFUSING WELL DIALYSIS SHUR ON LEFT ARM DRESSING DRY AND INTACT. 2.5 LITERS OUT DURING DIALYSIS TELEMETRY SR AT 68. O2 2L NC FAMILY AT BEDSIDE. INITIAL ASSESSMENT DONE.
[2019-08-10 20:00] VITALS: BP 106/38
[2019-08-10] MEDS: ATORVASTATIN 20 MG TAB PO SCH (21:43)
--- NOTE | 2019-08-10 22:00 | NUR ---
PT SLEEPING. BS 208 4U HUMALOG GIVEN R ABDOMEN SUB G NO DISTRESS NOTED
[2019-08-11] VITALS: BP 114/45
[2019-08-11 04:00] VITALS: BP 142/43
[2019-08-11] MEDS: BLOOD GLUCOSE MONITORING 1 DEV DEV FS SCH ×4 (05:44→20:52)
[2019-08-11] MEDS: INSULIN LISPRO SLIDING SCALE 100 UNITS/ML VIAL SUBQ PRN ×3 (05:49→21:05)
[2019-08-11] MEDS: LEVOTHYROXINE 0.075 MG TAB PO SCH (05:51)
--- NOTE | 2019-08-11 06:00 | NUR ---
BS 154 COVERAGE HUMALOG 2 UNITS SUBQ RIGHT ARM. PT ON TELE SR. PT WILL BE ENDORSED TO DAY SHIFT NURSE FOR CONTINUED CARE.
[2019-08-11 07:35] LABS: ANION GAP 10.4 (8-16); CARBON DIOXIDE 32.7 mmol/L (21-32); CHLORIDE 101 mmol/L (98-107); CREATININE 1.7 mg/dL (0.6-1.3); GLUCOSE 156 mg/dL (74-106); POTASSIUM 4.1 mmol/L (3.5-5.1); SODIUM SERUM 140 mmol/L (136-145); UREA NITROGEN, BLOOD 12 mg/dL (7-18)
--- NOTE | 2019-08-11 07:38 | NUR ---
RECEIVED HANDOFF REPORT FROM PM RN PT AWAKE IN BED PT APPEARS STABLE AND IN NO APPARENT DISTRESS. ALL SAFETY MEASURES IN PLACE PT HAS LEFT UPPER EXTREMITY HD ACCESS. RESTRICTION SIGNS POSTED PT APPEARS STABLE AND IN NO APPARENT DISTRESS. WILL CONTINUE TO MONITOR
[2019-08-11 08:03] LABS: BASOPHILS % (AUTO) 0.7 % (0.0-2.0); EOSINOPHILS # (AUTO) 0.1 K/uL (0-0.4); EOSINOPHILS % (AUTO) 1.6 % (0.0-4.0); HEMATOCRIT 23.6 % (36-48); HEMOGLOBIN 7.8 g/dL (12.0-16.0); LYMPHOCYTES # (AUTO) 0.6 K/uL (2.5-16.5); LYMPHOCYTES % (AUTO) 12.5 % (20.5-51.1); MEAN CORPUSCULAR HEMOGLOBIN 33 pg (27-31); MEAN CORPUSCULAR HGB CONC 33 g/dL (33-37); MEAN CORPUSCULAR VOLUME 101.3 fL (80-94); MONOCYTES # (AUTO) 0.5 K/uL (0.8-1.0); NEUTROPHILS # (AUTO) 3.5 K/uL (1.8-7.7); NEUTROPHILS % (AUTO) 74.2 % (42.2-75.2); PLATELET COUNT (AUTO) 146 K/uL (140-450); RED BLOOD CELL COUNT(AUTO) 2.33 MIL/uL (4.20-5.40); RED CELL DISTRIBUTION WIDTH 16.6 % (11.6-13.7); WHITE BLOOD COUNT (AUTO) 4.8 K/uL (4.8-10.8)
[2019-08-11 08:28] VITALS: BP 130/41
[2019-08-11] MEDS ORDERED: METOPROLOL 25 MG TAB PO SCH (09:00)
[2019-08-11] MEDS ORDERED: LISINOPRIL 5 MG TAB PO SCH (09:30)
[2019-08-11] MEDS: CALCIUM ACETATE 667 MG TAB PO SCH ×3 (09:37→17:22)
[2019-08-11] MEDS: ASPIRIN 81 MG TAB.CHEW PO SCH (09:38)
[2019-08-11] MEDS: ESCITALOPRAM 20 MG TAB PO SCH (09:38)
[2019-08-11] MEDS: DONEPEZIL 10 MG TAB PO SCH (09:39)
[2019-08-11] MEDS: FOLIC ACID 1 MG TAB PO SCH (09:40)
[2019-08-11] MEDS: traMADol 50 MG TAB PO SCH ×3 (09:41→17:22)
[2019-08-11] MEDS: VIT-B COMP/VIT-C/FOLIC ACID 1 TAB PO SCH (09:41)
[2019-08-11] MEDS: FERROUS SULFATE 325 MG TABEC PO SCH ×2 (09:51→17:23)
[2019-08-11] MEDS ORDERED: SODIUM FERRIC GLUCONATE 125 MG in NACL 0.9% 100 ML IV SCH (10:00)
--- NOTE | 2019-08-11 10:29 | NUR ---
HELD PT MORNING LISINOPRIL SPOKE WITH DR CARRILLO. SHE STATED TO FOLLOW UP WITH SEPARATING MACHINE OPERATOR. TO CONFIRM IF THE PATIENT WILL BE RECEIVING HD TODAY SINCE TODAY IS THE PATIENTS SCHEDULED HD DAY. ALTHOUGH PT RECEIVED HD YESTERDAY
--- NOTE | 2019-08-11 11:13 | NUR ---
FREQUENT ROUNDING ON PT PT APPEARS STABLE AND IN NO APPARENT DISTRESS. ALL SAFETY MEASURES ARE IN PLACE WILL CONTINUE TO MONITOR.
[2019-08-11 12:03] VITALS: BP 119/38
--- NOTE | 2019-08-11 13:46 | NUR ---
FREQUENT ROUNDING ON PT PT APPEARS STABLE AND IN NO APPARENT DISTRESS. ALL SAFETY MEASURES ARE IN PLACE WILL CONTINUE TO MONITOR
--- NOTE | 2019-08-11 15:40 | NUR ---
FREQUENT ROUNDING ON PT PT APPEARS STABLE AND IN NO APPARENT DISTRESS. ALL SAFETY MEASURES ARE IN PLACE WILL CONTINUE TO MONITOR.
[2019-08-11 16:30] VITALS: BP 133/42
--- NOTE | 2019-08-11 18:34 | NUR ---
FREQUENT ROUNDING ON PT PT APPEARS STABLE AND IN NO APPARENT DISTRESS. ALL SAFETY MEASURES IN PLACE
--- NOTE | 2019-08-11 19:25 | NUR ---
ENDORSED PT TO PM RN PT APPEARS STABLE AND IN NO APPARENT DISTRESS. LEFT AV SHUNT IN PLACE 02 VIA NASAL CANULA IN PLACE. ALL SAFETY MEASURES ARE IN PLACE
--- NOTE | 2019-08-11 19:26 | NUR ---
RECEIVED BEDSIDE REPORT FROM BEVERLY DENSON. PT IS AWAKE RESTING IN BED. DISCUSSED PLAN OF CARE, VERBALIZED UNDERSTANDING. NO SIGNS OF DISTRESS NOTED. EVEN UNLABORED BREATHING. 2L NC. R WRIST 22G INFUSING NS TKO. L UA SHUNT. BED IN LOWEST POSITION. CALL LIGHT WITHIN REACH. WILL CONTINUE TO MONITOR.
[2019-08-11 20:00] VITALS: BP 137/49
[2019-08-11] MEDS: ATORVASTATIN 20 MG TAB PO SCH (20:59)
[2019-08-11] MEDS: METOPROLOL 25 MG TAB PO SCH (21:00)
--- NOTE | 2019-08-11 22:00 | NUR ---
EVEN UNLABORED BREATHING NO SIGNS OF DISTRESS. 2LNC. IV NS TKO STILL INFUSING. PATENT AND INTACT.
[2019-08-12] VITALS: BP 112/45
--- NOTE | 2019-08-12 | NUR ---
PT SLEEPING IN BED. EASILY AROUSABLE. VSS. WILL CONTINUE TO MONITOR.
--- NOTE | 2019-08-12 01:25 | NUR ---
PT IS SLEEPING WITH NO SIGNS OF DISTRESS. NO PAIN REPORTED. WILL CONTINUE TO MONITOR.
--- NOTE | 2019-08-12 03:21 | NUR ---
PT SLEEPING IN BED NO SIGNS OF DISTRESS. EVEN CHEST RISE NOTED. NO PAIN REPORTED. MOTHER AT BEDSIDE.
--- NOTE | 2019-08-12 05:17 | NUR ---
PT REPOSITIONED IN BED. NO SIGNS OF DISTRESS. TKO INFUSING. PATENT INTACT.
[2019-08-12] MEDS: LEVOTHYROXINE 0.075 MG TAB PO SCH (05:44)
--- NOTE | 2019-08-12 06:14 | NUR ---
PT SLEEPING IN BED. PT IS STABLE. WILL ENDORSE TO AM SHIFT RN.
[2019-08-12 07:07] LABS: ANION GAP 10.3 (8-16); CARBON DIOXIDE 32.6 mmol/L (21-32); CHLORIDE 101 mmol/L (98-107); CREATININE 2.6 mg/dL (0.6-1.3); GLUCOSE 150 mg/dL (74-106); POTASSIUM 3.9 mmol/L (3.5-5.1); SODIUM SERUM 140 mmol/L (136-145); UREA NITROGEN, BLOOD 16 mg/dL (7-18)
[2019-08-12 07:10] LABS: BASOPHILS # (AUTO) 0.1 K/uL (0.00-0.22); EOSINOPHILS # (AUTO) 0.1 K/uL (0-0.4); EOSINOPHILS % (AUTO) 2.2 % (0.0-4.0); HEMATOCRIT 24.6 % (36-48); LYMPHOCYTES # (AUTO) 0.7 K/uL (2.5-16.5); LYMPHOCYTES % (AUTO) 12.1 % (20.5-51.1); MEAN CORPUSCULAR HEMOGLOBIN 33 pg (27-31); MEAN CORPUSCULAR HGB CONC 33 g/dL (33-37); MEAN CORPUSCULAR VOLUME 102.7 fL (80-94); MONOCYTES # (AUTO) 0.6 K/uL (0.8-1.0); MONOCYTES % (AUTO) 10.2 % (1.7-9.3); NEUTROPHILS # (AUTO) 4.2 K/uL (1.8-7.7); NEUTROPHILS % (AUTO) 74.5 % (42.2-75.2); PLATELET COUNT (AUTO) 186 K/uL (140-450); RED CELL DISTRIBUTION WIDTH 16.7 % (11.6-13.7); WHITE BLOOD COUNT (AUTO) 5.7 K/uL (4.8-10.8)
--- NOTE | 2019-08-12 07:30 | NUR ---
RECEIVED BEDSIDE REPORT FROM MORPHOLOGIST NURSE, PT IS AAOX2, ABLE TO FOLLOW COMMANDS AND MAKE NEEDS KNOWN, VSS, DENIES PAIN, NO S/S OF DISTRESS, CLEAR LUNG SOUNDS KATHI. ON O2 AT 2L VIA NC, DENIES CHEST PAIN, SR ON TELE MONITOR, CAP REFILL <2 SEC. SOFT ROUND ABDOMEN WITH ACTIVE BOWEL SOUNDS, ON FLUID RESTRICTION 1.5L/DAY, INCONTINENT WITH B&B'S, ABLE TO MOVE ALL EXTREMITIES, CAST TO LEFT ARM NOTED, GENERALIZED WEAKNESS NOTED. SKIN IS WARM AND DRY TO TOUCH, SKIN TEAR TO RIGHT SIDE OF FACE, IV TO RIGHT WRIST 22GA, PATENT AND KVO, AV SHUNT TO LEFT ARM NOTED, HOB ELEVATED 30 DEGREES, SAFETY MEASURES IN PLACE, CALL LIGHT WITHIN REACH, WILL CONTINUE TO MONITOR.
[2019-08-12 08:00] VITALS: BP_SYST 130; BP_SYST 150; BP_DIAS 40; BP_DIAS 63
[2019-08-12] MEDS: BLOOD GLUCOSE MONITORING 1 DEV DEV FS SCH ×4 (08:04→20:33)
[2019-08-12] MEDS: ESCITALOPRAM 20 MG TAB PO SCH (08:56)
[2019-08-12] MEDS: FOLIC ACID 1 MG TAB PO SCH (08:56)
[2019-08-12] MEDS: VIT-B COMP/VIT-C/FOLIC ACID 1 TAB PO SCH (08:56)
[2019-08-12] MEDS: ASPIRIN 81 MG TAB.CHEW PO SCH (08:56)
[2019-08-12] MEDS: CALCIUM ACETATE 667 MG TAB PO SCH ×3 (08:57→17:14)
[2019-08-12] MEDS: DONEPEZIL 10 MG TAB PO SCH (08:58)
[2019-08-12] MEDS: FERROUS SULFATE 325 MG TABEC PO SCH ×2 (08:58→17:14)
[2019-08-12] MEDS: traMADol 50 MG TAB PO SCH ×3 (08:58→17:15)
[2019-08-12] MEDS: METOPROLOL 25 MG TAB PO SCH ×2 (08:59→20:37)
[2019-08-12] MEDS ORDERED: LISINOPRIL 5 MG TAB PO SCH ×2 (09:00)
[2019-08-12] MEDS ORDERED: amLODIPine 5 MG TAB PO SCH (09:00)
--- NOTE | 2019-08-12 09:00 | NUR ---
SCHEDULED MEDICATION GIVEN, PT IS ABLE TO SWALLOW PILLS WHOLE AND TOLERATED WELL AT THIS TIME.
--- NOTE | 2019-08-12 11:00 | NUR ---
TRIED TO GET PT OUT OF BED TO CHAIR, PT C/O SEVERE PAIN WHEN MOVING LEFT SHOULDER AND ARMS, REFUSED PAIN MEDICATION, REFUSED TO SIT UP, WILL TRY LATER AGAIN.
[2019-08-12] MEDS: INSULIN LISPRO SLIDING SCALE 100 UNITS/ML VIAL SUBQ PRN ×2 (11:59→20:45)
[2019-08-12 12:00] VITALS: BP 125/35
--- NOTE | 2019-08-12 12:00 | NUR ---
PT IS RESTING IN BED, NO S/S OF DISTRESS, VSS, DENIES ANY PAIN.
--- NOTE | 2019-08-12 14:00 | NUR ---
TRIED TO GET PATIENT OUT FROM BED, PT C/O PAIN, REFUSED TO GET OUT OF BED, PT'S DAUGHTER AT BEDSIDE, HELPING TO EXPLAINED THE RISK AND BENEFIT FOR MOVING ARMS AND LEGS, PT WAS IN PAIN, COULD NOT TOLERATED ANY ACTIVITIES, OFFERED THE PAIN MEDICATION, REFUSED TOO.
[2019-08-12 16:00] VITALS: BP 115/43
--- NOTE | 2019-08-12 16:00 | NUR ---
PT IS ALERT AND AWAKE, NO S/S OF DISTRESS, VSS, DENIES PAIN, FAMILY MEMBERS AT BEDSIDE, QUESTIONS ANSWERED AND SATISFACTION OBTAINED.
--- NOTE | 2019-08-12 19:20 | NUR ---
REPORT GIVEN TO EMERGENCY ROOM NURSE NURSE FOR CONTINUE OF CARE, PT IS IN STABLE CONDITION AT THIS TIME.
--- NOTE | 2019-08-12 19:25 | NUR ---
RECEIVED PT FROM ASHELY RN PT TURKISH SPEAKER AAOX3 AV SHUNT FOR DIALYSIS ON LEFT UA IV ON RT WRIST INFUSING WELL ON TELEMETRY SR, NOT DISTRESS NOTED AT THS TIME INITIAL ASSESSMENT DONE
[2019-08-12 20:00] VITALS: BP 123/46
[2019-08-12] MEDS: ATORVASTATIN 20 MG TAB PO SCH (20:36)
[2019-08-12] MEDS ORDERED: traZODone 50 MG TAB PO SCH (21:00)
--- NOTE | 2019-08-12 21:30 | NUR ---
BLOOD SUGAR TEST 159 COVERAGE WITH 2 UNITS HUMALOG SUBQ FOLLOW PROTOCOL
[2019-08-13] VITALS: BP 109/45
--- NOTE | 2019-08-13 00:41 | NUR ---
;PT REPOSITIONED Q2H NOT DISTRESS NOTED ON TELMETRY SR DIALYSIS NURSE CALLED TO CONFIRM IS COMING TODAY
[2019-08-13 04:00] VITALS: BP 113/44
--- NOTE | 2019-08-13 04:00 | NUR ---
SPONGE BATH GIVEN LINEN CHANGED , REPOSITIONED Q2H NOT DISTRESS NOTED ON TELEMETRY SB
[2019-08-13 06:25] LABS: BASOPHILS % (AUTO) 0.5 % (0.0-2.0); EOSINOPHILS # (AUTO) 0.2 K/uL (0-0.4); EOSINOPHILS % (AUTO) 3.2 % (0.0-4.0); HEMATOCRIT 22.5 % (36-48); HEMOGLOBIN 7.3 g/dL (12.0-16.0); LYMPHOCYTES # (AUTO) 0.7 K/uL (2.5-16.5); LYMPHOCYTES % (AUTO) 13.5 % (20.5-51.1); MEAN CORPUSCULAR HEMOGLOBIN 33 pg (27-31); MEAN CORPUSCULAR HGB CONC 33 g/dL (33-37); MEAN CORPUSCULAR VOLUME 101.8 fL (80-94); MONOCYTES # (AUTO) 0.6 K/uL (0.8-1.0); MONOCYTES % (AUTO) 10.1 % (1.7-9.3); NEUTROPHILS % (AUTO) 72.7 % (42.2-75.2); PLATELET COUNT (AUTO) 178 K/uL (140-450); RED BLOOD CELL COUNT(AUTO) 2.21 MIL/uL (4.20-5.40); RED CELL DISTRIBUTION WIDTH 16.3 % (11.6-13.7); WHITE BLOOD COUNT (AUTO) 5.5 K/uL (4.8-10.8)
[2019-08-13] MEDS: BLOOD GLUCOSE MONITORING 1 DEV DEV FS SCH ×2 (06:29→11:39)
[2019-08-13] MEDS: LEVOTHYROXINE 0.075 MG TAB PO SCH (06:36)
--- NOTE | 2019-08-13 06:37 | NUR ---
BLOOD SUGAR TEST 129 NOT COVERAGE . PT WILL BE ENDORSED TODAY SHIFT NURSE FOR CONTINUE OF CARE
[2019-08-13 06:47] LABS: ANION GAP 11.6 (8-16); CARBON DIOXIDE 31.2 mmol/L (21-32); CHLORIDE 101 mmol/L (98-107); CREATININE 3.3 mg/dL (0.6-1.3); GLUCOSE 114 mg/dL (74-106); POTASSIUM 3.8 mmol/L (3.5-5.1); SODIUM SERUM 140 mmol/L (136-145); UREA NITROGEN, BLOOD 20 mg/dL (7-18)
[2019-08-13 06:57] LABS: MAGNESIUM 1.9 mg/dL (1.8-2.4); PHOSPHORUS 2.7 mg/dL (2.5-4.9)
[2019-08-13 08:00] VITALS: BP 116/35
--- NOTE | 2019-08-13 08:25 | NUR ---
DIALYSIS WAS STARTED TO PT NOW.
[2019-08-13] MEDS: FERROUS SULFATE 325 MG TABEC PO SCH (08:27)
[2019-08-13] MEDS: VIT-B COMP/VIT-C/FOLIC ACID 1 TAB PO SCH (08:27)
[2019-08-13] MEDS: CALCIUM ACETATE 667 MG TAB PO SCH ×2 (08:27→13:47)
[2019-08-13] MEDS: FOLIC ACID 1 MG TAB PO SCH (08:27)
[2019-08-13] MEDS: DONEPEZIL 10 MG TAB PO SCH (08:28)
[2019-08-13] MEDS: ASPIRIN 81 MG TAB.CHEW PO SCH (08:28)
[2019-08-13] MEDS: ESCITALOPRAM 20 MG TAB PO SCH (08:28)
[2019-08-13] MEDS: METOPROLOL 25 MG TAB PO SCH (08:29)
[2019-08-13] MEDS: traMADol 50 MG TAB PO SCH ×2 (08:30→13:48)
--- NOTE | 2019-08-13 08:35 | NUR ---
Wound care evaluation to periorbital skin with no open active wound at this time ,primary RN and livestock nutritionist at bed side.
[2019-08-13] MEDS ORDERED: LISINOPRIL 5 MG TAB PO SCH (09:00)
[2019-08-13] MEDS ORDERED: amLODIPine 5 MG TAB PO SCH (09:00)
[2019-08-13] MEDS ORDERED: EPOETIN ALFA 10,000 UNITS/ML VIAL IV SCH (09:00)
--- NOTE | 2019-08-13 11:25 | NUR ---
DIALYSIS WAS FINISHED NOW AND 2L OUTPUT WAS TAKEN, PT IS STABLE AND BP IS 127/39, PULSE IS 65. WILL MONITOR PT.
[2019-08-13] MEDS ORDERED: FER325 PO (11:31)
[2019-08-13] MEDS ORDERED: ESCI20TA47 PO (11:31)
[2019-08-13] MEDS ORDERED: TRAM50TA3 PO (11:31)
[2019-08-13] MEDS ORDERED: ACET-1182 PO (11:31)
[2019-08-13] MEDS ORDERED: GLUC-805 FS (11:31)
[2019-08-13] MEDS ORDERED: NEP PO (11:31)
[2019-08-13] MEDS ORDERED: LISI-424 PO (11:31)
[2019-08-13] MEDS ORDERED: ONDA2SOL45 IM/IVP (11:31)
[2019-08-13] MEDS ORDERED: ATOR20TA40 PO (11:31)
[2019-08-13] MEDS ORDERED: SYN.075 PO (11:31)
[2019-08-13] MEDS ORDERED: ASPI81CT95 PO (11:31)
[2019-08-13] MEDS ORDERED: DONE10TA10 PO (11:31)
[2019-08-13] MEDS ORDERED: PHO667 PO (11:31)
[2019-08-13] MEDS ORDERED: METO25TA PO (11:31)
[2019-08-13] MEDS ORDERED: FOLI1TAB90 PO (11:31)
[2019-08-13] MEDS ORDERED: D50SYR IVP (11:31)
--- NOTE | 2019-08-13 11:58 | NUR ---
CALLED [facility] SPOKE WITH NIKITA PT CAN GO TO ROOM 24B # TO GIVE REPORT [phone] . NIKITA WILL ARRANGE TRANSPORT AND WILL CALL BACK FOR ELECTROTYPER APPRENTICE TIME.
[2019-08-13 12:00] VITALS: BP 123/36
--- NOTE | 2019-08-13 12:05 | NUR ---
TRANSPORTER WILL BE SAMMIE ARRANGED BY NIKITA FROM [facility] FOUR ROLL CALENDER OPERATOR TIME BETWEEN 1-2 PM
--- NOTE | 2019-08-13 13:46 | NUR ---
PER DAUGHTER REQUEST PREFERRED [facility] , CALLED [facility] SPOKE WITH SOUMYA ,ACCEPTED PT AND PT CAN GO TO ROOM 26A , SOUMYA ARRANGED TRANSPORT WITH [facility] ,WILD ANIMAL CARETAKER TIME 3:30 PM LEFT A MESSAGE FOR DAUGHTER EMY AT [phone]
--- NOTE | 2019-08-13 15:43 | NUR ---
CALLED CASSY MACK AT [phone], AND GAVE REPORT TO ASHELY ARMAS, PT WILL BE GOING TO 26-A AND WILL BE PICKED UP BY [facility], AND PAWEL LUND VERBALIZED UNDERSTANDING.
--- NOTE | 2019-08-13 15:45 | NUR ---
DISCHARGED PT TO [facility], IV LINE AND ARM BAND REMOVED, DISCHARGED TEACHINGS AND INSTRUCTIONS GIVEN TO PT, INTERPRETED BY YARD HOSTLER # [id number], WITH DAUGHTER ON THE BEDSIDE AND VERBALIZED UNDERSTANDING, PT IS STABLE AT THIS TIME.
--- NOTE | 2019-08-13 19:25 | NUR ---
RECEIVED PT FROM WORKFORCE CONSULTANT NURSE, PT IS AWAKE AND IV LINE ON THE RT WRIST G. 22 WITH IVF NS INFUSING AT 10ML/HR, SIDE RAILS ARE UP AND CALL LIGHT WITHIN REACH, SAFETY AND FALL PRECAUTION INITIATED, PT DENIES PAIN AND NO SIGN OF DISTRESS NOTED. WILL MONITOR PT. Addendum: 08/13/19 at 1946 by Janee Hutchins RN TIME NOTED ON THE ABOVE IS WRONG, CORRECT TIME IS 0725.
== END 2019-08-13 15:45 | DRG 562 ==
LOC: MED 12:24 → MTU 15:39
PROVIDERS: ADMIT General Practice; ATTEND General Practice
PROC: 5A1D70Z Performance of Urinary Filtration, Intermittent, Less than 6 Hours Per Day (ICD-10-PCS; principal; 2019-08-10)
PROC: 5A1D70Z Performance of Urinary Filtration, Intermittent, Less than 6 Hours Per Day (ICD-10-PCS; 2019-08-13)
DX: S42.202A Unspecified fracture of upper end of left humerus, initial encounter for closed fracture (principal); I50.43 Acute on chronic combined systolic (congestive) and diastolic (congestive) heart failure; N17.0 Acute kidney failure with tubular necrosis; N18.6 End stage renal disease; I13.2 Hypertensive heart and chronic kidney disease with heart failure and with stage 5 chronic kidney disease, or end stage renal disease; I42.9 Cardiomyopathy, unspecified; Z99.2 Dependence on renal dialysis; E03.9 Hypothyroidism, unspecified; E11.22 Type 2 diabetes mellitus with diabetic chronic kidney disease; E78.5 Hyperlipidemia, unspecified; F02.80 Dementia in other diseases classified elsewhere, unspecified severity, without behavioral disturbance, psychotic disturbance, mood disturbance, and anxiety; G30.9 Alzheimer's disease, unspecified; D63.8 Anemia in other chronic diseases classified elsewhere; W18.30XA Fall on same level, unspecified, initial encounter; Y92.009 Unspecified place in unspecified non-institutional (private) residence as the place of occurrence of the external cause; Z82.49 Family history of ischemic heart disease and other diseases of the circulatory system; Z83.3 Family history of diabetes mellitus; Z86.73 Personal history of transient ischemic attack (TIA), and cerebral infarction without residual deficits; Z90.710 Acquired absence of both cervix and uterus; Z79.899 Other long term (current) drug therapy; Y93.89 Activity, other specified; Y99.8 Other external cause status
CPT/HCPCS: 36415; 70450; 71045; 73030; 80048; 80053; 82140; 82150; 82607; 82728; 82746; 82948; 83036; 83540; 83690; 83735; 83880; 84100; 84443; 84484; 85025; 85045; 85610; 85730; 87081; 93005; 93925; 93970; 97530; 99285; J0885; J1644; J1815; J2916; J7030; Q0092

== ENCOUNTER 2019-09-27 12:36 | Inpatient (IN) | payer OTHER, BC ==
[~2019-09-27] VITALS: Ht 152.4 cm; Wt 49.9 kg
[~2019-09-27 12:36] MED LIST changes: +ACET-1182 PO; -AMLO10TA4 PO; -ASCO500T45 PO; +ASPI81CT95 PO; -ASPI81EC30 PO; +ATOR20TA40 PO; -CALCIUM; -CARV3.122 PO; +D50SYR IVP; +DONE10TA10 PO; +ESCI20TA47 PO; +FER325 PO; +FOLI1TAB90 PO; -HUM SUBQ; -LACT10CA PO; -LEVO0.083 PO; +LISI-424 PO; +METO25TA PO; +NEP PO; +ONDA2SOL45 IM/IVP; +PHO667 PO; -PIPE50SO5 IV; -PRAV40TA1 PO; +SYN.075 PO; -TRAM50TA1 PO; +TRAM50TA3 PO
[2019-09-27 12:44] VITALS: BP 121/53
--- NOTE | 2019-09-27 12:50 | NUR ---
AISHA FROM [facility] FOR ALOC. HX: ESRD WITH HEMODIALYSIS ON , TUE & SAT, CVA, DM. PER EMS & BOBBIN DOFFER PT HAS ALOC X YESTERDAY. BLOOD SUGAR 256.PT IS ABLE TO OPEN HER EYES. SKIN OPEN AT SACRAL. PATIENT POSITIONED FOR COMFORT; HOB ELEVATED; BEDRAILS UP X2; BED DOWN. ER MADE AWARE OF PT STATUS. DAUGHTER &CPG AT BEDSIDE. Addendum: 09/27/19 at 1353 by [email or web address] ZENOBIA COTTRELL PT IS UABLE TO URENATE. Addendum: 09/27/19 at 1631 by [email or web address] SKIN OPENED AT SACRAL, BLL & RIGHT UNDER ARM PIT BRUISE
[2019-09-27 13:28] LABS: BASOPHILS # (AUTO) 0.1 K/uL (0.00-0.22); BASOPHILS % (AUTO) 0.6 % (0.0-2.0); EOSINOPHILS % (AUTO) 0.4 % (0.0-4.0); HEMATOCRIT 35.5 % (36-48); HEMOGLOBIN 10.9 g/dL (12.0-16.0); LYMPHOCYTES # (AUTO) 0.3 K/uL (2.5-16.5); LYMPHOCYTES % (AUTO) 2.9 % (20.5-51.1); MEAN CORPUSCULAR HEMOGLOBIN 30 pg (27-31); MEAN CORPUSCULAR HGB CONC 31 g/dL (33-37); MEAN CORPUSCULAR VOLUME 96.9 fL (80-94); MONOCYTES # (AUTO) 0.3 K/uL (0.8-1.0); MONOCYTES % (AUTO) 3.8 % (1.7-9.3); NEUTROPHILS # (AUTO) 8.1 K/uL (1.8-7.7); NEUTROPHILS % (AUTO) 92.3 % (42.2-75.2); PLATELET COUNT (AUTO) 167 K/uL (140-450); RED BLOOD CELL COUNT(AUTO) 3.66 MIL/uL (4.20-5.40); RED CELL DISTRIBUTION WIDTH 17.6 % (11.6-13.7); WHITE BLOOD COUNT (AUTO) 8.8 K/uL (4.8-10.8)
[2019-09-27] MEDS ORDERED: ACETAMINOPHEN 650 MG SUPP RC ONE ×2 (13:45→13:47)
[2019-09-27 13:51] LABS: PROTHROMBIN TIME 11.6 secs (10.8-13.4)
[2019-09-27 14:05] LABS: ALBUMIN 2.4 g/dL (3.4-5.0); ANION GAP 12.3 (8-16); ASPARTATE AMINOTRANSFERASE 28 U/L (15-37); CARBON DIOXIDE 32.4 mmol/L (21-32); CHLORIDE 105 mmol/L (98-107); CREATININE 1.7 mg/dL (0.6-1.3); GLUCOSE 188 mg/dL (74-106); SODIUM SERUM 147 mmol/L (136-145); TOTAL BILIRUBIN 0.9 mg/dL (0.0-1.0); UREA NITROGEN, BLOOD 20 mg/dL (7-18)
[2019-09-27] MEDS ORDERED: PIPERACILLIN/TAZOBACTAM 3.375 GM in DEXTROSE 5% 50 ML IV ONE (14:05)
[2019-09-27 14:11] LABS: POTASSIUM 2.7 mmol/L (3.5-5.1)
[2019-09-27] MEDS ORDERED: PIPERACILLIN/TAZOBACTAM 3.375 GM VIAL IV ONE (14:12)
[2019-09-27] MEDS ORDERED: ENOXAPARIN 40 MG/0.4 ML SYR SUBQ ONE (16:05)
[2019-09-27] MEDS ORDERED: POTASSIUM CHLORIDE 20% 40 MEQ/15 ML UDC PO ONE (16:05)
--- NOTE | 2019-09-27 16:21 | NUR ---
APPLIED DRESSING TO LEFT FOOT AND HEEL, RIGHT FOOT, RIGHT BOTTOCKS.
[2019-09-27] MEDS ORDERED: AMLO2.5T PO (16:57)
[2019-09-27] MEDS ORDERED: ATRO1TAB PO (16:57)
[2019-09-27] MEDS ORDERED: ESCI10TA PO (16:57)
[2019-09-27] MEDS ORDERED: AMLO10TA1 PO (16:57)
[2019-09-27] MEDS ORDERED: PRAV40TA1 PO (16:57)
[2019-09-27] MEDS ORDERED: HUM7525 SUBQ (16:57)
[2019-09-27] MEDS ORDERED: CARV3.12 PO (16:57)
[2019-09-27] MEDS ORDERED: NACL 0.9% 1,000 ML IV SCH (17:19)
[2019-09-27] MEDS ORDERED: ACETAMINOPHEN 325 MG TAB PO PRN (17:20)
[2019-09-27] MEDS ORDERED: ZOLPIDEM 5 MG TAB PO PRN (17:20)
[2019-09-27] MEDS ORDERED: HYDROcodone/APAP 5/325 MG 1 TAB TAB PO PRN (17:20)
[2019-09-27] MEDS ORDERED: MORPHINE SULFATE 2 MG/ML SYR IVP PRN (17:20)
[2019-09-27] MEDS ORDERED: ONDANSETRON 4 MG/2 ML VIAL IM/IVP PRN (17:20)
[2019-09-27] MEDS ORDERED: LORazepam 2 MG/ML VIAL IM/IVP PRN (17:20)
[2019-09-27] MEDS ORDERED: DOCUSATE SODIUM 100 MG GELCAP PO PRN (17:20)
--- NOTE | 2019-09-27 18:18 | NUR ---
PATIENT WAS RECEIVED ON THE UNIT IN STABLE CONDITION, FAMILY PRESENT AT BEDSIDE. REPORT RECEIVED FROM ER NURSE FOR CONTINUATION OF CARE. ORIENTED TO THE UNIT. BED IN LOW POSITION, O2 NASAL CANNULA AT 2 L. VITAL SIGNS ARE STABLE. PATIENT IS AA0 X 1. RESPONDS TO STIMULI. CALL LIGHT ON AND WITHIN REACH. WILL CONTINUE TO MONITOR.
--- NOTE | 2019-09-27 18:18 | NUR ---
Patient will be admitted to care of DR BOWDEN. Admited to TELE. Will go to room 117. Belongings list completed. Report to DELGADO PETERSON.
[2019-09-27 18:39] LABS: FREE T4 (FREE THYROXINE) 0.75 ng/dL (0.76-1.46); MAGNESIUM 2.2 mg/dL (1.8-2.4); THYROID STIMULATING HORMONE 19.29 uIU/mL (0.34-3.74)
[2019-09-27 18:57] LABS: CHOL/HDL RATIO 9.3 (1-4.5); PHOSPHORUS 0.5 mg/dL (2.5-4.9)
[2019-09-27] MEDS ORDERED: SODIUM PHOSPHATE 15 MMOLE in NACL 0.9% 250 ML IV ONE (19:05)
[2019-09-27] MEDS ORDERED: HEPARIN PER PHARMACY MC PRN (19:10)
[2019-09-27] MEDS ORDERED: hePARIN / DEXT 5% PREMIX 250 ML IV SCH (19:10)
[2019-09-27] MEDS ORDERED: POTASSIUM CHLORIDE 40 MEQ, LIDOCAINE MPF 1% 25 MG in NACL 0.9% 250 ML IV ONE (19:10)
--- NOTE | 2019-09-27 19:20 | NUR ---
PATIENT REPORT GIVEN TO WIRE LOOP MACHINE OPERATOR RN FOR CONTINUATION OF CARE. CRITICAL LAB REPORTED TO DR. ADAMSON AT 1351. PATIENT IS IN STABLE CONDITION. PATIENT IS AAOX1. FAMILY AT BEDSIDE. BED IN LOW POSITION. NS RUNNING AT 10 ML/HR TKO. NO LAB DRAWS/NO BP IN LEFT ARM D/T FISTULA.
--- NOTE | 2019-09-27 19:21 | NUR ---
RECEIVED PATIENT IN BED AWAKE WITH DAUGHTER AT BEDSIDE. ON 2LPM O2 VIA NASAL CANNULA. IV ACCESS ON RIGHT AC 20 GAUGE PATENT AND INFUSING WELL. PT NOTED WITH SORE ON LEFT FOOT, LEFT AND RIGHT HEELS, BRUISING ON RIGHT FLANK AND REDNESS ON SACRAL AREA. MRSA SWAB DONE AND SENT TO LAB. BED IN LOW. SAFETY MEASURES IN PLACE. HEMODIALYSIS ACCESS ON LEFT ARM. INITIAL ASSESSMENT DONE. CALL LIGHT WITHIN PATIENT REACH. WILL CONTINUE TO MONITOR PATIENT.
[2019-09-27] MEDS ORDERED: DEXTROSE 50% 50 ML SYR IVP PRN (20:10)
[2019-09-27] MEDS: BLOOD GLUCOSE MONITORING 1 DEV DEV FS SCH (21:00)
--- NOTE | 2019-09-27 21:02 | NUR ---
POTASSIUM CHLORIDE 40 MEQ STARTED AT THIS TIME. WILL CONTINUE TO MONITOR PATIENT.
[2019-09-27] MEDS ORDERED: KCL 20 MEQ/WATER INJ PREMIX 200 ML IV SCH (21:30)
[2019-09-27] MEDS: PIPERACILLIN/TAZOBACTAM 2.25 GM in DEXTROSE 5% 50 ML IV SCH (21:57)
[2019-09-27] MEDS: ATORVASTATIN 20 MG TAB PO SCH (21:59)
[2019-09-27] MEDS: METOPROLOL 25 MG TAB PO SCH (21:59)
--- NOTE | 2019-09-27 22:00 | NUR ---
ROUNDS DONE. VISIBLE CHEST RISE AND FALL NOTED. WILL CONTINUE TO MONITOR PATIENT.
[2019-09-27] MEDS: INSULIN LISPRO SLIDING SCALE 100 UNITS/ML VIAL SUBQ PRN (22:48)
--- NOTE | 2019-09-27 23:32 | NUR ---
SPOKE WITH MARCELINA FROM PHARMACY TO VERIFY WHY THERE IS NO BOLUS BEFORE STARTING HEPARIN DRIP. HE SAID THAT PATIENT ALREADY RECEIVED A THERAPEUTIC DOSE OF LOVENOX IN THE ER AND ITS OKAY TO START HEPARIN DRIP.
[2019-09-27] MEDS ORDERED: SODIUM PHOSPHATE IV ONE (23:52)
[2019-09-27] MEDS ORDERED: DEXTROSE IV ONE (23:52)
--- NOTE | 2019-09-27 23:52 | NUR ---
SODIUM PHOSPHATE IV STARTED AT THIS TIME. WILL CONTINUE TO MONITOR PATIENT.
[2019-09-27] MEDS: hePARIN / DEXT 5% PREMIX 250 ML IV SCH (23:57)
--- NOTE | 2019-09-27 23:57 | NUR ---
HEPARIN DRIP STARTED PER MD ORDER. FOLLOWED HEPARIN PROTOCOL WITH STARTING RATE OF 490 UNITS. WILL CONTINUE TO MONITOR PATIENT.
[2019-09-28 00:15] VITALS: BP 113/41
--- NOTE | 2019-09-28 02:00 | NUR ---
ROUNDS DONE. VISIBLE CHEST RISE AND FALL NOTED. WILL CONTINUE TO MONITOR PATIENT.
[2019-09-28 04:00] VITALS: BP 111/45
--- NOTE | 2019-09-28 04:15 | NUR ---
VITAL SIGNS TAKEN AT THIS TIME. VISIBLE CHEST RISE A FALL NOTED. WILL CONTINUE TO MONITOR PATIENT.
[2019-09-28] MEDS: PIPERACILLIN/TAZOBACTAM 2.25 GM in DEXTROSE 5% 50 ML IV SCH ×3 (04:53→20:38)
[2019-09-28] MEDS ORDERED: LEVOTHYROXINE 0.075 MG TAB PO SCH (06:30)
--- NOTE | 2019-09-28 06:49 | NUR ---
PT IN STABLE CONDITION. CALL LIGHT PLACED WITHIN PATIENT REACH. WILL ENDORSE TO AM SHIFT NURSE FOR CONTINUITY OF CARE.
[2019-09-28 07:09] LABS: ANION GAP 10.8 (8-16); CARBON DIOXIDE 33.3 mmol/L (21-32); CHLORIDE 106 mmol/L (98-107); CREATININE 2.3 mg/dL (0.6-1.3); GLUCOSE 99 mg/dL (74-106); POTASSIUM 4.1 mmol/L (3.5-5.1); SODIUM SERUM 146 mmol/L (136-145); UREA NITROGEN, BLOOD 34 mg/dL (7-18)
[2019-09-28 07:12] LABS: MAGNESIUM 2.1 mg/dL (1.8-2.4)
[2019-09-28 07:37] LABS: BASOPHILS % (AUTO) 0.5 % (0.0-2.0); EOSINOPHILS % (AUTO) 0.4 % (0.0-4.0); HEMATOCRIT 30.4 % (36-48); HEMOGLOBIN 9.4 g/dL (12.0-16.0); LYMPHOCYTES # (AUTO) 0.3 K/uL (2.5-16.5); MEAN CORPUSCULAR HEMOGLOBIN 30 pg (27-31); MEAN CORPUSCULAR HGB CONC 31 g/dL (33-37); MEAN CORPUSCULAR VOLUME 97.3 fL (80-94); MONOCYTES # (AUTO) 0.3 K/uL (0.8-1.0); MONOCYTES % (AUTO) 3.7 % (1.7-9.3); NEUTROPHILS # (AUTO) 7.2 K/uL (1.8-7.7); NEUTROPHILS % (AUTO) 91.4 % (42.2-75.2); PLATELET COUNT (AUTO) 172 K/uL (140-450); RED BLOOD CELL COUNT(AUTO) 3.12 MIL/uL (4.20-5.40); RED CELL DISTRIBUTION WIDTH 17.9 % (11.6-13.7); WHITE BLOOD COUNT (AUTO) 7.9 K/uL (4.8-10.8)
--- NOTE | 2019-09-28 07:41 | NUR ---
RECEIVED PATIENT FROM CRIME DATA SPECIALIST RN FOR CONTINUITY OF CARE. PT IS IN BED SLEEPING. ON 2LPM O2 VIA NASAL CANNULA. IV ACCESS ON RIGHT AC 20 GAUGE PATENT AND INFUSING WELL. PT NOTED WITH SORE ON LEFT FOOT, LEFT AND RIGHT HEELS, BRUISING ON RIGHT FLANK AND REDNESS ON SACRAL AREA. PEDIATRY TO SEE PT PER MD ORDER. SAFETY MEASURES IN PLACE. HEMODIALYSIS ACCESS ON LEFT ARM. TRIED TO EXPLAIN POC TO PT BUT PT NOT COMPREHENDING AT THIS TIME. CALL LIGHT WITHIN PATIENT REACH. WILL MONITOR PATIENT CLOSELY.
[2019-09-28 07:51] LABS: PHOSPHORUS 0.9 mg/dL (2.5-4.9)
[2019-09-28 08:05] VITALS: BP 98/68
[2019-09-28] MEDS: BLOOD GLUCOSE MONITORING 1 DEV DEV FS SCH ×4 (08:12→20:59)
[2019-09-28] MEDS: DONEPEZIL 10 MG TAB PO SCH (08:24)
[2019-09-28] MEDS: LACTOBACILLUS RHAMNOSUS GG 1 EACH CAP PO SCH (08:24)
[2019-09-28] MEDS: ASPIRIN 81 MG TAB.CHEW PO SCH (08:24)
[2019-09-28] MEDS: VIT-B COMP/VIT-C/FOLIC ACID 1 TAB PO SCH (08:24)
[2019-09-28] MEDS: FOLIC ACID 1 MG TAB PO SCH (08:24)
[2019-09-28] MEDS: CALCIUM ACETATE 667 MG TAB PO SCH ×4 (08:24→17:10)
[2019-09-28] MEDS: FERROUS SULFATE 325 MG TABEC PO SCH ×2 (08:24→17:00)
--- NOTE | 2019-09-28 08:24 | NUR ---
PATIENT HAS BEEN SCREENED AND CATEGORIZED HIGH NUTRITION RISK. PATIENT WILL BE SEEN WITHIN 1-2 DAYS OF ADMISSION. 09/28/19-09/29/[address]
[2019-09-28] MEDS: traMADol 50 MG TAB PO SCH ×3 (08:25→17:11)
[2019-09-28] MEDS: METOPROLOL 25 MG TAB PO SCH ×2 (08:26→20:38)
[2019-09-28] MEDS: LISINOPRIL 5 MG TAB PO SCH (08:26)
[2019-09-28] MEDS: hePARIN / DEXT 5% PREMIX 250 ML IV SCH ×2 (08:32→17:15)
--- NOTE | 2019-09-28 08:36 | NUR ---
ATTEMPTED TO ADMINISTER MORNING MEDS TO PT BUT PT WAS HAVING ROUGH TIME SWALLOWING. PT NOT COMPREHENDING THAT SHE NEEDS TO SWALLOW HER MEDS. MD NOTIFIED OF UNSAFE TO GIVE MEDS AT THIS TIME. ALL OTHER NEEDS MET. WILL CONTINUE TO ROUND FREQUENTLY ON PT. BED IN LOW POSITION, CALL LIGHT WITHIN REACH.
--- NOTE | 2019-09-28 08:40 | NUR ---
ATTEMPTED TO ADMINISTER PT MORNING SCHEDULED MEDS BUT PT WAS UNABLE TO SWALLOW MEDS SAFELY. PT ABLE TO SWALLOW APPLESAUCE OK BUT WILL NOT SWALLOW MEDS. INFORMED AND STATED OK TO HOLD MEDS FOR NOW WHILE WE GET SWALLOW EVAL FOR PT. ADJUSTED PT HEPARIN PER PROTOCOL. PTT IS 26.9 SO HEP DRIP INCREASED FROM 490 INITIAL TO 570 THERAPEUTIC. WILL ORDER FOR PTT REDRAW IN 6HRS. HEPARIN BOLUS OF 1,200UNITS GIVEN. PER PHARMACY OK TO GIVE TO PT EVEN THOUGH SHE RECEIVED LOVENOX IN ER. PT TOLERATING HEPARIN WELL. NO SIGNS OF BLEEDING. PT WILL BE ROUNDED ON FREQUENTLY.
[2019-09-28] MEDS ORDERED: LACTOBACILLUS RHAMNOSUS GG 1 EACH CAP PO SCH (09:00)
--- NOTE | 2019-09-28 10:22 | NUR ---
PT SLEEPING. ALL NEEDS MET. WILL CONTINUE TO ROUND FREQUENTLY ON PT.
--- NOTE | 2019-09-28 11:12 | NUR ---
* ST NOTE * Pt seen at bedside. Pt asleep upon entering room. Upon awakening, pt alert and cooperative, reporting no c/o pain at this time. Bedside dysphagia and oral mechanism exams completed. See evaluation report for further details. Pt tolerating 5/5 alternating PO trials of puree apple sauce 1-3 CCs at a time via a spoon w/o s/s of aspiration or choking. Pt also tolerating 7/7 successive sips of thin liquid apple juice via a straw w/o s/s of aspiration or choking. Although pt demonstrating occasional residue of apple sauce on lingua and in oral cavity, pt clearing oral cavity of residue utilizing alternating btwn solids & liquids compensatory strategy, as facilitated by clinician. Pt and caregiver/Nsg Dana education completed re: aspiration precautions and safe swallow compensatory strategies pt and caregivers could utilize to aid pt w/swallow function, w/pt indifferent but caregiver/Dana verbalizing understanding and agreement w/clinician's recommendations. It is thus recommended pt's Po diet consistency be modified to puree textures w/thin liquids for all meals w/strict aspiration precautions in place. No further ST follow up recommended at this time. Pt and caregiver/Nsg Dana education completed re: results of evaluation; benefits of abiding by aspiration precautions and recommended PO diet consistency; and prognosis for improvement; with pt indifferent but caregiver/nsg Dana verbalizing understanding and agreement w/clinician's recommendations. Recommend: - PO DIET CONSISTENCY OF PUREE TEXTURES W/THIN LIQUIDS for all meals - PO MEDICATION ADMINISTRATION CRUSHED IN PUREE TEXTURES OR THIN LIQUIDS - MAINTAIN STRICT ASPIRATION PRECAUTIONS DURING PT'S PO INTAKE - Pt requires total assistance w/feeding - FEEDER TO SIT PT UP AT 80-90 DEGREE ANGLE DURING PO INTAKE; FEED PT SLOWLY; ALTERNATE BTWN SOLIDS & LIQUIDS; AND PROVIDE SMALL BITES/SIPS No further ST follow up recommended at this time. NOMS Level 3 Time In/Out 10:35 - 11:05
--- NOTE | 2019-09-28 11:43 | NUR ---
PT RESTING IN BED. ALL NEEDS MET. WILL CONTINUE TO ROUND ON PT.
[2019-09-28 12:00] VITALS: BP 120/77
[2019-09-28] MEDS: NACL 0.45% 1,000 ML IV SCH (12:16)
--- NOTE | 2019-09-28 12:19 | NUR ---
DC PLANNING 79 YRS OLD FEMALE PATIENT WAS ADMITTED FROM [facility] WITH A DX OF PNEUMONIA AND HYPOKALEMIA . PATIENT HAS A HX OF ESRD HD TTHS , DM, AND DEMENTIA. CXR REFLECTS ATELECTASIS VS PNEUMONIA ,CT ABD/PELVIS SMALL BILATERAL PLEURAL EFFUSION. EKG SHOWED A-FIB . ADMINISTERED IV ZOSYN NEPHRO CARDIO AND PULMO CONSULT ORDERED BLOOD CULTURE PENDING . DC PLAN TO GO BACK TO [facility] WHEN STABLE. CM TO FOLLOW. Addendum: 09/28/19 at 1452 by Mary Shaikh CM DC PLANNING PER DR ARVIZU FAMILY IS REQUESTING HOSPICE EVALUATION DISCUSSED WITH DAUGHTER FERNANDA. PER FERNANDA THEY HAVE SPOKEN AALIYAH BEFORE AND HAVE AN APPOINTMENT NEXT WEEK, BUT SHE WANTED TO DISCUSS WITH ANOTHER HOSPICE TOO. MICHAEL FROM [facility] WILL COME TO DISCUSS WITH THE PATIENT AND FAMILY MEMBER. CM TO FOLLOW
--- NOTE | 2019-09-28 13:21 | NUR ---
ALL NEEDS MET. WILL CONTINUE TO ROUND ON PT.
[2019-09-28] MEDS ORDERED: THERAHONEY GEL 42.5 GM TP PRN (13:25)
[2019-09-28] MEDS ORDERED: SODIUM PHOS / POTASSIUM PHOS 1 PKT PDR PO SCH (14:00)
--- NOTE | 2019-09-28 15:34 | NUR ---
09/28/19 RD INITIAL ASSESSMENT COMPLETED PLEASE REFER TO NUTRITION ASSESSMENT UNDER CARE ACTIVITY FOR ESTIMATED NUTRITIONAL NEEDS. 1. RECOMMEND A RENAL, CCHO 60GM PUREE DIET TOLERATED 2. RECOMMEND NEPRO BID 3. RECOMMEND VITAMIN C 250 MG DAILY FOR WOUND HEALING 4. PROVIDE FEEDING ASSISTANCE WITH MEALS 5. RD TO FOLLOW-UP 2-3 DAYS, HIGH RISK SHAKA TRUJILLO, RD
--- NOTE | 2019-09-28 15:40 | NUR ---
PT SLEEPING. ALL NEEDS MET. WILL CONTINUE TO ROUND ON PT.
[2019-09-28 16:00] VITALS: BP 126/64
--- NOTE | 2019-09-28 17:54 | NUR ---
PT RESTING IN BED. ALL NEEDS MET. WILL CONTINUE TO ROUND ON PT.
--- NOTE | 2019-09-28 19:25 | NUR ---
ENDORSED PT TO SPRINKLER IRRIGATION EQUIPMENT MECHANIC FOR CONTINUITY OF CARE. PT IN STABLE CONDITION AT THIS TIME.
--- NOTE | 2019-09-28 19:30 | NUR ---
RECEIVED BEDSIDE REPORT FROM AM SHIFT RN FOR PT'S CONTINUITY OF CARE. PT IS LYING DOWN, TRYING TO TAKE OFF HER GOWN, AAOX0, UKRAINIAN SPEAKING, IS ON FRAME PULLEY MORTISING MACHINE OPERATOR, ON 2L O2 NC, DENIES ANY PAIN AT THIS TIME. SAFETY MEASURES IN PLACE. CALL LIGHT IS WITHIN REACH. WILL MONITOR PT THROUGHOUT SHIFT.
--- NOTE | 2019-09-28 19:37 | NUR ---
RECEIVED CALL FROM ANAHI FROM [facility] RE: RESULT OF US ARTERIAL DOPPLER. DISCUSSED WITH MD, NO NEW ORDERS SINCE PT IS ALREADY ON HEPARIN DRIP.
[2019-09-28 20:00] VITALS: BP 134/99
[2019-09-28] MEDS: ATORVASTATIN 20 MG TAB PO SCH (20:38)
--- NOTE | 2019-09-28 20:38 | NUR ---
ADMINISTERED SCHEDULED PO MEDICATIONS CRUSHED IN APPLESAUCE, AND IV ABX ORDERED. PT TOLERATED IT WELL. BLOOD SUGAR CHECKED AND CHARTED. ADMINISTERED SUBQ INSULIN PER SS PROTOCOL. WILL CONTINUE TO MONITOR PT.
--- NOTE | 2019-09-28 21:00 | NUR ---
PT PULLED OUT IV WITH THE HEPARIN DRIP LINE. APPLIED PRESSURE AND WILL RESTART NEW IV LINE.
[2019-09-28] MEDS: INSULIN LISPRO SLIDING SCALE 100 UNITS/ML VIAL SUBQ PRN (21:06)
--- NOTE | 2019-09-28 22:20 | NUR ---
NEW IV INSERT RIGHT FA 24G. ASYMPTOMATIC, PATEN, AND INTACT.
--- NOTE | 2019-09-28 23:30 | NUR ---
LAB PERSONNEL AT BEDSIDE FOR PTT DRAW. STOPPED HEPARIN AND IV ABX DRIP. WILL RESUME AFTER LAB DRAW. PT TOLERATING IT WELL.
--- NOTE | 2019-09-28 23:45 | NUR ---
IV RESTARTED. PT ASLEEP WITH NO SIGNS OF DISTRESS. VS CHECKED AND CHARTED. WILL CONTINUE TO MONITOR PT.
[2019-09-29] VITALS (7 sets, daily range): BP systolic 100–163; BP diastolic 20–57
--- NOTE | 2019-09-29 00:35 | NUR ---
APTT RESULT-46.2 H, PER RX PROTOCOL, NO CHANGE IN RATE. INFORMED DR. BARR ABOUT THE RESULT, WILL RELAY MESSAGE TO DR. ADAMSON.
[2019-09-29] MEDS: hePARIN / DEXT 5% PREMIX 250 ML IV SCH ×3 (01:21→21:57)
--- NOTE | 2019-09-29 02:00 | NUR ---
MADE ROUNDS. PT ASLEEP WITH NO SIGNS OF DISTRESS.
[2019-09-29] MEDS: PIPERACILLIN/TAZOBACTAM 2.25 GM in DEXTROSE 5% 50 ML IV SCH ×3 (04:40→21:11)
--- NOTE | 2019-09-29 04:40 | NUR ---
ADMINISTERED SCHEDULED IV ABX ORDERED. VS CHECKED AND CHARTED. RIGHT CALF READS LOW BP, RIGHT THIGH READS HIGH BP. LAST BP ON RIGHT THIGH 163/56, NOTIFIED . NO NEW ORDERS, CONTINUE TO MONITOR PT.
--- NOTE | 2019-09-29 06:30 | NUR ---
BLOOD GLUCOSE CHECKED AND CHARTED. ADMINISTERED SCHEDULED PO MEDICATION ORDERED, CRUSHED IN APPLE SAUCE. PT TOLERATED IT WELL. PT DENIES ANY PAIN OR DISCOMFORT AT THIS TIME. HEPARIN DRIP STILL INFUSING. WILL ENDORSE TO AM SHIFT RN FOR PT'S CONTINUITY OF CARE.
[2019-09-29] MEDS: BLOOD GLUCOSE MONITORING 1 DEV DEV FS SCH ×4 (06:36→21:22)
[2019-09-29] MEDS: LEVOTHYROXINE 0.1 MG TAB PO SCH (06:37)
--- NOTE | 2019-09-29 07:00 | NUR ---
LAB PERSONNEL AWARE OF THE 0530 PTT DRAW. NOT DRAWN YET. WELDING ROD COATER AWARE, ENDORSED TO AM SHIFT RN.
--- NOTE | 2019-09-29 07:20 | NUR ---
RECEIVED BEDSIDE REPORT FROM WARP HANGER NURSE, PT IS AWAKE BUT NOT ORIENTED, GETTING HER BLOOD DRAWN AT THIS TIME. IV SITES NOTED RUE 22 G INFUSING HEPARIN DRIP AT 730 UNITS/HR, AND R FA 24 G INFUSING 1/2 NS 10 ML/HR. L AV SHUNT NOTED FOR HD. PT IS ORDERED TO HAVE DIALYSIS TODAY. PER WARP HANGER NURSE, PT IS ANURIC. BILATERAL FEET DIABETIC ULCERS ARE WRAPPED WITH KERLIX AND KE WRAPS. PT ALSO HAS A R FLANK BRUISE EXTENDING UP TO THE AXILLARY AREA, AND SACRAL/PERIANAL REDNESS (INTACT). FALL PRECAUTIONS ARE IN PLACE. CALL LIGHT IS WITHIN REACH.
--- NOTE | 2019-09-29 08:15 | NUR ---
RECEIVED A CALL FROM CLOTH SHRINKING SUPERVISOR, NEITHER OF THE THREE LAB TECHS WERE ABLE TO DRAW PT'S BLOOD THIS AM. PT NEEDS A PTT AT 5:30 THIS AM. RYAN JOSHUA IS AWARE. JUANIS ARAGON MADE AWARE ALSO.
[2019-09-29] MEDS: CALCIUM ACETATE 667 MG TAB PO SCH ×3 (08:54→16:25)
[2019-09-29] MEDS: FOLIC ACID 1 MG TAB PO SCH (08:54)
[2019-09-29] MEDS: LACTOBACILLUS RHAMNOSUS GG 1 EACH CAP PO SCH (08:54)
[2019-09-29] MEDS: VIT-B COMP/VIT-C/FOLIC ACID 1 TAB PO SCH (08:54)
[2019-09-29] MEDS: DONEPEZIL 10 MG TAB PO SCH (08:54)
[2019-09-29] MEDS: FERROUS SULFATE 325 MG TABEC PO SCH ×2 (08:54→16:25)
[2019-09-29] MEDS: traMADol 50 MG TAB PO SCH ×3 (08:55→16:25)
[2019-09-29] MEDS: ASPIRIN 81 MG TAB.CHEW PO SCH (08:55)
[2019-09-29] MEDS: METOPROLOL 25 MG TAB PO SCH ×2 (08:55→21:00)
[2019-09-29] MEDS: LISINOPRIL 5 MG TAB PO SCH (08:56)
[2019-09-29] MEDS: ASCORBIC ACID 500 MG TAB PO SCH (08:56)
[2019-09-29] MEDS ORDERED: MILD SOAP AND WATER TP SCH (09:00)
--- NOTE | 2019-09-29 09:07 | NUR ---
ADMINISTERED AM MEDS, CRUSHED IN APPLE SAUCE, PT TOLERATED WELL.
--- NOTE | 2019-09-29 09:55 | NUR ---
PT'S DAUGHTER VISITING AT BEDSIDE
--- NOTE | 2019-09-29 10:26 | NUR ---
OBTAINED CONSENT FROM PT'S DAUGHTER CHIP FOR HEMODIALYSIS
--- NOTE | 2019-09-29 10:30 | NUR ---
TRUCK DRIVER HEAVY ADRYAN IS AWARE THAT NO ONE FROM THE LAB HAS BEEN ABLE TO DRAW PT'S BLOOD FROM HER R ARM, UPON SEVERAL ATTEMPTS EACH. THE L ARM IS RESTRICTED DUE TO DIALYSIS SHUNT. HOUSE SUP WILL ADVISE LAB TECHS TO TRY TO DRAW A SPECIMEN FROM THE LEGS.
--- NOTE | 2019-09-29 10:39 | NUR ---
PT IS GETTING CLEANED AND CHANGED AT THIS TIME.
--- NOTE | 2019-09-29 11:10 | NUR ---
DR CURRY PUT IN ANOTHER ORDER FOR THE LAB TO TRY TO DRAW PT'S PTT SPECIMEN FROM HER LEG.
[2019-09-29] MEDS: NACL 0.45% 1,000 ML IV SCH (11:49)
--- NOTE | 2019-09-29 12:13 | NUR ---
PT BILATERAL FOOT WOUND CARE DONE, THERAHONEY AND ADAPTIC APPLIED PER PODIATRY ORDER, WRAPPED WITH GAUZE AND KE WRAPS.
--- NOTE | 2019-09-29 12:27 | NUR ---
DR CURRY PROVIDED A WRITTEN ODER FOR THE LAB TO TRY TO DRAW BLOOD SPECIMENS ON PT'S LEG. Addendum: 09/29/19 at 1311 by Jackie Shepard RN LAB ORDER WAS GIVEN TO DANA IN THE LAB
[2019-09-29] MEDS: DRY DRESSING TP SCH (12:29)
[2019-09-29] MEDS: INSULIN LISPRO SLIDING SCALE 100 UNITS/ML VIAL SUBQ PRN (12:32)
--- NOTE | 2019-09-29 13:37 | NUR ---
PT'S FAMILY HERE, THEY ARE ASKING ABOUT PT'S SLIDING SCALE INSULIN PROTOCOL, THEY ARE SAYING THAT THE AMOUNT OF INSULIN WE GIVE PER OUR SLIDING SCALE IS TOO HIGH. THEY PROVIDED A HANDOUT SPECIFYING PT'S HOME SLIDING SCALE. I GAVE THE HANDOUT TO DR CURRY. HE WILL CHANGE THE SLIDING SCALE PER PT'S HOME PROTOCOL. ALSO, PT'S DIET TEXTURE CHANGED TO PUREED, FROM REGULAR.
--- NOTE | 2019-09-29 13:41 | NUR ---
DANA FROM LAB IS HERE TO DRAW PT'S BLOOD AT THIS TIME.
[2019-09-29 14:02] LABS: BASOPHILS % (AUTO) 0.7 % (0.0-2.0); EOSINOPHILS % (AUTO) 0.8 % (0.0-4.0); LYMPHOCYTES # (AUTO) 0.2 K/uL (2.5-16.5); LYMPHOCYTES % (AUTO) 4.2 % (20.5-51.1); MEAN CORPUSCULAR HEMOGLOBIN 30 pg (27-31); MEAN CORPUSCULAR HGB CONC 31 g/dL (33-37); MEAN CORPUSCULAR VOLUME 95.4 fL (80-94); MONOCYTES # (AUTO) 0.2 K/uL (0.8-1.0); MONOCYTES % (AUTO) 3.5 % (1.7-9.3); NEUTROPHILS # (AUTO) 4.8 K/uL (1.8-7.7); NEUTROPHILS % (AUTO) 90.8 % (42.2-75.2); PLATELET COUNT (AUTO) 129 K/uL (140-450); RED BLOOD CELL COUNT(AUTO) 3.04 MIL/uL (4.20-5.40); RED CELL DISTRIBUTION WIDTH 18.1 % (11.6-13.7); WHITE BLOOD COUNT (AUTO) 5.3 K/uL (4.8-10.8)
[2019-09-29 14:10] LABS: PROTHROMBIN TIME 14.3 secs (10.8-13.4)
[2019-09-29 14:13] LABS: ANION GAP 13.3 (8-16); CARBON DIOXIDE 31.7 mmol/L (21-32); CHLORIDE 102 mmol/L (98-107); GLUCOSE 344 mg/dL (74-106); SODIUM SERUM 143 mmol/L (136-145); UREA NITROGEN, BLOOD 45 mg/dL (7-18)
--- NOTE | 2019-09-29 14:35 | NUR ---
PT'S HEPARIN DRIP DECREASED TO 650 UNITS/HR PER PHARMACY PROTOCOL, AND ORDERED THE NEXT PTT DRAW FOR 20:30.
[2019-09-29 15:00] LABS: PHOSPHORUS 1.3 mg/dL (2.5-4.9)
[2019-09-29] MEDS ORDERED: POTASSIUM PHOSPHATE 15 MM in NACL 0.9% 250 ML IV SCH (15:30)
--- NOTE | 2019-09-29 17:15 | NUR ---
PT GETTING DIALYSIS AT THIS TIME
--- NOTE | 2019-09-29 19:00 | NUR ---
@ AROUND 1855, THE DIALYSIS NURSE NOTIFIED ME THAT PT'S BREATHING IS LABORED, PT IS LESS RESPONSIVE THAN BEFORE, AND THAT PATIENT "DOES NOT LOOK GOOD". THE VITAL SIGNS ARE STILL STABLE, HOWEVER. I ASSESSED TO PATIENT, VITAL SIGNS WERE STABLE TO PATIENT'S BASELINE, BP WAS ABOVE 100 SYSTOLIC THROUGHOUT THE DIALYSIS. PT'S RESPIRATIONS WERE LABORED AND DEEP. HER SKIN COLOR LOOKED MORE ASHEN. DR HODGSON WAS NOTIFIED, HE CAME TO ASSESS THE PT. CHARGE NURSE TRES AND HOUSE MARGO CORNELIUS MADE AWARE. BLOOD GLUCOSE CHECK REVEALED 258. DIALYSIS WAS STOPPED AT 1.1 LITERS.
--- NOTE | 2019-09-29 19:30 | NUR ---
ENDORSED PT TO THE BRAKE SPECIALIST NURSE. PT'S BP IS STABLE, BUT O2 IS DECREASED AND FLUCTUATES BETWEEN 80S AND 90S. PT'S AND ROOM TEMP IS COOL, WHICH COULD EXPLAIN WHY THE OXIMETER CANNOT CAPTURE AN ACCURATE READING. PT IS CURRENTLY ON 3.5 L O2 NC.
--- NOTE | 2019-09-29 19:35 | NUR ---
RECEIVED REPORT ON PT FROM AM NURSE FOR CONTINUITY OF CARE. PT IS NON RESPONSIVE. OUTGOING AND INCOMING RESIDENTS ON DUTY HERE TO EVALUATE PT. HD DISCONTINUED EARLY DUE TO PT 'S CHANGE IN CONDITION. ON O2 3.5L MIN AND O2 SAT UNABLE TO CAPTURED . SKIN /EXTREMITIES ARE COLD. WARM BLANKET PROVIDED. WILL CONTINUE TO MONITOR. STILL ON HEPARIN DRIP INFUSING ON TH ELT UPPER ARM G#22. IVF INFUSING ON RT FA g24. BED ON LOWEST POSITION. CALL LIGHT WITHIN EASY REACH. FREQ ROUNDS NEEDED. WILL CONTINUE TO MONITOR.
--- NOTE | 2019-09-29 19:45 | NUR ---
PT CONDITION UNSTABLE . BREATHING FAST . O2 INCREASED BY RESIDENT. MD AT 3.5L NC. HD WAS DISCONTINUED AFTER 11/2 HR WITH 1.1 L OUTPUT. CALLED THE FAMILY AND ABLE TO TALK TO NURY, DAUGHTER. SHE WAS AWARE ABOUT THE PT'S CHANGE IN CONDITION. WILL UPDATE THEM WITH ANY OTHER PROBLEM DURING THE SHIFT. DR. HODGSON ,RESIDENT ALSO MADE AWARE ABOUT THIS CONDITION. HE SAID WILL ORDER NON -REBREATHER MASK FOR PT.
--- NOTE | 2019-09-29 20:04 | NUR ---
EMY,DAUGHTER CAME TO SEE PT. GIVEN UPDATE ABOUT PT'S CONDITION.
--- NOTE | 2019-09-29 20:57 | NUR ---
ASSESED PATIENT TO SEE IF THEY NEED A NON REBREATHER. PT WAS INCREASED FROM 2L TO 4L NC. DROPPED PATIENT BACK DOWN TO 2L AND IS SAT 97-98%. RN AND FAMILY WAS AT BEDSIDE
[2019-09-29] MEDS: ATORVASTATIN 20 MG TAB PO SCH (21:00)
--- NOTE | 2019-09-29 21:15 | NUR ---
DUE PO MEDS NOT GIVEN TONIGHT, FOR PT IS LETHARGIC, NON RESPONSIVE. DAUGHTER EMY AWARE WHILE SHE WAS HERE EARLIER.
--- NOTE | 2019-09-29 21:22 | NUR ---
BLOOD SUGAR WAS CHECKED RESULT 198. INSULIN COVERAGE HUMALOG 1 UNIT NOT GIVEN. FAMILY REFUSED TO GIVE ANY INSULIN TONIGHT . WILL CONTINUE TO MONITOR.
--- NOTE | 2019-09-29 21:55 | NUR ---
NICOLAS CALLED FOR PTT RESULT 59.5 .PER HEPARIN PROTOCOL NO CHANGE ON THE PRESENT RATE. WILL ORDER THE NEXT PTT AT 0300 TOMORROW. Addendum: 09/30/19 at 0058 by Claudia Mendosa RN LAB CALLED .
--- NOTE | 2019-09-29 22:30 | NUR ---
MADE ROUNDS. PT HAS BEEN STABLE WITH O2 SAT 97%-98% ON O22L/NC. WILL CONTINUE TO MONITOR.
[2019-09-30] VITALS (7 sets, daily range): BP systolic 132–184; BP diastolic 55–80
--- NOTE | 2019-09-30 00:50 | NUR ---
DR. HODGSON MADE AWARE ABOUT PT HR ON MONITOR IS JUNCTIONAL RHYTHM WITH PAC AND INVERTED P WAVE. ASYMPTOMATIC. HE SAID JUST CONTINUE TO MONITOR PT.
--- NOTE | 2019-09-30 02:00 | NUR ---
MADE ROUNDS. PT ASLEEP. WITH NO DISTRESS NOTED. O2 SAT 97% ON O22L/NC. WILL CONTINUE TO MONITOR.
--- NOTE | 2019-09-30 03:10 | NUR ---
TRAVEL CONSULTANT CAME TO DRAW BLOOD FOR PTT.
--- NOTE | 2019-09-30 04:00 | NUR ---
UNABLE TO DRAW BLOOD ON THE LEG. WILL TRY THE RT ARM. IVF AND HEPARIN DRIP HOLD FOR FEW MINUTES. LAB TO COME BACK TO TRY DRAW BLOOD AGAIN.
[2019-09-30] MEDS: PIPERACILLIN/TAZOBACTAM 2.25 GM in DEXTROSE 5% 50 ML IV SCH ×3 (04:19→21:59)
[2019-09-30] MEDS ORDERED: hydrALAZINE 20 MG/ML VIAL IVP SCH (04:30)
--- NOTE | 2019-09-30 04:30 | NUR ---
NICHOLAS MYERSSENIOR INFORMATICA DEVELOPER ALSO TRIED TO DRAW BLOOD FOR PTT AND AM LABS, BUT FAILED. LAB TO COME BACK AND TRY AGAIN.
--- NOTE | 2019-09-30 05:49 | NUR ---
BP @[address] HODGSON MADE AWARE WITH ORDER. HYDRALAZINE 5 MG IVP GIVEN. AND REASSESSED AT THIS TIME. BP 172/59,HR-70. NO DISTRESS NOTED. WILL CONTINUE TO MONITOR.
[2019-09-30] MEDS: BLOOD GLUCOSE MONITORING 1 DEV DEV FS SCH ×4 (06:05→22:00)
[2019-09-30] MEDS: LEVOTHYROXINE 0.1 MG TAB PO SCH (06:08)
[2019-09-30] MEDS ORDERED: HYDRAGUARD CREAM TP PRN (06:25)
--- NOTE | 2019-09-30 06:40 | NUR ---
BLOOD SUGAR WAS CHECKED RESULT 168 @ 0605. PT IS STILL LETHARGIC, INSULIN COVERAGE HUMALOG 1 UNIT NOT GIVEN .SYNTHROID DUE ALSO NOT GIVEN . DR. HODGSON ,RESIDENT ON DUTY MADE AWARE.
--- NOTE | 2019-09-30 06:53 | NUR ---
CALLED LAB AND ASKED IF ANYBODY TO COME AGAIN AND TRY TO DRAW BLOOD ON PT. SAID WE HAVE TO WAIT FOR THE SENIOR BUDGET ANALYST DAVID @ 0730. DR. ZHENG ALSO AWARE THAT UNABLE TO DRAW BLOOD FOR PTT AND AM LABS AFTER SEVERAL ATTEMPTS.
--- NOTE | 2019-09-30 07:30 | NUR ---
ENDORSED PT IN STABLE CONDITION TO AM NURSE FOR CONTINUITY OF CARE.
--- NOTE | 2019-09-30 07:35 | NUR ---
RECEIVED PT FROM SAMPLE TESTER GRINDER NURSE, PT IS ASLEEP BUT AROUSABLE, LYING ON THE BED, SIDE RAILS ARE UP AND CALL LIGHT WITHIN REACH, RESTRICTED ARM ON THE LEFT SIDE FOR DIALYSIS ACCESS, IV LINES ON THE RT UA G. 22 WITH HEPARIN DRIP AT 650 UNITS/HR AND A G. 24 ON THE RT FA ON SALINE LOCK, NO SIGN OF DISTRESS NOTED, BREATHING IS NORMAL AND THROUGH MOUTH, VISIBLE CHEST RISE AND WILL CONTINUE TO BE MONITORED
[2019-09-30] MEDS ORDERED: MILD SOAP AND WATER TP PRN (09:00)
[2019-09-30] MEDS: DONEPEZIL 10 MG TAB PO SCH (10:17)
[2019-09-30] MEDS: LISINOPRIL 5 MG TAB PO SCH (10:20)
[2019-09-30] MEDS: ASPIRIN 81 MG TAB.CHEW PO SCH (10:20)
[2019-09-30] MEDS: ASCORBIC ACID 500 MG TAB PO SCH (10:21)
[2019-09-30] MEDS: LACTOBACILLUS RHAMNOSUS GG 1 EACH CAP PO SCH (10:21)
[2019-09-30] MEDS: traMADol 50 MG TAB PO SCH ×3 (10:21→17:14)
[2019-09-30] MEDS: VIT-B COMP/VIT-C/FOLIC ACID 1 TAB PO SCH (10:21)
[2019-09-30] MEDS: FOLIC ACID 1 MG TAB PO SCH (10:22)
[2019-09-30] MEDS: METOPROLOL 25 MG TAB PO SCH ×2 (10:26→22:00)
--- NOTE | 2019-09-30 10:26 | NUR ---
ORAL MEDICATIONS WERE GIVEN TO PT NOW, PT IS AWAKE AND COMPLIANT TOOK ALL THE MEDICATIONS, CRUSHED WITH APPLE SAUCE AND THICKENED WATER. DR. CURRY TALKING TO FAMILY REGARDING HOSPICE CARE.
[2019-09-30] MEDS: FERROUS SULFATE 325 MG TABEC PO SCH ×2 (10:27→17:14)
[2019-09-30] MEDS: CALCIUM ACETATE 667 MG TAB PO SCH ×3 (10:27→17:14)
[2019-09-30] MEDS: NACL 0.45% 1,000 ML IV SCH (11:45)
[2019-09-30] MEDS ORDERED: THERAHONEY GEL 42.5 GM TP SCH (12:05)
--- NOTE | 2019-09-30 12:54 | NUR ---
BLOOD GLUXOSE CHECK DONE AND IS 169 AND DAUGHTER WERE ON THE BEDSIDE AND SAID NOT TO GIVE INSULIN TO PT BECAUSE THEY USUSALLY START WITH A READING OF 175 FOR THE SLIDING SCALE.
[2019-09-30] MEDS: DRY DRESSING TP SCH (13:00)
[2019-09-30] MEDS: HYDRAGUARD CREAM TP SCH (13:00)
[2019-09-30] MEDS ORDERED: THERAHONEY GEL 42.5 GM TP PRN (13:01)
--- NOTE | 2019-09-30 13:42 | NUR ---
IV ZOSYN IVPB WAS GIVEN TO PT NOW.
--- NOTE | 2019-09-30 17:07 | NUR ---
BLOOD GLUCOSE CHECK DONE AND IS 203 AND INSULIN WAS GIVEN 2 UNITS BASED ON SLIDING SCALE, ON THE ABDOMEN. ORAL MEDICATIONS WERE GIVEN WELL, WILL MONITOR PT, FAMILY ON THE BEDSIDE.
[2019-09-30] MEDS: INSULIN LISPRO SLIDING SCALE 100 UNITS/ML VIAL SUBQ PRN (17:16)
[2019-09-30] MEDS ORDERED: hePARIN / DEXT 5% PREMIX 250 ML IV ONE (18:00)
[2019-09-30] MEDS: hePARIN / DEXT 5% PREMIX 250 ML IV SCH (18:06)
--- NOTE | 2019-09-30 18:06 | NUR ---
A NEW BAG OF HEPARIN IVF NOW AT A RATE OF 6.5ML/HR
--- NOTE | 2019-09-30 19:15 | NUR ---
ENDORSED PT TO [facility] SHIFT NURSE FOR CONTINUITY OF CARE.
--- NOTE | 2019-09-30 19:30 | NUR ---
RECEIVED BEDSIDE REPORT FROM AM SHIFT RN FOR PT'S CONTINUITY OF CARE. PT IS LYING DOWN ASLEEP WITH NO SIGNS OF DISTRESS. PT'S FAMILY MEMBER AT BEDSIDE, EXPLAINED TO THEM THE STILL TENDER ROUTINE, FAM MEMBER VERBALIZED UNDERSTANDING. PT IS ON 2L O2 VIA NC, ON GREIGE MENDER, HAS RIGHT UA 22G WITH HEPARIN DRIP, AND RIGHT FA 24G WITH 1/2 NS KVO, SAFETY MEASURES AND OFF LOAD PRESSURE IN PLACE. WILL MONITOR PT THROUGHOUT SHIFT.
--- NOTE | 2019-09-30 21:00 | NUR ---
ATTEMPTED TO WAKE UP PT AND GIVE SOME WATER WITH THICKENER. PT UNABLE TO SWALLOW AND SHAKING HER HEAD. WILL TRY AGAIN LATER.
[2019-09-30] MEDS: ATORVASTATIN 20 MG TAB PO SCH (22:00)
--- NOTE | 2019-09-30 22:02 | NUR ---
ATTEMPTED TO AROUSE PT FOR MEDICATION ADMINISTRATION. PT ASLEEP, SHOOK HEAD WHEN TRYING TO FEED APPLESAUCE, SPITTING OUT APPLESAUCE. PT UNABLE TO SWALLOW. BLOOD GLUCOSE CHECKED AND CHARTED, 155 RESULT, NOTIFIED MD, HOLD INSULIN PER MD. WILL NOTIFY MD FOR NON-ADMINISTRATION OF MEDICATION.
[2019-10-01] VITALS: BP 158/60
[2019-10-01] MEDS: HYDRAGUARD CREAM TP SCH
--- NOTE | 2019-10-01 | NUR ---
VS CHECKED AND CHARTED. PT ASLEEP WITH NO SIGNS OF DISTRESS. REASSESSED HEPARIN DRIP AND IV SITE, PATENT AND INTACT. LINEN CHANGED. HYDRAGUARD ADMINISTERED. WILL CONTINUE TO MONITOR PT.
--- NOTE | 2019-10-01 02:40 | NUR ---
MADE ROUNDS. PT ASLEEP WITH NO SIGNS OF DISTRESS.
[2019-10-01 04:00] VITALS: BP 134/84
--- NOTE | 2019-10-01 04:00 | NUR ---
VS CHECKED AND CHARTED. PT ASLEEP WITH NO SIGNS OF DISTRESS. PT REPOSITIONED.
--- NOTE | 2019-10-01 05:10 | NUR ---
ADMINISTERED SCHEDULED IV ABX ORDERED. PT ASLEEP WITH NO SIGNS OF DISTRESS. WILL CONTINUE TO MONITOR PT.
[2019-10-01] MEDS: PIPERACILLIN/TAZOBACTAM 2.25 GM in DEXTROSE 5% 50 ML IV SCH (05:14)
[2019-10-01] MEDS: LEVOTHYROXINE 0.1 MG TAB PO SCH (06:08)
--- NOTE | 2019-10-01 06:10 | NUR ---
DID A SWALLOW TEST WITH WATER AND THICKENER, AND APPLE SAUCE. PT WAS UNABLE TO SWALLOW. SCHEDULED PO MEDICATION NOT ADMINISTERED. BLOOD GLUCOSE CHECKED AND CHARTED, WILL ADMINISTER SUBQ INSULIN PER SS PROTOCOL. WILL CONTINUE TO MONITOR PT.
[2019-10-01] MEDS: BLOOD GLUCOSE MONITORING 1 DEV DEV FS SCH ×2 (06:17→11:56)
[2019-10-01] MEDS: INSULIN LISPRO SLIDING SCALE 100 UNITS/ML VIAL SUBQ PRN (06:29)
--- NOTE | 2019-10-01 06:33 | NUR ---
ADMINISTERED SUBQ INSULIN PER PROTOCOL. PT TOLERATED IT WELL. WILL ENDORSE TO AM SHIFT RN FOR PT'S CONTINUITY OF CARE.
--- NOTE | 2019-10-01 07:20 | NUR ---
WAS GIVEN BEDSIDE REPORT FROM MANAGER HOSPICE NURSE. PATIENT WAS ASLEEP IN BED. PATIENT IS AAX0, AROUSABLE TO VOICE AND PAIN. PATIENT SPEAKS MONTSERRATIAN AND RESPONDS WITH ONE OR TWO WORDS. BREATHING IS EVEN AND UNLABORED ON 2L O2 NASAL CANNULA. NO SIGNS OF DISTRESS NOTED. IV ON R FOREARM 24G, CLEAN AND INTACT INFUSING PER MD ORDER. IV ON R UPPER ARM 22G, CLEAN AND INTACT, INFUSING HEPARIN DRIP AT 6.5 ML/HR, 650 UNITS. SKIN IS WARM TO TOUCH, WITH PRESSURE ULCER ON BOTH HEELS AND LEFT DORSAL FOOT WOUND, REDNESS ON SACRAL. HEEL PROTECTORS IN PLACE. PATIENT IS INCONTINENT AND ON BEDREST. SAFETY MEASURES ASSESSED, BED IS IN LOW POSITION, CALL LIGHT IS WITHIN REACH. TELE MONITOR IS ATTACHED.
[2019-10-01 08:00] VITALS: BP 133/67
[2019-10-01] MEDS: CALCIUM ACETATE 667 MG TAB PO SCH (08:57)
[2019-10-01] MEDS: METOPROLOL 25 MG TAB PO SCH (08:57)
[2019-10-01] MEDS: FERROUS SULFATE 325 MG TABEC PO SCH (08:57)
[2019-10-01] MEDS: ASPIRIN 81 MG TAB.CHEW PO SCH (08:58)
[2019-10-01] MEDS: traMADol 50 MG TAB PO SCH (08:58)
[2019-10-01] MEDS: DONEPEZIL 10 MG TAB PO SCH (08:58)
[2019-10-01] MEDS: LACTOBACILLUS RHAMNOSUS GG 1 EACH CAP PO SCH (08:58)
[2019-10-01] MEDS: FOLIC ACID 1 MG TAB PO SCH (08:58)
[2019-10-01] MEDS: ASCORBIC ACID 500 MG TAB PO SCH (08:59)
[2019-10-01] MEDS: LISINOPRIL 5 MG TAB PO SCH (08:59)
[2019-10-01] MEDS: VIT-B COMP/VIT-C/FOLIC ACID 1 TAB PO SCH (08:59)
--- NOTE | 2019-10-01 09:02 | NUR ---
BP WAS CHECKED BEFORE GIVING BP MEDICATION, BP WAS 146/69 WITH A PULSE OF 64. ADMINISTERED MEDICATIONS ORDERED, MEDS ED PROVIDED AND REINFORCEMENT NEEDED, CRUSHED AND MIXED IN APPLESAUCE. PT WAS ABLE TO SWALLOW THEM SUCCESSFULLY. RESPIRATION EVEN AND UNLABORED ON 2LPM VIA NC. DENIED PAIN. NO SIGNS OF DISTRESS NOTED AT THIS TIME. BED IS IN LOW POSITION AND CALL LIGHT WITHIN REACH. TELE MONITOR ATTACHED. FALL RISK PROTOCOL IN PLACE AND BED ALARM ACTIVATED.
--- NOTE | 2019-10-01 09:14 | NUR ---
RECEIVED CALL FROM [facility] AND SPOKE WITH DEMIAN, ANSWERED ALL DEMIAN'S QUESTIONS AND PROVIDED FULL REPORT. PER DEMIAN, THEY WILL SEND AMBULANCE TO METEOROLOGY INSTRUCTOR PT AROUND 1040 AND THEY WILL ALSO NOTIFY THE DAUGHTER.
--- NOTE | 2019-10-01 09:51 | NUR ---
POC DISCUSSED, DR. ADAMSON ORDER TO CANCEL WOUND CONSULT.
--- NOTE | 2019-10-01 10:10 | NUR ---
PT'S DAUGHTERS ARE BY BEDSIDE AND INTERACTING WITH PT. NO SIGNS OF DISTRESS NOTED. SAFETY MEASURES IN PLACE. TELE MONITOR ATTACHED.
--- NOTE | 2019-10-01 11:14 | NUR ---
PT IS CHANGE AND READY FOR DC. WOUND PICTURES TAKEN. DAUGHTERS ARE BY BEDSIDE. AWAITING FOR TRANSPORTATION TO ARRIVED. NO SIGNS OF DISTRESS NOTED. TELE MONITOR ATTACHED. SAFETY MEASURES IN PLACE.
--- NOTE | 2019-10-01 12:05 | NUR ---
PT COMPLAINED PAIN OF 5/10 OH HER L FOOT, MEDICATED WITH PRN PAIN MED NORCO, CRUSHED AND MIXED WITH APPLESAUCE. DAUGHTERS ARE BY BEDSIDE AND AWAITING FOR TRANSPORTATION TO ARRIVE FOR DC. NO SIGNS OF DISTRESS NOTED. TELE MONITOR ATTACHED. SAFETY MEASURES IN PLACE.
--- NOTE | 2019-10-01 12:15 | NUR ---
DISCHARGE INSTRUCTION PROVIDED TO PT AND PT'S DAUGHTERS BY BEDSIDE. EDUCATED PT AND FAMILY MEMBERS ON DISEASE MANAGEMENT, DIET, MEDICATIONS AND SIDE EFFECTS, WOUND CARE. ANSWERED ALL QUESTIONS, ALL VERBALIZED UNDERSTANDING. REMOVED ALL IV AND CANNULA INTACT, NO BLEEDING ON IV SITES. REMOVED ALL ARM BAND. PT IS UP TO DATE ON VACCINATION. DAUGHTER CHECKED ALL THE CABINETS AND TOOK ALL PT'S BELONGINGS HOME. PROVIDED PRINT OUT DISCHARGE INSTRUCTION. PT IS GOING TO DISCHARGE AT THIS TIME ACCOMPANIED BY DAUGHTER AND TRANSPORT PERSONNEL. PT IS IN STABLE CONDITION.
== END 2019-10-01 12:15 | disposition home or self-care (01) | DRG 177 ==
LOC: MED 12:36 → MTU 17:23
PROVIDERS: ADMIT General Practice; ATTEND General Practice
PROC: 5A1D70Z Performance of Urinary Filtration, Intermittent, Less than 6 Hours Per Day (ICD-10-PCS; principal; 2019-09-29)
DX: J69.0 Pneumonitis due to inhalation of food and vomit (principal); N17.0 Acute kidney failure with tubular necrosis; I50.43 Acute on chronic combined systolic (congestive) and diastolic (congestive) heart failure; N18.6 End stage renal disease; E43 Unspecified severe protein-calorie malnutrition; G93.41 Metabolic encephalopathy; I21.A1 Myocardial infarction type 2; Z68.1 Body mass index [BMI] 19.9 or less, adult; I13.2 Hypertensive heart and chronic kidney disease with heart failure and with stage 5 chronic kidney disease, or end stage renal disease; E87.0 Hyperosmolality and hypernatremia; I82.4Z1 Acute embolism and thrombosis of unspecified deep veins of right distal lower extremity; J98.11 Atelectasis; E11.22 Type 2 diabetes mellitus with diabetic chronic kidney disease; F03.90 Unspecified dementia, unspecified severity, without behavioral disturbance, psychotic disturbance, mood disturbance, and anxiety; K21.9 Gastro-esophageal reflux disease without esophagitis; E87.6 Hypokalemia; E87.70 Fluid overload, unspecified; Z83.3 Family history of diabetes mellitus; Z82.49 Family history of ischemic heart disease and other diseases of the circulatory system; Z84.1 Family history of disorders of kidney and ureter; E83.39 Other disorders of phosphorus metabolism; D64.9 Anemia, unspecified; E78.1 Pure hyperglyceridemia; E03.9 Hypothyroidism, unspecified; L89.620 Pressure ulcer of left heel, unstageable; L89.610 Pressure ulcer of right heel, unstageable; B35.1 Tinea unguium
CPT/HCPCS: 36415; 70450; 71045; 73630; 80048; 80053; 82140; 82150; 82948; 83036; 83605; 83690; 83735; 83880; 84100; 84439; 84443; 84484; 85025; 85610; 85730; 87040; 87070; 87081; 87186; 92610; 93005; 93922; 93925; 93970; 96365; 96372; 99285; J0360; J1644; J1650; J2001; J2543; J3480; J7030; J7060; Q0092